=== PATIENT | male | born 1935 | race Caucasian/White ===

== ENCOUNTER 2016-11-28 13:51 | Inpatient (IN) | payer OTHER, MEDICARE ==
[~2016-11-28] VITALS: Ht 177.8 cm; Wt 85.0 kg
[~2016-11-28 13:51] MED LIST: DONE10TA14 PO; LISI30TA44 PO; METO50TA PO; RIFA150 PO; WARF5TAB PO; Z.0.COMMODE-3:1; Z.0.CPM; Z.0.WALKERFRONT; ZOCO10TA PO; ZOCO20TA PO
[2016-12-01] MEDS ORDERED: INSULIN HUMAN REGULAR 1,000 UNITS/10 ML VIAL SQ PRN (14:00)
[2016-12-01] MEDS: CHLORHEXIDINE GLUCONATE 4% SOLN 120 ML BTL TOP SCH (14:00)
[2016-12-01] MEDS ORDERED: METOPROLOL TARTRATE 25 MG TAB PO PRN (14:00)
[2016-12-01] MEDS ORDERED: SODIUM CHLORID 0.9% 500 ML IV SCH (14:00)
[2016-12-01] MEDS: LACTATED RINGER'S 1000 ML IV SCH (14:15)
[2016-12-01] MEDS ORDERED: VITA200013 PO (14:24)
[2016-12-01] MEDS ORDERED: PYRI100T PO (14:24)
[2016-12-01] MEDS ORDERED: ASCOPOW PO (14:24)
[2016-12-01] MEDS ORDERED: MEMA1TAB2 PO (14:24)
[2016-12-01] MEDS ORDERED: LISI30TA4 PO (14:24)
[2016-12-01] MEDS ORDERED: FISH120014 PO (14:24)
[2016-12-01] MEDS ORDERED: MULT1TAB84 PO (14:24)
[2016-12-01] MEDS ORDERED: DONE10TA7 PO (14:24)
[2016-12-01] MEDS ORDERED: METO50TA PO (14:24)
[2016-12-01] MEDS ORDERED: CO Q200C PO (14:24)
[2016-12-01] MEDS ORDERED: VITA100021 SL (14:24)
[2016-12-01] MEDS ORDERED: ONDANSETRON HCL 4 MG/2 ML VIAL IV PUSH ONE (14:25)
[2016-12-01] MEDS ORDERED: PROPOFOL 200 MG/20 ML AMP IV ONE (14:25)
[2016-12-01] MEDS ORDERED: LACTATED RINGER'S 1000 ML INJ 1,000 ML IV ONE (14:25)
[2016-12-01] MEDS ORDERED: NEOSTIGMINE 3 MG/3 ML SYR IV ONE (14:25)
[2016-12-01] MEDS ORDERED: ePHEDrine/NS 25 MG/5 ML SYR IV ONE (14:25)
[2016-12-01] MEDS ORDERED: GENTAMICIN SULFATE 80 MG/2 ML VIAL ONE (14:27)
[2016-12-01 14:44] VITALS: BP 143/80; PULSE 71; RESP 20; TEMP 97.9; O2SAT 95
[2016-12-01] MEDS ORDERED: VANCOMYCIN HCL 1000 MG VIAL ONE (16:04)
[2016-12-01] MEDS ORDERED: ceFAZolin 2 GM PREMIX 50 ML ONE (16:04)
[2016-12-01] MEDS ORDERED: *morphine SULFATE 8 MG/ML PERIprocedure ONLY ONE ×2 (17:31→17:38)
[2016-12-01] MEDS ORDERED: fentaNYL CITRATE 250 MCG/5 ML AMP ONE (17:38)
[2016-12-01] MEDS ORDERED: ZOLPIDEM TARTRATE 5 MG TAB PO PRN (17:45)
[2016-12-01] MEDS ORDERED: MORPHINE SULFATE 8 MG/ML INJ IM PRN (17:45)
[2016-12-01] MEDS ORDERED: ACETAMINOPHEN/HYDROcodone 325 MG/7.5 MG TAB PO PRN ×2 (17:45)
[2016-12-01] MEDS ORDERED: ONDANSETRON HCL 4 MG/2 ML VIAL IVP PRN (17:45)
[2016-12-01] MEDS ORDERED: SODIUM CHLORIDE 0.9% FLUSH 5 ML FLUSH IVF PRN (17:45)
[2016-12-01] MEDS ORDERED: Post-op Orders (for Pharmacy) MISC XX ONE (17:45)
[2016-12-01] MEDS ORDERED: ALUMINUM/MAGNESIUM/SIMETH 30 ML CUP PO PRN (17:45)
--- NOTE | 2016-12-01 17:52 | HHI.PR ---
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
[2016-12-01] MEDS ORDERED: NALOXONE HCL 0.4 MG/ML AMP IV PRN (18:00)
[2016-12-01] MEDS: LACTATED RINGER'S 1000 ML INJ 1,000 ML IV SCH (18:00)
[2016-12-01] MEDS ORDERED: MORPHINE SULFATE 30 MG/30 ML PCA IV SCH (18:00)
[2016-12-01] MEDS ORDERED: *HYDROmorphone PF 1 MG VIAL PERIprocedural Use ONLY ONE (18:22)
--- NOTE | 2016-12-01 19:14 | RADRPT ---
EXAM DATE/TIME: 12/01/2016 18:48 [facility] COMPARISON: KNEE LEFT LTD (1 OR 2VWS), June 02, 2016, 17:33. INDICATIONS : Evaluate hardware placement left knee MEDICAL HISTORY : None. SURGICAL HISTORY : None. ENCOUNTER: Initial ACUITY: 1 day PAIN SCORE: 0/10 LOCATION: Left knee FINDINGS: The patient has a total knee prosthesis in place. There are fasteners seen at the late ral aspect of the distal femur and lateral aspect of the proximal tibia. The patient appears to have a track in the femur which may be from collateral ligament repair. The patient has a large effusion . There is a drain in place. Skin radha are seen anteriorly. CONCLUSION: Surgical hardware that appears well placed as described above. Petar Devi MD on December 01, 2016 at 19:02 Board Certified Radiologist. This report was verified electronically.
[2016-12-01 20:45] VITALS: BP 126/73; PULSE 76; RESP 20; TEMP 96; O2SAT 100
[2016-12-01] MEDS: SODIUM CHLORIDE 0.9% FLUSH 5 ML FLUSH IVF SCH (21:40)
[2016-12-01] MEDS: MEMANTINE HCL 10 MG TAB PO SCH (21:40)
[2016-12-01] MEDS: PCA - TOTAL MG MORPHINE DELIVERED PER SHIFT SCH (22:00)
[2016-12-01 22:16] LABS: RHEUMATOID FACTOR TRIGGER LESS THAN 10.0 IU/ML (0.0-14.9)
[2016-12-02] VITALS (8 sets, daily range): BP systolic 107–166; BP diastolic 62–86; PULSE 74–123; RESP 16–21; TEMP 95.2–100.7; O2SAT 93–99
[2016-12-02] MEDS: PCA - TOTAL MG MORPHINE DELIVERED PER SHIFT SCH (05:09)
[2016-12-02] MEDS: LACTATED RINGER'S 1000 ML INJ 1,000 ML IV SCH ×2 (05:10→18:05)
--- NOTE | 2016-12-02 06:46 | PD.ORT.PN ---
Subjective Subjective Remarks POD#1 L Rev Tibia poly,complete synevectomy Explained to patient operative findings Patient mildly confused Objective Vitals Vital Signs Date Time Temp Pulse Resp B/P Pulse Ox O2 Delivery O2 Flow Rate FiO2 12/02/16 04:39 99.0 94 21 134/77 97 12/02/16 02:09 97 12/02/16 00:50 95.2 74 21 107/63 97 12/01/16 20:45 96.0 76 20 126/73 100 12/01/16 19:15 98.4 69 12 124/69 100 Nasal Cannula 2 12/01/16 18:36 12 12/01/16 18:15 74 14 130/83 100 12/01/16 18:00 74 14 129/78 99 12/01/16 17:45 80 12 121/63 96 12/01/16 17:30 82 12 128/78 99 Nasal Cannula 2 12/01/16 17:27 97.4 91 12 138/80 92 Nasal Cannula 2 12/01/16 14:44 97.9 71 20 143/80 95 I/O 12/01/16 12/01/16 12/01/16 12/02/16 12/02/16 12/02/16 07:00 15:00 23:00 07:00 15:00 23:00 Intake Total 2098 ml 481 ml Output Total 190 ml 0 ml Balance 1908 ml 481 ml Intake Oral 240 ml IV Total 458 ml 481 ml Other 1400 ml Output Drainage Total 140 ml 0 ml Estimated Blood Loss 50 ml Bladder Scan Volume Amount 248 ml # Voids 0 # Bowel Movements 0 Imaging Last 24 hours Impressions Knee X-Ray 12/01/16 1085 Signed Impressions: Service Date/Time: Thursday, December 01, 2016 18:48 - CONCLUSION: Surgical hardware that appears well placed as described above. Petar Devi MD Objective Remarks N/V intact Neg Chica's;No calf tenderness Dressings,drain intact Assessment & Plan Assessment and Plan PT today,full WBA D/C drain 12/03 PICC line today Await ID E&M Await multiple C&S result Ortho stable Tito Gill MD Dec 02, 2016 06:46
[2016-12-02 07:12] LABS: HEMATOCRIT 33.1 % (39.0-51.0); REVIEW FLAG FINAL
[2016-12-02 07:17] LABS: PROTHROMBIN TIME - PATIENT 11.4 SEC (9.8-11.6)
[2016-12-02] MEDS: METOPROLOL TARTRATE 50 MG TAB PO SCH (08:46)
[2016-12-02] MEDS: LISINOPRIL 10 MG TAB PO SCH (08:46)
[2016-12-02] MEDS: MEMANTINE HCL 10 MG TAB PO SCH ×2 (08:46→20:10)
[2016-12-02] MEDS: DONEPEZIL HCL 5 MG TAB PO SCH (08:46)
[2016-12-02] MEDS: SODIUM CHLORIDE 0.9% FLUSH 5 ML FLUSH IVF SCH ×2 (08:47→20:11)
[2016-12-02] MEDS ORDERED: Vancomycin Consult Pharmacy 1 EA OTHER SCH (09:15)
[2016-12-02] MEDS ORDERED: VANCOMYCIN INJ 1,000 MG in SODIUM CHLOR 0.9% 250 ML INJ 250 ML IV ONE (09:15)
--- NOTE | 2016-12-02 09:24 | PD.CONS ---
History of Present Illness Service Infectious Disease Consult Requested By Dr Bhavin Gill Reason for Consult Evaluate patient for possible infected left total knee arthroplasty Primary Care Physician Anupam Penn MD Diagnoses: History of Present Illness Patient seen and examined. Records reviewed. Patient is a very poor historian. Patient is a 81-year-old male who was initially diagnosed to have infected prostheses back in March 2015, culture grew staph epidermidis that type time, treated with debridement and retention of the prostheses, and he received a course of IV antibiotics. He was seen in infectious disease specialist at that time and apparently after he has completed IV antibiotics, was placed on multiple courses of oral antibiotics. He reported no improvement in the swelling, and he was subsequently admitted to [facility] May 2016 and underwent revision of his arthroplasty and all the exchange. Multiple cultures at that time including routine culture, AFB, and fungal culture all came back negative. He received another course of IV vancomycin, and followed up with the infectious disease specialist as an outpatient. It was initially planned that he be on chronic oral suppressive antibiotics, but apparently the antibiotics were discontinued in September 2016. He was apparently doing fairly well up until about a week or so ago when he had an acute onset of swelling in his left knee. This was associated with pain especially when he puts weight on it. He had noted a little bit of pink discoloration on the knee. He went to his orthopedic surgeon, and had some blood work done, as well as aspiration of his left knee. Apparently purulent fluid was aspirated, and cultures subsequently came back negative. Gram stain showed moderate WBC but no organisms seen. His sedimentation rate at that time was 22, but his C-reactive protein was 120. It was decided to bring the patient to the hospital and have repeat surgery. Yesterday he underwent artery to the left knee, and had synovectomy, and some revision. Intraoperative specimens were sent, and those are currently pending. Patient currently is febrile up to 101. He has a mild cough that is fairly dry. Denies any shortness of breath. He denies any nausea or vomiting abdominal pain diarrhea. He does have some problem with urination, and at times has hesitancy, as well as dysuria. He received Ancef and vancomycin for perioperative prophylaxis. Infectious disease consultation has been requested to evaluate for possible infected left total knee arthroplasty. Review of Systems Constitutional: COMPLAINS OF: Fever, Chills Eyes: DENIES: Eye pain Ears, nose, mouth, throat: DENIES: Nasal discharge, Oral lesions, Throat pain, Ear Pain, Sinus Pain Respiratory: COMPLAINS OF: Cough, DENIES: Sputum production, Shortness of breath Cardiovascular: DENIES: Chest pain, Palpitations Gastrointestinal: DENIES: Abdominal pain, Diarrhea, Nausea, Vomiting, Difficulty Swallowing Genitourinary: COMPLAINS OF: Urgency, Dysuria Musculoskeletal: COMPLAINS OF: Joint pain, Joint Swelling Integumentary: DENIES: Rash Immunologic/allergic: DENIES: Urticaria Neurologic: DENIES: Headache Psychiatric: COMPLAINS OF: Confusion Past Family Social History Allergies: Coded Allergies: Penicillin (Verified Allergy, Severe, 12/01/16) Sulfa (Verified Allergy, Severe, 12/01/16) Past Medical History Degenerative joint disease Left knee infection 2014 with staph epi Right knee infection 2012 with Moraxella Prostate cancer Shingles Past Surgical History Bowel surgery Bilateral total knee arthroplasty, and subsequent multiple surgeries Prostatectomy Social History Lives with his significant other No smoking Occasional alcohol Denies illicit drug Physical Exam Vital Signs Vital Signs Date Time Temp Pulse Resp B/P Pulse Ox O2 Delivery O2 Flow Rate FiO2 12/02/16 08:43 100.7 123 18 166/86 95 12/02/16 04:39 99.0 94 21 134/77 97 12/02/16 02:09 97 12/02/16 00:50 95.2 74 21 107/63 97 12/01/16 20:45 96.0 76 20 126/73 100 12/01/16 19:15 98.4 69 12 124/69 100 Nasal Cannula 2 12/01/16 18:36 12 12/01/16 18:15 74 14 130/83 100 12/01/16 18:00 74 14 129/78 99 12/01/16 17:45 80 12 121/63 96 12/01/16 17:30 82 12 128/78 99 Nasal Cannula 2 12/01/16 17:27 97.4 91 12 138/80 92 Nasal Cannula 2 12/01/16 14:44 97.9 71 20 143/80 95 Physical Exam GENERAL: This is a well-nourished, well-developed male, awake and alert, has some confusion, poor memory, NAD SKIN: Warm and dry, no generalized rash, ecchymosis or emboli HEAD: Atraumatic. Normocephalic. No temporal or scalp tenderness. EYES: [place] conjunctivae, no petechia or hemorrhage. Pupils equal round and reactive. Extraocular motions intact. No scleral icterus. No injection or drainage. ENT: Nose without bleeding, or purulent drainage. Moist oral mucosa. Throat without exudate or erythema. NECK: Supple, nontender, no meningeal signs. No nuchal rigidity. No lymphadenopathy. CARDIOVASCULAR: Regular rate and rhythm without murmurs, gallops, or rubs. RESPIRATORY: Clear to auscultation. Breath sounds equal bilaterally. No wheezes , rales, or rhonchi. GASTROINTESTINAL: Abdomen soft, has a large ventral/incisional hernia, very laxed abdominal wall, non-tender, nondistended. Bowel sounds are present and normoactive No hepato-splenomegaly, or palpable masses. No guarding. MUSCULOSKELETAL: RLE without clubbing, cyanosis, or edema. No joint effusion , or edema noted. No calf tenderness. LLE: has dressing, dry and intact and immobilizer NEUROLOGICAL: Awake and alert. Cranial nerves II through XII intact. Motor and sensory grossly within normal limits. Five out of 5 muscle strength in all muscle groups. Normal speech. PSYCH: Calm an cooperative LINE: PIV with no evidence of ifection Laboratory Laboratory Tests Test 12/01/16 12/02/16 21:38 06:58 Rheumatoid Factor Screen NEGATIVE Rheumatoid Factor Titer Hemoglobin 11.5 Hematocrit 33.1 Prothrombin Time 11.4 Prothromb Time International 1.0 Ratio Date/Time Procedure Status Source Growth 12/01/16 17:17 Fungal Smear Received Wound Knee Pending 12/01/16 17:17 Fungal Culture Received Wound Knee Pending 12/01/16 17:17 Acid Fast Stain Received Wound Knee Pending 12/01/16 17:17 Mycobacterial Culture Received Wound Knee Pending 12/01/16 17:11 Gram Stain Received Wound Knee Pending 12/01/16 17:11 Wound Culture Received Wound Knee Pending Result Diagram: 12/02/16 0658 Imaging RADIOLOGY STUDIES/FILMS REVIEWED Last Impressions Knee X-Ray 12/01/16 6327 Signed Impressions: Service Date/Time: Thursday, December 01, 2016 18:48 - CONCLUSION: Surgical hardware that appears well placed as described above. Petar Devi MD Assessment and Plan Assessment and Plan IMPRESSION Prob infected LTKA - has had previous debridement, and multiple course of IV Abx as well as oral Abx Fever, ?related to L knee - ?other source - has mild cough and has some complaints Dementia Previous Hx carlito TLKA infection Allergy to PCN but tolerates cephalosporins RECOMMENDATION Get 2 blood cultures Repeat labs, including CBC, CMP, sedimentation rate, and C-reactive protein UA and culture Will start IV vancomycin If UA abnormal, will add gram-negative coverage Chest x-ray to evaluate cough and fever - Clinically does not seem to have any signs and symptoms to suggest pneumonia Follow cultures - Adjust antibiotics once cultures available Monitor progress I will determine course of antibiotics once workup is completed, and after discussion with orthopedic surgery I will follow along with you. Thank you for this consultation Discussed Condition With Discussed with Bruna Maria MD Dec 02, 2016 09:24
--- NOTE | 2016-12-02 10:27 | PD.CONS ---
HPI Service [facility] Consult Requested By Orthopedic surgery Reason for Consult Medical management Primary Care Physician Anupam Penn MD Diagnoses: History of Present Illness 81 year-old male with a history of hypertension, hyperlipidemia, dementia, known infected prostheses back in March 2015 who had received multiple course of antibiotics along with revision of his arthroplasty and all the exchange back in May 2016 was taken to the operating room yesterday 12/01/16 and underwent L Knee arthrotomy,complete synevectomy, revisional tibial polyethylene plastic, for which infectious disease patient has been consulted and patient currently on IV antibiotics with cultures pending. He was seen in his room appears pleasant however confused. Denies any chest pain or shortness of breath Review of Systems Other 12 systems reviewed and are negative except for the ones mentioned in the history of present illness Past Family Social History Allergies: Coded Allergies: Penicillin (Verified Allergy, Severe, 12/01/16) Sulfa (Verified Allergy, Severe, 12/01/16) Past Medical History Degenerative joint disease Left knee infection 2014 with staph epi Right knee infection 2012 with Moraxella Hypertension Osteoarthritis Prostate cancer Shingles Past Surgical History Bowel surgery Bilateral total knee arthroplasty Prostatectomy Family History Noncontributory Social History Denies illicit drug, tobacco and reports social alcohol Physical Exam Vital Signs Vital Signs Date Time Temp Pulse Resp B/P Pulse Ox O2 Delivery O2 Flow Rate FiO2 12/02/16 08:43 100.7 123 18 166/86 95 12/02/16 04:39 99.0 94 21 134/77 97 12/02/16 02:09 97 12/02/16 00:50 95.2 74 21 107/63 97 12/01/16 20:45 96.0 76 20 126/73 100 12/01/16 19:15 98.4 69 12 124/69 100 Nasal Cannula 2 12/01/16 18:36 12 12/01/16 18:15 74 14 130/83 100 12/01/16 18:00 74 14 129/78 99 12/01/16 17:45 80 12 121/63 96 12/01/16 17:30 82 12 128/78 99 Nasal Cannula 2 12/01/16 17:27 97.4 91 12 138/80 92 Nasal Cannula 2 12/01/16 14:44 97.9 71 20 143/80 95 Physical Exam GENERAL: This is a well-nourished, well-developed patient, in no apparent distress. SKIN: No rashes, ecchymoses or lesions. Cool and dry. HEAD: Atraumatic. Normocephalic. No temporal or scalp tenderness. EYES: Pupils equal round and reactive. Extraocular motions intact. No scleral icterus. No injection or drainage. ENT: Nose without bleeding, purulent drainage or septal hematoma. Throat without erythema, tonsillar hypertrophy or exudate. Uvula midline. Airway patent. NECK: Trachea midline. No JVD or lymphadenopathy. Supple, nontender, no meningeal signs. CARDIOVASCULAR: Regular rate and rhythm without murmurs, gallops, or rubs. RESPIRATORY: Clear to auscultation. Breath sounds equal bilaterally. No wheezes , rales, or rhonchi. GASTROINTESTINAL: Abdomen soft, non-tender, nondistended. No hepato-splenomegaly , or palpable masses. No guarding. MUSCULOSKELETAL: Extremities without clubbing, cyanosis, or edema. Dressing intact and clean over left lower extremity NEUROLOGICAL: Awake and alert. Cranial nerves II through XII intact. Motor and sensory grossly within normal limits. Five out of 5 muscle strength in all muscle groups. Normal speech. Laboratory Laboratory Tests Test 12/01/16 12/02/16 21:38 06:58 Rheumatoid Factor Screen NEGATIVE Rheumatoid Factor Titer Hemoglobin 11.5 Hematocrit 33.1 Prothrombin Time 11.4 Prothromb Time International 1.0 Ratio Date/Time Procedure Status Source Growth 12/01/16 17:17 Gram Stain - Final Resulted Wound Knee 12/01/16 17:17 Wound Culture Resulted Wound Knee Pending 12/01/16 17:17 Fungal Smear - Final Resulted Wound Knee NO FUNGAL ELEMENTS SEEN. 12/01/16 17:17 Fungal Culture Resulted Wound Knee Pending 12/01/16 17:17 Acid Fast Stain Received Wound Knee Pending 12/01/16 17:17 Mycobacterial Culture Received Wound Knee Pending 12/01/16 17:11 Gram Stain Received Wound Knee Pending 12/01/16 17:11 Wound Culture Received Wound Knee Pending Result Diagram: 12/02/16 0658 Imaging Last Impressions Knee X-Ray 12/01/16 1001 Signed Impressions: Service Date/Time: Thursday, December 01, 2016 18:48 - CONCLUSION: Surgical hardware that appears well placed as described above. Petar Devi MD Assessment and Plan Assessment and Plan 81-year-old male with Possible Infected LTKA: Multiple prior surgeries with multiple treatment with different course of IV and by mouth antibiotics and now Patient status post L Knee arthrotomy,complete synevectomy, revisional tibial polyethylene plastic . Appreciate input from orthopedic surgery. Currently on IV vancomycin per infectious disease specialist and monitor cultures. PT consult to treat and eval History of hypertension, dementia and other chronic medical conditions: Continue of outpatient medications DVT prophylaxis: Lovenox Thank you for this consultation Code Status Full code Discussed Condition With Patient Maximus Orozco MD Dec 02, 2016 10:27 Maximus Orozco MD Dec 02, 2016 10:27
--- NOTE | 2016-12-02 10:57 | RADRPT ---
EXAM DATE/TIME: 12/02/2016 09:57 [facility] COMPARISON: CHEST SINGLE AP, June 04, 2016, 16:03. INDICATIONS : Cough and fever. MEDICAL HISTORY : None. SURGICAL HISTORY : None. ENCOUNTER: Initial ACUITY: 1 day PAIN SCORE: 0/10 LOCATION: Bilateral chest FINDINGS: A single AP portable erect view of the chest was obtained and again demonstrates streaky opacity at t he left lung base. The right lung is clear. The heart size is at the upper limits normal with no susy hilar edema. The previously noted right-sided PICC line has been removed. There is questionable minim al blunting of left costophrenic angle. CONCLUSION: Mild streaky opacity remains at the left lung base which represent recurrent pneumonia. Alternatively this could represent scarring and/or atelectasis. Alvaro De La Fuente MD on December 02, 2016 at 10:54 Board Certified Radiologist. This report was verified electronically.
[2016-12-02 11:06] LABS: BLOOD, URINE NEG (NEG); GLUCOSE,URINE NEG (NEG); KETONE, URINE NEG (NEG); NITRITE,URINE NEG (NEG); PH, URINE 7.5 (5.0-8.5); URINE COLOR YELLOW (YELLW/STRAW)
[2016-12-02 11:11] LABS: COMMENT (UR) CULT NOT INDICATED; CULTURE IF INDICATED CULT NOT INDICATED
[2016-12-02 12:15] LABS: AUTOMATED NEUTROPHIL # 6.6 TH/MM3 (1.8-7.7); BASOPHIL % 0.3 % (0.0-2.0); EOSINOPHIL % 0.6 % (0.0-4.0); HEMATOCRIT 33.3 % (39.0-51.0); HEMO FLAGS DIFF FINAL; LYMPH % 3.3 % (9.0-44.0); LYMPHOCYTE # 0.3 TH/MM3 (1.0-4.8); MEAN CELL VOLUME 87.3 FL (80.0-100.0); MEAN CORPUSCULAR HGB CONC 34.4 % (32.0-36.0); MONO % 10.3 % (0.0-8.0); NEUT % 85.5 % (16.0-70.0); PLATELET COUNT 212 TH/MM3 (150-450); RED BLOOD COUNT 3.81 MIL/MM3 (4.50-5.90); RED CELL DISTRIBUTION WIDTH 13.5 % (11.6-17.2); WHITE BLOOD COUNT 7.7 TH/MM3 (4.0-11.0)
[2016-12-02 12:40] LABS: ALT (GPT) 23 U/L (12-78); ANION GAP 8 MEQ/L (5-15); AST (GOT) 30 U/L (15-37); BICARBONATE 24.9 MEQ/L (21.0-32.0); BLOOD UREA NITROGEN 11 MG/DL (7-18); CHLORIDE 98 MEQ/L (98-107); GLOMERULAR FILTRATION RATE 74 ML/MIN (>89); POTASSIUM 4.3 MEQ/L (3.5-5.1); SODIUM (NA) 131 MEQ/L (136-145)
[2016-12-02 12:43] LABS: ALKALINE PHOSPHATASE 54 U/L (45-117); TOTAL BILIRUBIN ADULT 0.4 MG/DL (0.2-1.0)
[2016-12-02 12:44] LABS: WESTERGREN SEDIMENTATION RATE 57 mm/hr (0-20)
[2016-12-02] MEDS ORDERED: MAGNESIUM HYDROXIDE SUSP 30 ML CUP PO ONE (13:00)
[2016-12-02] MEDS: LACTATED RINGER'S 1000 ML IV SCH (14:00)
[2016-12-02] MEDS: CHLORHEXIDINE GLUCONATE 4% SOLN 120 ML BTL TOP SCH (14:00)
[2016-12-02] MEDS: WARFARIN SOD 5 MG TAB PO SCH (16:36)
[2016-12-02] MEDS: ACETAMINOPHEN 325 MG TAB PO PRN (18:26)
[2016-12-02] MEDS: SENNOSIDES 8.6 MG TAB PO SCH (20:10)
[2016-12-02] MEDS: MAGNESIUM HYDROXIDE SUSP 30 ML CUP PO SCH (20:10)
[2016-12-03 00:26] VITALS: BP 98/52; PULSE 83; RESP 20; TEMP 98.7; O2SAT 97
[2016-12-03] MEDS: VANCOMYCIN INJ 1,250 MG in SODIUM CHLOR 0.9% 250 ML INJ 250 ML IV SCH ×2 (05:47→21:43)
[2016-12-03] MEDS: ACETAMINOPHEN 325 MG TAB PO PRN ×2 (05:50→16:45)
[2016-12-03 07:00] LABS: INTERNATIONAL NORMALIZED RATIO 1.1 RATIO
[2016-12-03] MEDS: LACTATED RINGER'S 1000 ML INJ 1,000 ML IV SCH ×2 (07:30→20:00)
--- NOTE | 2016-12-03 07:36 | PD.ORT.PN ---
Subjective Subjective Remarks pt doing well, no complaints alert and oriented Objective Vitals Vital Signs Date Time Temp Pulse Resp B/P Pulse Ox O2 Delivery O2 Flow Rate FiO2 12/03/16 00:26 98.7 83 20 98/52 97 12/02/16 20:50 100.4 86 21 118/67 93 12/02/16 19:26 18 12/02/16 16:00 100.7 93 16 119/62 93 12/02/16 12:00 100.6 91 16 141/76 95 12/02/16 11:10 99 21 12/02/16 08:43 100.7 123 18 166/86 95 I/O 12/02/16 12/02/16 12/02/16 12/03/16 12/03/16 12/03/16 07:00 15:00 23:00 07:00 15:00 23:00 Intake Total 1321 ml 480 ml 720 ml Output Total 500 ml 205 ml 200 ml Balance 821 ml 275 ml 520 ml Intake Oral 840 ml 480 ml 720 ml IV Total 481 ml Output Urine Total 500 ml 200 ml 200 ml Drainage Total 0 ml 5 ml Bladder Scan Volume Amount 248 ml # Voids 4 4 # Bowel Movements 0 0 0 Result Diagram: 12/02/16 1140 12/02/16 1140 Other Results Laboratory Tests Test 12/03/16 06:24 Prothrombin Time 12.0 SEC (9.8-11.6) Prothromb Time International 1.1 RATIO Ratio Imaging Last 24 hours Impressions Knee X-Ray 12/01/16 8495 Signed Impressions: Service Date/Time: Thursday, December 01, 2016 18:48 - CONCLUSION: Surgical hardware that appears well placed as described above. Petar Devi MD Objective Remarks left knee dressing dry and intact N/V intact Neg [place]'s;No calf tenderness Assessment & Plan Assessment and Plan POD # 2 s/p rev L TKA PT today, WBAT PICC line hopefully today Await multiple C&S result Ortho stable possible discharge home tomorrow with hhc if cx complete coumadin for dvt prop Fadia Chan Dec 03, 2016 07:36
[2016-12-03 07:53] VITALS: BP 114/68; PULSE 74; RESP 16; TEMP 98; O2SAT 94
[2016-12-03] MEDS: SODIUM CHLORIDE 0.9% FLUSH 5 ML FLUSH IVF SCH ×2 (08:19→20:25)
[2016-12-03] MEDS: MEMANTINE HCL 10 MG TAB PO SCH ×2 (08:19→20:23)
[2016-12-03] MEDS: METOPROLOL TARTRATE 50 MG TAB PO SCH (08:19)
[2016-12-03] MEDS: DONEPEZIL HCL 5 MG TAB PO SCH (08:19)
[2016-12-03] MEDS: MAGNESIUM HYDROXIDE SUSP 30 ML CUP PO SCH ×2 (08:19→20:23)
[2016-12-03] MEDS: LISINOPRIL 10 MG TAB PO SCH (08:19)
[2016-12-03] MEDS: CHLORHEXIDINE GLUCONATE 4% SOLN 120 ML BTL TOP SCH (08:20)
--- NOTE | 2016-12-03 11:11 | HHI.PR ---
Subjective Remarks Patient seen and examined Alert and oriented 3 Currently afebrile Objective Vitals Vital Signs Date Time Temp Pulse Resp B/P Pulse Ox O2 Delivery O2 Flow Rate FiO2 12/03/16 07:53 98.0 74 16 114/68 94 12/03/16 00:26 98.7 83 20 98/52 97 12/02/16 20:50 100.4 86 21 118/67 93 12/02/16 19:26 18 12/02/16 16:00 100.7 93 16 119/62 93 12/02/16 12:00 100.6 91 16 141/76 95 I/O 12/02/16 12/02/16 12/02/16 12/03/16 12/03/16 12/03/16 07:00 15:00 23:00 07:00 15:00 23:00 Intake Total 1321 ml 480 ml 970 ml Output Total 500 ml 205 ml 200 ml Balance 821 ml 275 ml 770 ml Intake Oral 840 ml 480 ml 720 ml IV Total 481 ml 250 ml Output Urine Total 500 ml 200 ml 200 ml Drainage Total 0 ml 5 ml Bladder Scan Volume Amount 248 ml # Voids 4 4 # Bowel Movements 0 0 0 Result Diagram: 12/02/16 1140 12/02/16 1140 Imaging Last Impressions Chest X-Ray 12/02/16 0000 Signed Impressions: Service Date/Time: Friday, December 02, 2016 09:57 - CONCLUSION: Mild streaky opacity remains at the left lung base which represent recurrent pneumonia. Alternatively this could represent scarring and/or atelectasis. Alvaro De La Fuente MD Knee X-Ray 12/01/16 1735 Signed Impressions: Service Date/Time: Thursday, December 01, 2016 18:48 - CONCLUSION: Surgical hardware that appears well placed as described above. Petar Devi MD Objective Remarks GENERAL: NAD and sitting in the chair SKIN: Warm and dry. HEAD: Normocephalic. EYES: No scleral icterus. No injection or drainage. NECK: Supple, trachea midline. No JVD or lymphadenopathy. CARDIOVASCULAR: Regular rate and rhythm without murmurs, gallops, or rubs. RESPIRATORY: Breath sounds equal bilaterally. No accessory muscle use. GASTROINTESTINAL: Abdomen soft, non-tender, nondistended. MUSCULOSKELETAL: No cyanosis, or edema. BACK: Nontender without obvious deformity. No CVA tenderness. A/P Assessment and Plan 81-year-old male with Possible Infected LTKA: Multiple prior surgeries with multiple treatment with different course of IV and by mouth antibiotics and now Patient status post L Knee arthrotomy,complete synevectomy, revisional tibial polyethylene plastic . Appreciate input from orthopedic surgery. Currently on IV vancomycin per infectious disease specialist and monitor cultures. PT consult to treat and eval. Would likely need PICC line prior to discharge History of hypertension, dementia and other chronic medical conditions: 0 current treatment DVT prophylaxis: Maximus Hines MD Dec 03, 2016 11:11
[2016-12-03 12:22] VITALS: BP 124/70; PULSE 78; RESP 16; TEMP 97.9; O2SAT 96
--- NOTE | 2016-12-03 13:16 | MP ---
cc: RACHEL GILL M.D., JON C. M.D. EJIE, UKONU O. MD DATE OF OPERATION December 01, 2016 PREOPERATIVE DIAGNOSES 1. 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 2. Status post left total knee arthroplasty, December 12, 2010. 3. Status post left knee arthrotomy, complete synovectomy, revision tibial polyethylene plastic, June 02, 2016. POSTOPERATIVE DIAGNOSES 1. 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 2. Status post left total knee arthroplasty, December 12, 2010. 3. Status post left knee arthrotomy, complete synovectomy, revision tibial polyethylene plastic, June 02, 2016. PROCEDURE Left knee arthrotomy, complete synovectomy, irrigation and debridement, revisional tibial polyethylene plastic component. SURGEON Jean Gill MD LAW FIRM ADMINISTRATOR Fadia Chan PA-C SPECIMEN 1. Debrided synovial tissue sent to pathology for final histological diagnosis. 2. Three separate soft tissue cultures were taken of the synovium anteriorly. These were sent for aerobic, anaerobic, cultures and sensitivity. 3. The first specimen was sent for aerobic and anaerobic culture and sensitivity. 4. The second specimen was sent for fungal cultures and sensitivities. The third specimen was sent for AFB smear and culture. 5. The fourth specimen was posterior knee synovial tissue that was sent for aerobic and anaerobic cultures and sensitivities. ESTIMATED BLOOD LOSS 50 cc. COMPLICATIONS None. ANESTHESIA General. DRAINS One. TOURNIQUET TIME 33 minutes at 275 mmHg. CONDITION Stable. PLAN OF ACTIVITY As per orders. INDICATIONS A 81-year-old male presents with the following history: The patient underwent a left total knee arthroplasty, cemented Biomet Maxim with removal of two bone radha from the proximal tibia on in December 12, 2010. The patient had done very well with this knee until May of 2016. He developed swelling of the knee. He underwent initially left knee arthroscopic surgery, arthroscopic lavage and drainage. Cultures did not show any type of bacterial infection but there was a possibility that the patient had been an oral antibiotic two weeks prior to that surgery. On June 02, 2016, the patient underwent a left knee arthrotomy, complete synovectomy, revision of tibial polyethylene plastic and again cultures from this operation showed no bacteria. The patient was empirically started on intravenous antibiotics and was continued on intravenous antibiotics for approximately two months. The patient was then placed on oral antibiotics by Dr. Butler that were discontinued on October 02, 2016. The patient last week early on Thursday morning on November 28, 2016, developed acute swelling and pain to the knee. He was seen in the office where an aspiration was performed; 60 cc of synovial fluid was aspirated. The fluid looked to be potentially purulent in nature. Synovial fluid analysis showed the patient to have more than 26,000 WBCs. Cultures initially were sent to [facility] of which Gram stain were taken that were negative. Because of insurance reasons, [facility] sent the specimen to [facility] and as of today, right before the surgery, the final cultures came back and as no growth in 72 hours. It had been discussed at length with the patient and with his with regards to management of the patient's knee. It was counseled that if he had complete removal of his tibial component, femoral component and patellar component and treated with a antibiotic cement bone spacer with intravenous antibiotics and then at a second stage undergo revision of the left total knee, he might not be able to survive that procedure and might not be able to walk on the leg again in the future. 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 In May of 2016 it was recommended for the patient to be treated medically with intravenous antibiotics and then medically with oral antibiotics for suppressive oral antibiotic therapy in his future. PROCEDURE My mortgage loan assistant Dustin Loaiza PA-C was present for the entire surgical case. She was medically necessary for entire case because of the complexity case and to facilitate the performance of the procedure. The DIESEL ENGINE I PIPE FITTER at the back table was not of the skill set for this case to manipulate the instruments e.g. the multiple different soft tissue retractors, trial implants and permanent implants. The patient was brought into the operating room, had satisfactory general anesthesia by the Department of Anesthesia. The left lower extremity was prepped and draped in the usual sterile manner. The extremity was exsanguinated by elevation and the tourniquet inflated to 275 mmHg. Anterior medial exposure to the knee was made, a capsulotomy performed. The patient was found to have effusion to the knee with somewhat purulent-looking fluid. This was drained. Complete synovectomy was performed in the anterior compartment. Three separate tissue specimens were taken. Specimen #1 was aerobic and anaerobic culture and sensitivities. Specimen #2 was fungal culture and sensitivities. Specimen #3 was AFB smear and cultures. Specimen #4 was from the posterior knee specimen, synovial tissue that was sent for aerobic and anaerobic culture and sensitivities. Complete synovectomy was done sharply with a knife and also with Bovie anticoagulation. Inspection of the femur anteriorly, mediolaterally and posteriorly showed no obvious loosening of the prosthesis. There was no evidence of loosening of the tibial component. First the clipping mechanism was removed, then the polyethylene plastic was removed. The knee was irrigated with 9000 cc of sterile saline antibiotic solution. A new 14 x 83 polyethylene plastic was then assembled onto the tibial tray with a new clip mechanism and this as a Biomet Vanguard polyethylene plastic. The tourniquet was deflated. All bleeders were coagulated. The knee was drained with an 8-Welsh Hemovac drain. The capsule and extensor mechanism were closed with #1 PDS sutures, the subcuticular in layers with 2-0 PDS suture. The skin was approximated with skin radha. Sterile dressing was applied. The patient tolerated the procedure well and arrived in the recovery room in stable and satisfactory condition. MD HARSHA Young/ZEENAT /5:26 PM /12:55 PM
--- NOTE | 2016-12-03 13:55 | HHI.IDPN ---
Subjective Subjective Remarks Notes reviewed Temps low grade this morning UA ok C/S from OR negative so far Original (+) C/S synovial fluid is from 2015: 1. STAPHYLOCOCCUS EPIDERMIDIS M.I.C. RX --------- --- AMPICILLIN/SULBACTAM <8/4 S OXACILLIN <0.25 S CEFTRIAXONE <8 S GENTAMICIN <4 S ERYTHROMYCIN >4 R CLINDAMYCIN 2 R DAPTOMYCIN <0.5 S VANCOMYCIN 2 S TETRACYCLINE >8 R TRIMETH/SULFA <0.5/9.5 S LEVOFLOXACIN <1 S LINEZOLID 2 S RIFAMPIN <[address] Bhavin Merino Patient had been on Minocycline and Rifampin as well as Cefdinir previously ( stopped September 2016) ESR 57 CRP 8 CXR mild blunting L costophrenic angle Antibiotics Vancomycin Lines PIV Past Medical History Degenerative joint disease Left knee infection 2014 with staph epi Right knee infection 2012 with Moraxella Prostate cancer Shingles Past Surgical History Bowel surgery Bilateral total knee arthroplasty, and subsequent multiple surgeries Prostatectomy Allergies: Coded Allergies: Penicillin (Verified Allergy, Severe, 12/01/16) Sulfa (Verified Allergy, Severe, 12/01/16) Objective . Vital Signs Date Time Temp Pulse Resp B/P Pulse Ox O2 Delivery O2 Flow Rate FiO2 12/03/16 07:53 98.0 74 16 114/68 94 12/03/16 00:26 98.7 83 20 98/52 97 12/02/16 20:50 100.4 86 21 118/67 93 12/02/16 19:26 18 12/02/16 16:00 100.7 93 16 119/62 93 12/02/16 12/02/16 12/03/16 15:00 23:00 07:00 Intake Total 480 ml 970 ml Output Total 205 ml 200 ml Balance 275 ml 770 ml Intake Oral 480 ml 720 ml IV Total 250 ml Output Urine Total 200 ml 200 ml Drainage Total 5 ml # Voids 4 4 # Bowel Movements 0 0 . Laboratory Tests Test 12/02/16 12/02/16 06:58 11:40 Hemoglobin 11.5 GM/DL 11.5 GM/DL Hematocrit 33.1 % 33.3 % White Blood Count 7.7 TH/MM3 Red Blood Count 3.81 MIL/MM3 Mean Corpuscular Volume 87.3 FL Mean Corpuscular Hemoglobin 30.0 PG Mean Corpuscular Hemoglobin 34.4 % Concent Red Cell Distribution Width 13.5 % Platelet Count 212 TH/MM3 Mean Platelet Volume 7.1 FL Neutrophils (%) (Auto) 85.5 % Lymphocytes (%) (Auto) 3.3 % Monocytes (%) (Auto) 10.3 % Eosinophils (%) (Auto) 0.6 % Basophils (%) (Auto) 0.3 % Neutrophils # (Auto) 6.6 TH/MM3 Lymphocytes # (Auto) 0.3 TH/MM3 Monocytes # (Auto) 0.8 TH/MM3 Eosinophils # (Auto) 0.0 TH/MM3 Basophils # (Auto) 0.0 TH/MM3 CBC Comment DIFF FINAL Differential Comment Erythrocyte Sedimentation Rate 57 mm/hr Laboratory Tests Test 12/02/16 11:40 Sodium Level 131 MEQ/L Potassium Level 4.3 MEQ/L Chloride Level 98 MEQ/L Carbon Dioxide Level 24.9 MEQ/L Anion Gap 8 MEQ/L Blood Urea Nitrogen 11 MG/DL Creatinine 0.98 MG/DL Estimat Glomerular Filtration 74 ML/MIN Rate Random Glucose 99 MG/DL Calcium Level 8.3 MG/DL Total Bilirubin 0.4 MG/DL Aspartate Amino Transf 30 U/L (AST/SGOT) Alanine Aminotransferase 23 U/L (ALT/SGPT) Alkaline Phosphatase 54 U/L C-Reactive Protein 8.13 MG/DL Total Protein 6.7 GM/DL Albumin 2.9 GM/DL Microbiology Date/Time Procedure Status Source Growth 12/01/16 17:11 Gram Stain - Final Resulted Wound Knee 12/01/16 17:11 Wound Culture - Preliminary Resulted Wound Knee NO GROWTH IN 48 HOURS. 12/01/16 17:11 Fungal Smear - Final Resulted Wound Knee NO FUNGAL ELEMENTS SEEN. 12/01/16 17:11 Fungal Culture Resulted Wound Knee Pending 12/01/16 17:11 Acid Fast Stain Received Wound Knee Pending 12/01/16 17:11 Mycobacterial Culture Received Wound Knee Pending 12/01/16 17:11 Gram Stain Received Wound Knee Pending 12/01/16 17:11 Wound Culture Received Wound Knee Pending 12/01/16 17:11 Gram Stain - Final Resulted Wound Knee 12/01/16 17:11 Wound Culture - Preliminary Resulted Wound Knee NO GROWTH IN 48 HOURS. 12/01/16 17:11 Fungal Smear - Final Resulted Wound Knee NO FUNGAL ELEMENTS SEEN. 12/01/16 17:11 Fungal Culture Resulted Wound Knee Pending 12/01/16 17:11 Gram Stain - Final Resulted Wound Knee 12/01/16 17:11 Wound Culture - Preliminary Resulted Wound Knee NO GROWTH IN 48 HOURS. 12/01/16 17:11 Acid Fast Stain Received Wound Knee Pending 12/01/16 17:11 Mycobacterial Culture Received Wound Knee Pending 12/01/16 17:11 Fungal Smear - Final Resulted Wound Knee NO FUNGAL ELEMENTS SEEN. 12/01/16 17:11 Fungal Culture Resulted Wound Knee Pending 12/01/16 17:11 Acid Fast Stain Received Wound Knee Pending 12/01/16 17:11 Mycobacterial Culture Received Wound Knee Pending 12/01/16 17:17 Gram Stain - Final Resulted Wound Knee 12/01/16 17:17 Wound Culture - Preliminary Resulted Wound Knee NO GROWTH IN 48 HOURS. 12/01/16 17:17 Fungal Smear - Final Resulted Wound Knee NO FUNGAL ELEMENTS SEEN. 12/01/16 17:17 Fungal Culture Resulted Wound Knee Pending 12/01/16 17:17 Acid Fast Stain Received Wound Knee Pending 12/01/16 17:17 Mycobacterial Culture Received Wound Knee Pending 12/02/16 11:40 Aerobic Blood Culture - Preliminary Resulted Blood Peripheral NO GROWTH IN 1 DAY 12/02/16 11:40 Anaerobic Blood Culture - Preliminary Resulted Blood Peripheral NO GROWTH IN 1 DAY 12/02/16 11:48 Aerobic Blood Culture - Preliminary Resulted Blood Peripheral NO GROWTH IN 1 DAY 12/02/16 11:48 Anaerobic Blood Culture - Preliminary Resulted Blood Peripheral NO GROWTH IN 1 DAY Imaging Last Impressions Chest X-Ray 12/02/16 0000 Signed Impressions: Service Date/Time: Friday, December 02, 2016 09:57 - CONCLUSION: Mild streaky opacity remains at the left lung base which represent recurrent pneumonia. Alternatively this could represent scarring and/or atelectasis. Alvaro De La Fuente MD Knee X-Ray 12/01/16 1735 Signed Impressions: Service Date/Time: Thursday, December 01, 2016 18:48 - CONCLUSION: Surgical hardware that appears well placed as described above. Petar Devi MD Physical Exam GENERAL: awake and alert, NAD, up in chair SKIN: Warm and dry, no generalized rash, ecchymosis or emboli HEENT: [place] conjunctivae, no petechia or hemorrhage. No scleral icterus. No injection or drainage. ENT: Nose without bleeding, or purulent drainage. Moist oral mucosa. Throat without exudate or erythema. NECK: Supple, nontender, no meningeal signs. No nuchal rigidity. No lymphadenopathy. CARDIOVASCULAR: Regular rate and rhythm without murmurs, gallops, or rubs. RESPIRATORY: Clear to auscultation. Breath sounds equal bilaterally. No wheezes , rales, or rhonchi. GASTROINTESTINAL: Abdomen soft, has a large ventral/incisional hernia, very lax abdominal wall, non-tender, nondistended. Bowel sounds are present and normoactive. No guarding. MUSCULOSKELETAL: RLE without clubbing, cyanosis, or edema. No joint effusion , or edema noted. No calf tenderness. LLE: has dressing, dry and intact and immobilizer NEUROLOGICAL: Awake and alert. Cranial nerves II through XII intact. Motor and sensory grossly within normal limits. Five out of 5 muscle strength in all muscle groups. Normal speech. 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 - C/S from 2016 negative routine, AFB and fungal - C/S now negative so far after 48 hours - has had previous debridement, and multiple course of IV Abx as well as oral Abx Fever, ?related to L knee - ?other source - has mild cough and has some complaints Dementia Previous Hx carlito TLKA infection Allergy to PCN but tolerates cephalosporins RECOMMENDATION Follow C/S Monitor temps Continue IV vancomycin - likely 6-8 weeks IV, then oral Abx suppression Monitor progress Long discussion with Dr Bhavin Gill today - ideally 2 stage procedure treatment; but with his age and underlying dementia, patient still ambulatory and with 2 stage procedure risk of being bedridden quite high with inability to ambulate if patient undergoes 2 stage treatment. Ortho feels that business continuity manager IV Abx and chronic suppression would likely be best option for patient. He has tolerated Abx fairly well in the past. - options for suppressive oral Abx limited due to his allergies and the Abx susceptibility of the Staph epi: Keflex 500 BID or Ceftin 250 BID plus Rifampin 300 daily would be options for him - monitor for allergic reaction, GI side effects especially, diarrhea, C diff - give probiotics If temps stays ok, and C/S no other infection found, then arrangements can be made for D/C in next day or two Bruna Hairston MD Dec 03, 2016 13:55
[2016-12-03 16:34] VITALS: BP_SYST 120; BP_SYST 136; BP_DIAS 70; BP_DIAS 75; PULSE 70; PULSE 83; RESP 16; RESP 18; TEMP 100.6; TEMP 98.2; O2SAT 95
[2016-12-03] MEDS: WARFARIN SOD 5 MG TAB PO SCH (16:43)
[2016-12-03 20:10] VITALS: BP 129/77; PULSE 81; RESP 18; TEMP 98.2; O2SAT 95
[2016-12-03] MEDS: SENNOSIDES 8.6 MG TAB PO SCH (20:23)
[2016-12-03 23:10] VITALS: BP 134/70; PULSE 56; RESP 18; TEMP 98.7; O2SAT 97
[2016-12-04 04:05] VITALS: BP 132/71; PULSE 91; RESP 16; TEMP 99.7; O2SAT 95
[2016-12-04 05:22] LABS: INTERNATIONAL NORMALIZED RATIO 1.1 RATIO; PROTHROMBIN TIME - PATIENT 12.5 SEC (9.8-11.6)
[2016-12-04 08:00] VITALS: BP 138/87; PULSE 85; RESP 19; TEMP 98.8; O2SAT 96
[2016-12-04] MEDS: LACTATED RINGER'S 1000 ML INJ 1,000 ML IV SCH ×2 (08:30→21:00)
[2016-12-04] MEDS: MAGNESIUM HYDROXIDE SUSP 30 ML CUP PO SCH ×2 (09:00→20:03)
[2016-12-04] MEDS: METOPROLOL TARTRATE 50 MG TAB PO SCH (09:23)
[2016-12-04] MEDS: MEMANTINE HCL 10 MG TAB PO SCH ×2 (09:23→20:03)
[2016-12-04] MEDS: DONEPEZIL HCL 5 MG TAB PO SCH (09:23)
[2016-12-04] MEDS: LISINOPRIL 10 MG TAB PO SCH (09:24)
[2016-12-04] MEDS: SODIUM CHLORIDE 0.9% FLUSH 5 ML FLUSH IVF SCH ×2 (09:29→20:03)
--- NOTE | 2016-12-04 10:21 | PD.ORT.PN ---
Subjective Subjective Remarks pt doing well, no complaints of knee pain, doing well on Tylenol alert and oriented Objective Vitals Vital Signs Date Time Temp Pulse Resp B/P Pulse Ox O2 Delivery O2 Flow Rate FiO2 12/04/16 08:00 98.8 85 19 138/87 96 12/04/16 04:05 99.7 91 16 132/71 95 12/03/16 23:10 98.7 56 18 134/70 97 12/03/16 20:10 98.2 81 18 129/77 95 12/03/16 19:42 18 12/03/16 16:34 100.6 83 16 136/75 95 12/03/16 12:22 97.9 78 16 124/70 96 I/O 12/03/16 12/03/16 12/03/16 12/04/16 12/04/16 12/04/16 07:00 15:00 23:00 07:00 15:00 23:00 Intake Total 970 ml 1080 ml 480 ml 480 ml Output Total 200 ml 1050 ml Balance 770 ml 1080 ml 480 ml -570 ml Intake Oral 720 ml 1080 ml 480 ml 480 ml IV Total 250 ml Output Urine Total 200 ml 1050 ml # Voids 4 4 3 # Bowel Movements 0 5 0 1 Result Diagram: 12/02/16 1140 12/04/16 0455 Other Results Laboratory Tests Test 12/04/16 04:55 Prothrombin Time 12.5 SEC (9.8-11.6) Prothromb Time International 1.1 RATIO Ratio Imaging Last 24 hours Impressions Knee X-Ray 12/01/16 0625 Signed Impressions: Service Date/Time: Thursday, December 01, 2016 18:48 - CONCLUSION: Surgical hardware that appears well placed as described above. Petar Devi MD Objective Remarks seen by Dr. Tito Gill left knee dressing dry and intact N/V intact Neg Chica's;No calf tenderness Assessment & Plan Assessment and Plan POD # 3 s/p rev L TKA PT, WBAT PICC line hopefully today all cultures negative @ 72 hrs, antibiotics per I.D. Ortho stable discharge home with hhc today coumadin for dvt prop Fadia Chan Dec 04, 2016 10:21
--- NOTE | 2016-12-04 10:25 | HHI.FF ---
Face to Face Verification Diagnosis: (1) Infection of total left knee replacement Physical Therapy Gait training, Transfer training, bed to chair Knee: Total knee Right LE Weight Bearing: WB as tolerated Left LE Weight Bearing: WB as tolerated Nursing RN Days per Week: 5 x Week(s): 2 Nursing: Dressing changes (clean incision with alcohol and apply dry sterile dressing daily ) Additional Instructions Pt/INR q Thursday and , call/text results to Fadia ANDERSON [phone] Goal INR 1.5-1.8 PICC line for IV abx-- per I.D. I have seen patient Jones Finley on 12/04/16. My clinical findings support the need for the requested home health care services because: Deconditioned w/ increased weakness Limited ability to care for self I certify that my clinical findings support that this patient is homebound because: Post-op weakness Unsteady gait/balance Fadia Chan Dec 04, 2016 10:25
[2016-12-04 11:42] VITALS: BP 130/76; PULSE 74; RESP 18; TEMP 98; O2SAT 96
--- NOTE | 2016-12-04 12:30 | HHI.PR ---
Subjective Remarks Patient seen and examined Stable and afebrile Would like to be discharged home Objective Vitals Vital Signs Date Time Temp Pulse Resp B/P Pulse Ox O2 Delivery O2 Flow Rate FiO2 12/04/16 11:42 98.0 74 18 130/76 96 12/04/16 08:00 98.8 85 19 138/87 96 12/04/16 04:05 99.7 91 16 132/71 95 12/03/16 23:10 98.7 56 18 134/70 97 12/03/16 20:10 98.2 81 18 129/77 95 12/03/16 19:42 18 12/03/16 16:34 100.6 83 16 136/75 95 I/O 12/03/16 12/03/16 12/03/16 12/04/16 12/04/16 12/04/16 07:00 15:00 23:00 07:00 15:00 23:00 Intake Total 970 ml 1080 ml 480 ml 480 ml Output Total 200 ml 1050 ml Balance 770 ml 1080 ml 480 ml -570 ml Intake Oral 720 ml 1080 ml 480 ml 480 ml IV Total 250 ml Output Urine Total 200 ml 1050 ml # Voids 4 4 3 # Bowel Movements 0 5 0 1 Result Diagram: 12/02/16 1140 12/04/16 0455 Objective Remarks GENERAL: NAD and sitting in the chair SKIN: Warm and dry. HEAD: Normocephalic. EYES: No scleral icterus. No injection or drainage. NECK: Supple, trachea midline. No JVD or lymphadenopathy. CARDIOVASCULAR: Regular rate and rhythm without murmurs, gallops, or rubs. RESPIRATORY: Breath sounds equal bilaterally. No accessory muscle use. GASTROINTESTINAL: Abdomen soft, non-tender, nondistended. MUSCULOSKELETAL: No cyanosis, or edema. BACK: Nontender without obvious deformity. No CVA tenderness. A/P Assessment and Plan 81-year-old male with Possible Infected LTKA: Multiple prior surgeries with multiple treatment with different course of IV and by mouth antibiotics and now Patient status post L Knee arthrotomy,complete synevectomy, revisional tibial polyethylene plastic . Appreciate input from orthopedic surgery. Currently on IV vancomycin per infectious disease specialist and monitor cultures and NTD. PT consult to treat and eval. Would likely need PICC line prior to discharge History of hypertension, dementia and other chronic medical conditions: Continue with current treatment DVT prophylaxis: Lovenox Discharge Planning Discharge home per orthopedic surgery and when clear by infectious disease specialist Maximus Orozco MD Dec 04, 2016 12:30
[2016-12-04] MEDS ORDERED: PHARMACY ORDERED LAB XX ONE (15:45)
[2016-12-04 16:00] VITALS: BP 131/83; PULSE 69; RESP 18; TEMP 97.5; O2SAT 96
[2016-12-04] MEDS ORDERED: WARFARIN SOD 7.5 MG TAB PO ONE (16:00)
[2016-12-04] MEDS: VANCOMYCIN INJ 1,250 MG in SODIUM CHLOR 0.9% 250 ML INJ 250 ML IV SCH (16:01)
[2016-12-04] MEDS: SENNOSIDES 8.6 MG TAB PO SCH (20:03)
[2016-12-04 21:15] VITALS: BP 132/80; PULSE 82; RESP 18; TEMP 100.2; O2SAT 96
[2016-12-05 00:30] VITALS: BP 128/69; PULSE 76; RESP 18; TEMP 98.5; O2SAT 96
[2016-12-05 06:07] LABS: INTERNATIONAL NORMALIZED RATIO 1.3 RATIO; PROTHROMBIN TIME - PATIENT 14.7 SEC (9.8-11.6)
--- NOTE | 2016-12-05 06:19 | PD.ORT.PN ---
Subjective Subjective Remarks POD#1 L Rev Tibia poly,complete synevectomy No c/o pain No sob,no chest pain Patient mildly confused Objective Vitals Vital Signs Date Time Temp Pulse Resp B/P Pulse Ox O2 Delivery O2 Flow Rate FiO2 12/05/16 00:30 98.5 76 18 128/69 96 12/04/16 21:15 100.2 82 18 132/80 96 12/04/16 16:00 97.5 69 18 131/83 96 12/04/16 11:42 98.0 74 18 130/76 96 12/04/16 08:00 98.8 85 19 138/87 96 I/O 12/04/16 12/04/16 12/04/16 12/05/16 12/05/16 12/05/16 07:00 15:00 23:00 07:00 15:00 23:00 Intake Total 480 ml 1080 ml Output Total 1050 ml Balance -570 ml 1080 ml Intake Oral 480 ml 1080 ml Output Urine Total 1050 ml # Voids 4 # Bowel Movements 1 1 Result Diagram: 12/02/16 1140 12/04/16 0455 Other Results Laboratory Tests Test 12/05/16 05:37 Prothrombin Time 14.7 SEC (9.8-11.6) Prothromb Time International 1.3 RATIO Ratio Imaging Last 24 hours Impressions Knee X-Ray 12/01/16 7325 Signed Impressions: Service Date/Time: Thursday, December 01, 2016 18:48 - CONCLUSION: Surgical hardware that appears well placed as described above. Petar Devi MD Objective Remarks Left knee dressing dry and intact N/V intact Neg Chica's;No calf tenderness Assessment & Plan Assessment and Plan POD # 4 s/p rev L TKA PT, WBAT PICC line hopefully today all cultures negative @ 72 hrs, antibiotics per I.D. Ortho stable discharge home with hhc today coumadin for dvt prop Tito Gill MD Dec 05, 2016 06:18
[2016-12-05 07:58] VITALS: BP 128/78; PULSE 74; RESP 18; TEMP 98.1; O2SAT 96
[2016-12-05] MEDS: VANCOMYCIN INJ 1,250 MG in SODIUM CHLOR 0.9% 250 ML INJ 250 ML IV SCH (08:55)
[2016-12-05] MEDS: MEMANTINE HCL 10 MG TAB PO SCH (08:55)
[2016-12-05] MEDS: METOPROLOL TARTRATE 50 MG TAB PO SCH (08:55)
[2016-12-05] MEDS: DONEPEZIL HCL 5 MG TAB PO SCH (08:55)
[2016-12-05] MEDS: SODIUM CHLORIDE 0.9% FLUSH 5 ML FLUSH IVF SCH (08:55)
[2016-12-05] MEDS: LISINOPRIL 10 MG TAB PO SCH (08:55)
[2016-12-05] MEDS: MAGNESIUM HYDROXIDE SUSP 30 ML CUP PO SCH (08:56)
[2016-12-05] MEDS: LACTATED RINGER'S 1000 ML INJ 1,000 ML IV SCH (09:30)
--- NOTE | 2016-12-05 09:55 | HHI.IDPN ---
Subjective Subjective Remarks Notes reviewed [facility] low grade temps overnight NO evidence of new infection All C/S negatibe UA ok C/S from OR negative Original (+) C/S synovial fluid is from 2015: 1. STAPHYLOCOCCUS EPIDERMIDIS M.I.C. RX --------- --- AMPICILLIN/SULBACTAM <8/4 S OXACILLIN <0.25 S CEFTRIAXONE <8 S GENTAMICIN <4 S ERYTHROMYCIN >4 R CLINDAMYCIN 2 R DAPTOMYCIN <0.5 S VANCOMYCIN 2 S TETRACYCLINE >8 R TRIMETH/SULFA <0.5/9.5 S LEVOFLOXACIN <1 S LINEZOLID 2 S RIFAMPIN <1 S ESR 57 CRP 8 Antibiotics Vancomycin Lines PIV Past Medical History Degenerative joint disease Left knee infection 2014 with staph epi Right knee infection 2012 with Moraxella Prostate cancer Shingles Past Surgical History Bowel surgery Bilateral total knee arthroplasty, and subsequent multiple surgeries Prostatectomy Allergies: Coded Allergies: Penicillin (Verified Allergy, Severe, 12/01/16) Sulfa (Verified Allergy, Severe, 12/01/16) Objective . Vital Signs Date Time Temp Pulse Resp B/P Pulse Ox O2 Delivery O2 Flow Rate FiO2 12/05/16 07:58 98.1 74 18 128/78 96 12/05/16 00:30 98.5 76 18 128/69 96 12/04/16 21:15 100.2 82 18 132/80 96 12/04/16 16:00 97.5 69 18 131/83 96 12/04/16 11:42 98.0 74 18 130/76 96 12/04/16 12/04/16 12/05/16 15:00 23:00 07:00 Intake Total 1080 ml 240 ml Balance 1080 ml 240 ml Intake Oral 1080 ml 240 ml # Voids 4 1 # Bowel Movements 1 0 . Laboratory Tests Test 12/04/16 04:55 Creatinine 0.83 MG/DL Estimat Glomerular Filtration 89 ML/MIN Rate Microbiology Date/Time Procedure Status Source Growth 12/02/16 11:40 Aerobic Blood Culture - Preliminary Resulted Blood Peripheral NO GROWTH IN 2 DAYS 12/02/16 11:40 Anaerobic Blood Culture - Preliminary Resulted Blood Peripheral NO GROWTH IN 2 DAYS 12/02/16 11:48 Aerobic Blood Culture - Preliminary Resulted Blood Peripheral NO GROWTH IN 2 DAYS 12/02/16 11:48 Anaerobic Blood Culture - Preliminary Resulted Blood Peripheral NO GROWTH IN 2 DAYS Imaging Last Impressions Chest X-Ray 12/02/16 0000 Signed Impressions: Service Date/Time: Friday, December 02, 2016 09:57 - CONCLUSION: Mild streaky opacity remains at the left lung base which represent recurrent pneumonia. Alternatively this could represent scarring and/or atelectasis. Alvaro De La Fuente MD Knee X-Ray 12/01/16 1735 Signed Impressions: Service Date/Time: Thursday, December 01, 2016 18:48 - CONCLUSION: Surgical hardware that appears well placed as described above. Petar Devi MD Physical Exam GENERAL: awake and alert, NAD, up in chair SKIN: Warm and dry, no generalized rash, or ecchymosis HEENT: [place] conjunctivae, no petechia or hemorrhage. No scleral icterus. ENT: Nose without bleeding, or purulent drainage. Moist oral mucosa. Throat without exudate or erythema. NECK: Supple, nontender, no meningeal signs. No nuchal rigidity. No lymphadenopathy. CARDIOVASCULAR: Regular rate and rhythm without murmurs, gallops, or rubs. RESPIRATORY: Clear to auscultation. Breath sounds equal bilaterally. No wheezes , rales, or rhonchi. GASTROINTESTINAL: Abdomen soft, has a large ventral/incisional hernia, very lax abdominal wall, non-tender, nondistended. Bowel sounds are present and normoactive. No guarding. MUSCULOSKELETAL: RLE without clubbing, cyanosis, or edema. No joint effusion , or edema noted. No calf tenderness. LLE: has dressing, dry and intact, knee swollen and has some ecchymoses laterally, no pain in moving the knee joint. No calf tenderness. 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 - C/S from 2016 negative routine, AFB and fungal - C/S now negative so far after 48 hours - has had previous debridement, and multiple course of IV Abx as well as oral Abx Fever, ?related to L knee - no other new infection found - prob atelectasis Dementia Previous Hx carlito TLKA infection Allergy to PCN but tolerates cephalosporins RECOMMENDATION Continue IV vancomycin - likely 6-8 weeks IV, then oral Abx suppression - D/W Dr Gill several days ago PICC today Long discussion with Dr Bhavin Gill 2 days ago - ideally 2 stage procedure treatment; but with his age and underlying dementia, patient still ambulatory and with 2 stage procedure risk of being bedridden quite high with inability to ambulate if patient undergoes 2 stage treatment. Ortho feels that detention IV Abx and chronic suppression would likely be best option for patient. He has tolerated Abx fairly well in the past. - options for suppressive oral Abx limited due to his allergies and the Abx susceptibility of the Staph epi: Keflex 500 BID or Ceftin 250 BID plus Rifampin 300 daily would be options for him - monitor for allergic reaction, GI side effects especially, diarrhea, C diff - give probiotics Abx form filled out OK to D/C once arrangements made for his IV Abx D/W Bruna Maria MD Dec 05, 2016 09:55
--- NOTE | 2016-12-05 09:58 | HHI.FF ---
Infusion Therapy Location of Infusion Therapy: Home [facility] Care IV Infusion Order Patient Information Patient Weight 85 kg Diagnosis: Diagnosis Recurrent infection LTKA Coded Allergies: Penicillin (Verified Allergy, Severe, 12/01/16) Sulfa (Verified Allergy, Severe, 12/01/16) Administer Medication Vancomycin 2 grams IV q 24 hours Stop Treatment: Jan 16, 2017 Additional Information Venous access: PICC Line Additional Instructions [x] Peripheral flush and dressing changes per protocol [x] Implanted port and central plywood layup line back feeder: * Implanted port: 10 ml Normal Saline followed by 5 ml Heparin 100 units/ml Heparin flush after each use and monthly to maintain. [] May leave port accessed during therapy. [] May leave peripheral site accessed for duration of therapy. [x] If patient has SOB or respiratory distress, check oxygen saturation. If less than 90% or clinical signs of respiratory distress, administer oxygen at 2 L/min. via nasal cannula and notify physician. [x] Anaphylaxis/Reaction orders: * Stop infusion. * Keep IV line open with saline flush. * Notify physician. * Monitor vital signs every 15 minutes until symptoms resolve. * Check Oxygen saturation; Oxygen at 2 L/min. via nasal cannula if less than 90% or clinical signs of respiratory distress. * Administer diphenhydramine (Benadryl) 25 mg IV STAT, (unless patient has received as pre-med). May repeat once, if necessary. * Solu-Cortef 250 mg IVP over 30-60 seconds, use 100 mg vials for each dissolution. * Epinephrine (1mg/1 ml) 0.3 mg subcutaneously or IVP now with any signs of respiratory distress. * Check with physician for new additional pre-med orders if patient is re- challenged or re-treated. [x] May remove PICC line when treatment complete, after confirming with Physician. [x] If the patient is admitted to the hospital, the ED, or transferred via [facility] , complete transfer form including medication reconciliation order sheet. Laboratory Tests Weekly Labs: CBC w/diff, Creatinine, CRP, SED Rate, Vancomycin Trough (Labs every Thursday, copy to me and Dr Bhavin Gill) Additional Information Please consult pharm to assist with Vanco dosing, aim for trough 15-20 Bruna Hairston MD Dec 05, 2016 09:58
[2016-12-05 12:08] VITALS: BP 134/70; PULSE 70; RESP 16; TEMP 98.4; O2SAT 97
--- NOTE | 2016-12-05 13:12 | HHI.PR ---
Subjective Remarks Patient seen and examined Stable and afebrile PICC line placed today Objective Vitals Vital Signs Date Time Temp Pulse Resp B/P Pulse Ox O2 Delivery O2 Flow Rate FiO2 12/05/16 12:08 98.4 70 16 134/70 97 12/05/16 07:58 98.1 74 18 128/78 96 12/05/16 00:30 98.5 76 18 128/69 96 12/04/16 21:15 100.2 82 18 132/80 96 12/04/16 16:00 97.5 69 18 131/83 96 I/O 12/04/16 12/04/16 12/04/16 12/05/16 12/05/16 12/05/16 07:00 15:00 23:00 07:00 15:00 23:00 Intake Total 480 ml 1080 ml 240 ml Output Total 1050 ml Balance -570 ml 1080 ml 240 ml Intake Oral 480 ml 1080 ml 240 ml Output Urine Total 1050 ml # Voids 4 1 # Bowel Movements 1 1 0 Result Diagram: 12/02/16 1140 12/04/16 0455 Objective Remarks GENERAL: NAD and sitting in the chair SKIN: Warm and dry. HEAD: Normocephalic. EYES: No scleral icterus. No injection or drainage. NECK: Supple, trachea midline. No JVD or lymphadenopathy. CARDIOVASCULAR: Regular rate and rhythm without murmurs, gallops, or rubs. RESPIRATORY: Breath sounds equal bilaterally. No accessory muscle use. GASTROINTESTINAL: Abdomen soft, non-tender, nondistended. MUSCULOSKELETAL: No cyanosis, or edema. PICC line to left upper arm BACK: Nontender without obvious deformity. No CVA tenderness. A/P Assessment and Plan 81-year-old male with Possible Infected LTKA: Multiple prior surgeries with multiple treatment with different course of IV and by mouth antibiotics and now Patient status post L Knee arthrotomy,complete synevectomy, revisional tibial polyethylene plastic . Appreciate input from orthopedic surgery. Currently on IV vancomycin x 6-8weeks per infectious disease specialist and monitor cultures and NTD. PT consult to treat and eval.PICC line placed today History of hypertension, dementia and other chronic medical conditions: Continue with current treatment DVT prophylaxis: Lovenox Discharge Planning Discharge home per orthopedic surgery and when clear by infectious disease specialist Maximus Orozco MD Dec 05, 2016 13:12
--- NOTE | 2016-12-05 13:14 | RADRPT ---
EXAM DATE/TIME: 12/05/2016 12:46 [facility] COMPARISON: KNEE LEFT LTD (1 OR 2VWS), December 01, 2016, 18:48. CHEST SINGLE AP, December 02, 2016, 9:57. INDICATIONS: Evaluate PICC line placement. MEDICAL HISTORY: None. SURGICAL HISTORY: None. ENCOUNTER: Initial ACUITY: 1 day PAIN SCORE: 0/10 LOCATION: Right chest FINDINGS: There are minimal consolidative changes in the left base. Right lung is clear. PICC line is in good position. Heart and pulmonary vascularity are normal. CONCLUSION: Minimal consolidative changes left base. Akash Frost MD FACR on December 05, 2016 at 13:06 Board Certified Radiologist. This report was verified electronically.
[2016-12-05] MEDS ORDERED: WALKER WHEELS/F1 MIS (14:51)
[2016-12-05] MEDS ORDERED: WARFARIN SOD 5 MG TAB PO SCH (16:00)
[2016-12-06] MEDS ORDERED: PHARMACY ORDERED LAB XX ONE (03:45)
--- NOTE | 2016-12-29 10:07 | HHI.DS ---
Discharge Summary Admission Date Dec 01, 2016 at 13:26 Discharge Date: Dec 05, 2016 Admitting Diagnosis Left painful total knee arthroplasty, suspected infected TKA Diagnosis: (1) Infection of total left knee replacement Diagnosis: Principal (2) S/P total knee arthroplasty Diagnosis: Secondary Procedures left knee revisional total knee arthroplasty with synvectomy and exchange of tibial polyethylene plastic Brief History This is a 81 year old male patient who presents with the following history. Patient has history of left total knee arthroplasty 12/12/10 with subsequent left knee arthrotomy, complete synvectomy revisional tibial polyethelene plastic on 06/02/16. Patient was on IV and then oral antibiotics being managed by Dr. Butler. Dr. Gill did recommend for patient to be on lifetime oral suppression. Patient came off all antibiotics Aug 2016. He had acute onset of left knee pain with swelling on 11/28/16. He was evaluated in the office and left knee was aspirated 60 cc of purulent synovial fluid under sterile conditions. Fluid was sent for cultures and lab work involving CBC, WSR, and CRP was ordered. Patient was scheduled for left revisional total knee arthroplasty for the following Thursday. (seen on Thursday). PE at Discharge Left knee dressing dry and intact N/V intact Neg Chica's;No calf tenderness Hospital Course Patient underwent satisfactory anaesthesia by the department of anaesthesia. He underwent left revisional total knee arthroplasty on the date of admission. Multiple cultures were obtained and sent to lab He was treated with low dose Coumadin night before surgery and will be treated with low dose Coumadin for four weeks post-operatively. He was followed by medical and by infectious disease. PICC line was placed for administration of IV antibiotics. All cultures returned negative. Patient was discharged home on pod #4 with home health nursing and PT. He will remain on IV abx for period of time per I.D. Serial lab studies will be ordered and monitored. Pt Condition on Discharge: Stable Discharge Disposition: Disch w/ Home Health Serv Discharge Instructions Diet Instructions: Coumadin (Warfarin) Diet Activities You Can Perform: Weight Bearing as Tito Luther MD Dec 29, 2016 10:07
== END 2016-12-05 15:59 | disposition home health service (06) | DRG 940 ==
LOC: HSDI 12-01 13:26 → N06A 12-01 19:47
PROVIDERS: ADMIT Orthopaedic Surgery Orthopaedic Surgery of the Spine; ATTEND Orthopaedic Surgery Orthopaedic Surgery of the Spine
PROC: 0SRW0JZ Replacement of Left Knee Joint, Tibial Surface with Synthetic Substitute, Open Approach (ICD-10-PCS; 2016-12-01)
PROC: 0SBD0ZZ Excision of Left Knee Joint, Open Approach (ICD-10-PCS; 2016-12-01)
PROC: 3E1U38X Irrigation of Joints using Irrigating Substance, Percutaneous Approach, Diagnostic (ICD-10-PCS; 2016-12-01)
PROC: 0SPW0JZ Removal of Synthetic Substitute from Left Knee Joint, Tibial Surface, Open Approach (ICD-10-PCS; principal; 2016-12-01 15:36)
PROC: 02HV33Z Insertion of Infusion Device into Superior Vena Cava, Percutaneous Approach (ICD-10-PCS; 2016-12-05)
DX: T84.54XD Infection and inflammatory reaction due to internal left knee prosthesis, subsequent encounter (principal); J98.11 Atelectasis; G30.9 Alzheimer's disease, unspecified; F02.80 Dementia in other diseases classified elsewhere, unspecified severity, without behavioral disturbance, psychotic disturbance, mood disturbance, and anxiety; B99.9 Unspecified infectious disease; I10 Essential (primary) hypertension; R30.0 Dysuria; Y79.2 Prosthetic and other implants, materials and accessory orthopedic devices associated with adverse incidents; Y83.8 Other surgical procedures as the cause of abnormal reaction of the patient, or of later complication, without mention of misadventure at the time of the procedure; R39.11 Hesitancy of micturition; Z96.653 Presence of artificial knee joint, bilateral; Z88.0 Allergy status to penicillin; Z85.46 Personal history of malignant neoplasm of prostate; E78.5 Hyperlipidemia, unspecified; M19.90 Unspecified osteoarthritis, unspecified site
CPT/HCPCS: 36569; 71010; 73560; 76937; 80053; 80202; 81001; 82565; 85014; 85018; 85025; 85610; 85652; 86038; 86140; 86430; 87015; 87040; 87070; 87102; 87116; 87176; 87205; 87206; 88305; 94150; C1776; J0690; J1170; J1580; J2270; J2405; J2710; J3010; J3370; J7050; J7120; L1830

== ENCOUNTER → 2017-04-30 | Outpatient (CLI) | payer OTHER ==
[~2017-04-30] MED LIST changes: +ASCOPOW PO; +CO Q200C PO; -DONE10TA14 PO; +DONE10TA7 PO; +LISI30TA4 PO; -LISI30TA44 PO; +MEMA1TAB2 PO; +PYRI100T PO; -RIFA150 PO; +VITA100021 SL; +VITA200013 PO; +WALKER WHEELS/F1 MIS; -WARF5TAB PO; -Z.0.COMMODE-3:1; -Z.0.CPM; -Z.0.WALKERFRONT; -ZOCO10TA PO; -ZOCO20TA PO
--- NOTE | 2017-04-30 19:56 | MG ---
cc: ANIKA WOODRUFF M.D. Lab No: [id number] Date: Age: 81 Sex: M Race: HISTORY: 81-year-old man with some confusion, left knee infection, pancreatitis. MEDICATIONS: 1. Rifampin. 2. Keflex. 3. Namenda. 4. Aricept. DESCRIPTION OF THE RECORDING: A 10 Hz 60 microvolt symmetric posterior rhythm is seen. There is some mild slowing over the left temporal lobe in the theta range compared to the right at times down to about 4 Hz even. No epileptiform or seizure activity is noted. Photic stimulation was performed without significant posterior driving. The patient appears to fall asleep towards the end of the recording. IMPRESSION: Some mild to moderate left temporal slowing but no seizure activity. A left temporal lobe lesion should be ruled out. MD MELITON Leo/BENJAMIN /6:49 PM /7:57 PM
== END ==
LOC: HEEG 09:33
PROVIDERS: ATTEND Psychiatry & Neurology Neurology
DX: F03.90 Unspecified dementia, unspecified severity, without behavioral disturbance, psychotic disturbance, mood disturbance, and anxiety (principal)
CPT/HCPCS: 95819

== ENCOUNTER 2017-06-18 07:20 | Day surgery (SDC) | payer OTHER ==
[~2017-06-18] VITALS: Ht 180.3 cm; Wt 84.1 kg
[2017-06-18 07:50] VITALS: BP 161/96; PULSE 69; RESP 18; TEMP 97.6; O2SAT 100
[2017-06-18] MEDS ORDERED: RIFA300C2 PO (07:58)
[2017-06-18] MEDS ORDERED: CEPH-460 PO (07:58)
[2017-06-18] MEDS ORDERED: MIRA3350 PO (07:58)
[2017-06-18] MEDS ORDERED: SACC1CAP3 PO (07:58)
[2017-06-18] MEDS ORDERED: [UNRECOGNIZED DRUG - OTHER] PO (07:58)
[2017-06-18] MEDS ORDERED: SODIUM CHLOR 0.9% 1000 ML INJ 1,000 ML IV SCH (08:00)
[2017-06-18 08:10] VITALS: BP 161/96; PULSE 69; RESP 18; TEMP 97.6; O2SAT 100
[2017-06-18 08:36] LABS: APTT (PATIENT) 24.9 SEC (24.3-30.1); PROTHROMBIN TIME - PATIENT 10.9 SEC (9.8-11.6)
[2017-06-18 08:42] LABS: BICARBONATE 27.1 MEQ/L (21.0-32.0); POTASSIUM 4.1 MEQ/L (3.5-5.1)
[2017-06-18 08:47] LABS: AUTOMATED NEUTROPHIL # 3.6 TH/MM3 (1.8-7.7); BASOPHIL % 0.2 % (0.0-2.0); EOSINOPHIL # 0.2 TH/MM3 (0-0.4); EOSINOPHIL % 3.2 % (0.0-4.0); HEMATOCRIT 40.9 % (39.0-51.0); HEMO FLAGS DIFF FINAL; LYMPH % 19.8 % (9.0-44.0); LYMPHOCYTE # 1.1 TH/MM3 (1.0-4.8); MEAN CELL VOLUME 90.8 FL (80.0-100.0); MEAN CORPUSCULAR HEMOGLOBIN 30.9 PG (27.0-34.0); MONO % 13.3 % (0.0-8.0); NEUT % 63.5 % (16.0-70.0); PLATELET COUNT 141 TH/MM3 (150-450); WHITE BLOOD COUNT 5.6 TH/MM3 (4.0-11.0)
[2017-06-18 09:55] VITALS: BP 151/90; PULSE 66; RESP 18; TEMP 98.6; O2SAT 97
[2017-06-18 11:28] LABS: SUPERNATE COLOR TUBE #1 CLEAR (CLEAR); VOLUME TUBE # 1 1.5 ML
[2017-06-18 11:29] LABS: CSF LYMPHOCYTES 100 %; CSF NEUTROPHILS 0 %; GROSS BLOOD TUBE #1 TRACE (0); GROSS BLOOD TUBE #2 TRACE (0); GROSS BLOOD TUBE #3 TRACE (0); GROSS BLOOD TUBE #4 TRACE (0); SUPERNATE COLOR TUBE #2 CLEAR (CLEAR); SUPERNATE COLOR TUBE #3 CLEAR (CLEAR); SUPERNATE COLOR TUBE #4 CLEAR (CLEAR); WBC TUBE #4 77 /MM3 (0-10)
--- NOTE | 2017-06-18 12:12 | RADRPT ---
EXAM DATE/TIME: 06/18/2017 08:50 [facility] COMPARISON: No previous studies available for comparison. INDICATIONS : Patient presents with headaches and memory loss in need of lumbar puncture to rule out encephalitis. MEDICAL HISTORY : ICH Prostate cancer Dementia HTN Arthritis Pancreatitis SURGICAL HISTORY : Twisted bowel Bilat knees Bilat cataracts Hernia repair Appy Choley Tonsillectomy ACL repair Vasectomy Right ureteral stent Prostatectomy ENCOUNTER: Initial ACUITY: 4-6 months PAIN SCORE: 4/10 LOCATION: n/a LUMBAR PUNCTURE TIME: 09:38 hours FLUORO TIME: 1.0 minutes IMAGE SERIES: 0 ACCESS LEVEL: L3-4 FLUID: 10 cc of clear CSF was collected and sent to the laboratory for analysis. PROCEDURE : 1. Fluoroscopic guided lumbar puncture. The risks, benefits and alternatives to the procedure were explained and verbal and written consent w as obtained. The site was prepped in sterile fashion. Full sterile technique was used, including ca p, mask, sterile gloves and gown and a large sterile sheet. Hand hygiene and 2% chlorhexidine and/or betadine/alcohol prep was utilized per protocol for cutaneous antisepsis. The skin and subcutaneous tissues were infiltrated with local anesthetic solution. With fluoroscopic guidance the lumbar thecal sac was punctured at the level above. The fluid describ ed above was removed without difficulty. The patient tolerated the procedure well and there were no complications. CONCLUSION: Uncomplicated fluoroscopically guided lumbar puncture. Petar Knowles MD on June 18, 2017 at 12:10 Board Certified Radiologist. This report was verified electronically.
[2017-06-19 08:47] LABS: HSV 1,PCR Negative (Negative)
[2017-06-19 12:29] LABS: CF EBV DNA PCR RESULT Negative (Negative); CF EBV SPEC SOURCE CSF
[2017-06-19 17:10] LABS: OLIGOCLONAL BANDING CSF 0 bands; OLIGOCLONAL BANDING INTERPRET 0 bands (<4); OLIGOCLONAL BANDING SERUM 0 bands
[2017-06-20 01:13] LABS: ENTEROVIRUS PCR RESULT Negative (Negative); ENTEROVIRUS PCR SPEC SOURCE CSF
[2017-06-20 23:53] LABS: CF WEST NILE IGG LESS THAN 1.30 (<1.30); CF WEST NILE IGM LESS THAN 0.90 (<0.90)
[2017-06-21 23:53] LABS: VZV PCR RESULT <500 (<500 copies)
[2017-06-23 19:51] LABS: CALIFORNIA ENCEPH AB IGG <1:4 (<1:4); CALIFORNIA ENCEPH AB IGM <1:4 (<1:4); EAST EQUINE ENCEPH AB IGG <1:4 (<1:4); EAST EQUINE ENCEPH AB IGM <1:4 (<1:4); ST LOUIS ENCEPH AB IGG <1:4 (<1:4); ST LOUIS ENCEPH AB IGM <1:4 (<1:4)
== END 2017-06-18 12:00 | disposition home or self-care (01) ==
LOC: HROP 07:20 → HRIP 07:30 → HROP 12:00
PROVIDERS: ATTEND Psychiatry & Neurology Neurology
DX: R51 Headache (principal); R41.3 Other amnesia; I10 Essential (primary) hypertension; F03.90 Unspecified dementia, unspecified severity, without behavioral disturbance, psychotic disturbance, mood disturbance, and anxiety; K85.90 Acute pancreatitis without necrosis or infection, unspecified
CPT/HCPCS: 62270; 77003; 80048; 82945; 83916; 84157; 85025; 85610; 85730; 86651; 86652; 86653; 86654; 86788; 86789; 87497; 87498; 87529; 87798; 87799; 88112; 89051; J7030

== ENCOUNTER 2017-06-19 10:44 | Inpatient (IN) | payer OTHER, MEDICARE ==
[~2017-06-19] VITALS: Ht 180.3 cm; Wt 84.0 kg
[2017-06-19] VITALS: BP 133/77; PULSE 69; RESP 20; TEMP 97.7; O2SAT 97
[~2017-06-19 10:44] MED LIST changes: +CEPH-460 PO; +MIRA3350 PO; +RIFA300C2 PO; +SACC1CAP3 PO; +[UNRECOGNIZED DRUG - OTHER] PO
[2017-06-19 10:47] VITALS: BP 179/93; PULSE 72; RESP 20; TEMP 98.4; O2SAT 97
[2017-06-19] MEDS ORDERED: SODIUM CHLORIDE 0.9% IV ONE (11:30)
[2017-06-19] MEDS ORDERED: SODIUM CHLORIDE 0.9% FLUSH 10 ML FLUSH IV FLUSH PRN ×2 (11:30→13:30)
[2017-06-19] MEDS ORDERED: ACYCLOVIR IV ONE (11:30)
--- NOTE | 2017-06-19 11:33 | PD ---
HPI Chief Complaint: Neuro Symptoms/ Deficits Time Seen by Provider: 11:24 Travel History International Travel<30 days: No Contact w/Intl Traveler<30days: No Traveled to known affect area: No History of Present Illness HPI Patient comes in at the advice of his neurologist Dr. Wilson for treatment of herpes encephalitis. Patient reports he had a lumbar puncture done yesterday came back suspicious for herpes encephalitis. Patient reports over the past several months patient has had a decline in his cognitive impairment, trouble with speech, and being more confused at times. Patient has been evaluated since outpatient for this by his neurologist having MRIs as well as LP done. Patient's reports Dr. Wilson contact them today after getting some other results from the LP. Patient denies any complaints. Denies any headache, chest pain, fevers, nausea, vomiting, dizziness, or shortness of breath. Denies anything making his symptoms better or worse. PFSH Past Medical History Arthritis: Yes (HANDS,FINGERS) Cancer: Yes (PROSTATE) Cardiovascular Problems: No Chemotherapy: No Diabetes: No Diminished Hearing: Yes Endocrine: No Gastrointestinal Disorders: Yes Genitourinary: No Hepatitis: No Hiatal Hernia: No Hypertension: Yes Immune Disorder: No Musculoskeletal: Yes (ARTHRITIS, osteopenia) Neurologic: Yes (cognitive mild impairment, dementia , stroke) Psychiatric: No Reproductive: No Respiratory: No Immunizations Current: Yes Radiation Therapy: No Thyroid Disease: No Past Surgical History Abdominal Surgery: Yes (CHOLECYSTECTOMY, YORDY. ING. HERNIA REP., pancreatitis with cyst) AICD: No Appendectomy: Yes (194) Body Medical Devices: right ureteral stent, upper & lower dental implants Cardiac Surgery: No Cholecystectomy: Yes (2007 AND BILE DUCT) Eye Surgery: Yes ( BILATERAL CATARACT EXTRACT) Genitourinary Surgery: Yes (VASECTOMY,PROSTATECTOMY, right ureteral stent placement) Joint Replacement: Yes (BILATERAL KNEES ) Oral Surgery: Yes ( DENTAL IMPLANTS; TONSILLECTOMY) Pacemaker: No Thoracic Surgery: No Tonsillectomy: Yes (1944) Social History Alcohol Use: Yes (NIGHTLY,3 BOURBON AND 7 UP ) Tobacco Use: No Substance Use: No Allergies-Medications (Allergen,Severity, Reaction): Coded Allergies: Sulfa (Sulfonamide Antibiotics) (Unverified Allergy, Severe, 06/18/17) penicillin G (Unverified Allergy, Severe, 06/18/17) Reported Meds & Prescriptions Reported Meds & Active Scripts Active Walker with Front Wheels (Device) 1 Mis Mis 1 Ea .ROUTE DIRECTED Reported Probiotic (Saccharomyces Boulardii) 250 Mg Cap 250 Mg PO BID [Magtein] 1 Cap PO DAILY Miralax Powder (Polyethylene Glycol 3350 Powder) 17 Gm Powd 17 Gm PO DAILY Mix and dissolve one measuring cap-ful (17 grams) in water or juice. Keflex (Cephalexin) 500 Mg Cap 500 Mg PO Q12H Rifampin 300 Mg Cap 300 Mg PO BID Vitamin B-12 (Cyanocobalamin) 1,000 Mcg Subl 1,000 Mcg SL DAILY Vitamin B-6 (Pyridoxine HCl) 100 Mg Tab 100 Mg PO DAILY Vitamin C Powder (Ascorbic Acid) 1 Pow Pow 1 Pack PO BID Vitamin D (Cholecalciferol) 2,000 Unit Cap 1 Cap PO HS Co Q-10 (Coenzyme Q10 (Ubidecarenone)) 200 Mg Cap 1 Cap PO DAILY Lisinopril 30 Mg Tab 30 Mg PO DAILY Memantine 10 Mg Tab 10 Mg PO BID Metoprolol Tartrate 50 Mg Tab 50 Mg PO DAILY Donepezil 10 Mg Tab 10 Mg PO DAILY Review of Systems Except as stated in HPI: all other systems reviewed are Neg Physical Exam Narrative GENERAL: Well-developed, well nourished, in no acute distress, and non-ill appearing. SKIN: Focused skin assessment warm and dry. HEAD: Atraumatic. Normocephalic. EYES: Pupils equal and round. EOMI. No scleral icterus. No injection or drainage. ENT: No nasal bleeding or discharge. Mucous membranes pink and moist. NECK: Trachea midline. Supple. No nuclear rigidity. CARDIOVASCULAR: Regular rate and rhythm. No murmur appreciated. RESPIRATORY: No accessory muscle use. No respiratory distress. Clear to auscultation. Breath sounds equal bilaterally. MUSCULOSKELETAL: No obvious deformities. No clubbing. No cyanosis. No edema. Full range of motion. NEUROLOGICAL: Awake and alert. No obvious cranial nerve deficits. Motor grossly within normal limits. Normal speech. PSYCHIATRIC: Appropriate mood and affect; insight and judgment normal. Data Data Last Documented VS Vital Signs Date Time Temp Pulse Resp B/P (MAP) Pulse Ox O2 Delivery O2 Flow Rate FiO2 06/19/17 12:11 98.0 61 20 158/84 (108) 100 Room Air Orders Orders Basic Metabolic Panel (Bmp) (06/19/17 11:24) Complete Blood Count With Diff (06/19/17 11:24) Prothrombin Time / Inr (Pt) (06/19/17 11:24) Act Partial Throm Time (Ptt) (06/19/17 11:24) Iv Access Insert/Monitor (06/19/17 11:24) Ecg Monitoring (06/19/17 11:24) Oximetry (06/19/17 11:24) Sodium Chloride 0.9% Flush (Ns Flush) (06/19/17 11:30) Acyclovir Inj (Zovirax Inj) (06/19/17 11:30) Eeg Study (06/19/17 ) Consult Neurology (06/19/17 ) Consult Infectious Disease (06/19/17 ) (Hub Use Only)Inp Phy Cons/Ref (06/19/17 ) (Hub Use Only)Inp Phy Cons/Ref (06/19/17 ) Admit Order (Ed Use Only) (06/19/17 13:07) Labs Laboratory Tests Test 06/19/17 12:00 White Blood Count 5.4 TH/MM3 Red Blood Count 4.34 MIL/MM3 Hemoglobin 13.5 GM/DL Hematocrit 38.9 % Mean Corpuscular Volume 89.7 FL Mean Corpuscular Hemoglobin 31.2 PG Mean Corpuscular Hemoglobin Concent 34.8 % Red Cell Distribution Width 15.1 % Platelet Count 124 TH/MM3 Mean Platelet Volume 7.4 FL Neutrophils (%) (Auto) 62.1 % Lymphocytes (%) (Auto) 22.6 % Monocytes (%) (Auto) 12.3 % Eosinophils (%) (Auto) 2.6 % Basophils (%) (Auto) 0.4 % Neutrophils # (Auto) 3.4 TH/MM3 Lymphocytes # (Auto) 1.2 TH/MM3 Monocytes # (Auto) 0.7 TH/MM3 Eosinophils # (Auto) 0.1 TH/MM3 Basophils # (Auto) 0.0 TH/MM3 CBC Comment DIFF FINAL Differential Comment Prothrombin Time 10.9 SEC Prothromb Time International Ratio 1.0 RATIO Activated Partial Thromboplast Time 24.6 SEC Blood Urea Nitrogen 9 MG/DL Creatinine 0.85 MG/DL Random Glucose 85 MG/DL Calcium Level 8.5 MG/DL Sodium Level 134 MEQ/L Potassium Level 3.9 MEQ/L Chloride Level 99 MEQ/L Carbon Dioxide Level 23.6 MEQ/L Anion Gap 11 MEQ/L Estimat Glomerular Filtration Rate 87 ML/MIN MDM Medical Decision Making Medical Screen Exam Complete: Yes Emergency Medical Condition: Yes Differential Diagnosis Herpes encephalitis, dementia, likely abnormality, sepsis, other Narrative Course Patient was seen and examined. IV was established and patient was placed on continuous cardiac monitoring. Initial laboratory studies were ordered along with IV acyclovir. Spoke with patient's neurologist, business applications manager neurology, infectious disease, and hospitalist. Discussed all findings and plan of care with patient and his . Patient is agreeable for admission. All questions were answered. Patient remained stable throughout ED course. Physician Communication Physician Communication [id number] Wilson patient's neurologist states that the lumbar puncture or MRI are suspicious for herpes encephalitis. States PCR currently pending. Recommends treating patient with acyclovir asked that the in house neurologist follow the patient. [address] Reyes, neurology business applications manager who recommends getting infectious disease consult and EEG, and will consult. [address] Montero, infectious disease, who is agreeable to consult on the patient. [address] Velazco, who is agreeable to admit the patient. Diagnosis Primary Impression: Herpes encephalitis Admitting Information Admitting Physician Requests: Admit Condition: Stable Janes Martinez Jun 19, 2017 11:33
[2017-06-19 12:11] VITALS: BP 158/84; PULSE 61; RESP 20; TEMP 98; O2SAT 100
[2017-06-19 12:20] LABS: AUTOMATED NEUTROPHIL # 3.4 TH/MM3 (1.8-7.7); BASOPHIL % 0.4 % (0.0-2.0); EOSINOPHIL # 0.1 TH/MM3 (0-0.4); EOSINOPHIL % 2.6 % (0.0-4.0); HEMATOCRIT 38.9 % (39.0-51.0); HEMO FLAGS DIFF FINAL; LYMPH % 22.6 % (9.0-44.0); LYMPHOCYTE # 1.2 TH/MM3 (1.0-4.8); MEAN CELL VOLUME 89.7 FL (80.0-100.0); MEAN CORPUSCULAR HEMOGLOBIN 31.2 PG (27.0-34.0); MEAN CORPUSCULAR HGB CONC 34.8 % (32.0-36.0); MONO % 12.3 % (0.0-8.0); NEUT % 62.1 % (16.0-70.0); PLATELET COUNT 124 TH/MM3 (150-450); RED BLOOD COUNT 4.34 MIL/MM3 (4.50-5.90); RED CELL DISTRIBUTION WIDTH 15.1 % (11.6-17.2); WHITE BLOOD COUNT 5.4 TH/MM3 (4.0-11.0)
[2017-06-19 12:31] LABS: APTT (PATIENT) 24.6 SEC (24.3-30.1); PROTHROMBIN TIME - PATIENT 10.9 SEC (9.8-11.6)
[2017-06-19 12:36] LABS: BICARBONATE 23.6 MEQ/L (21.0-32.0); POTASSIUM 3.9 MEQ/L (3.5-5.1)
--- NOTE | 2017-06-19 13:24 | HHI.HP ---
[facility] Service [place] [facility] Primary Care Physician Anupam Penn MD Admission Diagnosis Diagnoses: (1) Altered mental status Diagnosis: Principal (2) Alzheimer's dementia Diagnosis: Secondary (3) Hypertension Diagnosis: Secondary (4) Herpes encephalitis Diagnosis: Principal (5) Confusion Diagnosis: Principal Chief Complaint: Neurological symptoms/deficits Travel History International Travel<30 Days: No Contact w/Intl Traveler <30 Da: No Traveled to Known Affected Are: No History of Present Illness Patient is a 81-year-old gentleman. Patient comes in at the advice of his neurologist Dr. Wilson for treatment of herpes encephalitis. Patient reports he had a lumbar puncture done yesterday came back suspicious for herpes encephalitis. Patient reports over the past several months patient has had a decline in his cognitive impairment, trouble with speech, and being more confused at times. Patient has been evaluated since outpatient for this by his neurologist having MRIs as well as LP done. Patient's reports Dr. Wilson contact them today after getting some other results from the LP. Patient denies any complaints. Denies any headache, chest pain, fevers, nausea, vomiting, dizziness, or shortness of breath. Denies anything making his symptoms better or worse. Review of Systems Constitutional: COMPLAINS OF: Fatigue, DENIES: Diaphoretic episodes, Fever, Weight gain, Weight loss, Chills, Dizziness, Change in appetite Endocrine: DENIES: Heat/cold intolerance, Polydipsia, Polyuria, Polyphagia Eyes: DENIES: Blurred vision, Diplopia, Eye inflammation, Eye pain, Vision loss , Photosensitivity Ears, nose, mouth, throat: DENIES: Tinnitus, Hearing loss, Vertigo, Nasal discharge, Oral lesions, Throat pain, Hoarseness, Ear Pain, Running Nose Respiratory: DENIES: Apneas, Cough, Snoring, Wheezing, Hemoptysis, Shortness of breath Cardiovascular: DENIES: Chest pain, Palpitations, Syncope, Dyspnea on Exertion , PND, Lower Extremity Edema Gastrointestinal: DENIES: Abdominal pain, Black stools, Bloody stools Genitourinary: DENIES: Sexual dysfunction, Urinary frequency Musculoskeletal: DENIES: Joint pain, Muscle aches, Stiffness Integumentary: DENIES: Abnormal pigmentation, Nail changes Hematologic/lymphatic: DENIES: Bruising, Lymphadenopathy Immunologic/allergic: DENIES: Eczema, Urticaria Neurologic: COMPLAINS OF: Localized weakness, Speech Problems Psychiatric: COMPLAINS OF: Anxiety, Confusion, Mood changes, DENIES: Depression , Hallucinations, Suicidal Ideation, Homicidal Ideation, Delusions Past Family Social History Past Medical History Osteoarthritis of hands and fingers. History of prostate cancer Heart appearing GERD Hypertension Cognitive impairment Dementia Stroke suspected herpes encephalitis Past Surgical History Cholecystectomy Bilateral inguinal hernia repair Pancreatitis with cyst Right ureteral stents Upper and lower dental implants Bilateral cataract extraction Vasectomy Prostatectomy Right ureteral stent placement Bilateral total knees Tonsillectomy History of pancreatitis and pseudocyst Reported Medications Reported Meds & Active Scripts Active Walker with Front Wheels (Device) 1 Mis Mis 1 Ea .ROUTE DIRECTED Reported Probiotic (Saccharomyces Boulardii) 250 Mg Cap 250 Mg PO BID [Magtein] 1 Cap PO DAILY Miralax Powder (Polyethylene Glycol 3350 Powder) 17 Gm Powd 17 Gm PO DAILY Mix and dissolve one measuring cap-ful (17 grams) in water or juice. Keflex (Cephalexin) 500 Mg Cap 500 Mg PO Q12H Rifampin 300 Mg Cap 300 Mg PO BID Vitamin B-12 (Cyanocobalamin) 1,000 Mcg Subl 1,000 Mcg SL DAILY Vitamin B-6 (Pyridoxine HCl) 100 Mg Tab 100 Mg PO DAILY Vitamin C Powder (Ascorbic Acid) 1 Pow Pow 1 Pack PO BID Vitamin D (Cholecalciferol) 2,000 Unit Cap 1 Cap PO HS Co Q-10 (Coenzyme Q10 (Ubidecarenone)) 200 Mg Cap 1 Cap PO DAILY Lisinopril 30 Mg Tab 30 Mg PO DAILY Memantine 10 Mg Tab 10 Mg PO BID Metoprolol Tartrate 50 Mg Tab 50 Mg PO DAILY Donepezil 10 Mg Tab 10 Mg PO DAILY Allergies: Coded Allergies: Sulfa (Sulfonamide Antibiotics) (Unverified Allergy, Severe, 06/18/17) penicillin G (Unverified Allergy, Severe, 06/18/17) Active Ordered Medications Current Medications Sodium Chloride (NS Flush) 2 ml UNSCH PRN IV FLUSH FLUSH AFTER USING IV ACCESS ; Start 06/19/17 at 11:30 Acyclovir Sodium 840 mg/Sodium Chloride 150 ml @ 150 mls/hr ONCE ONCE IV Last administered on 06/19/17t 12:46; Start 06/19/17 at 11:30; Stop 06/19/17 at 12: 29; Status DC Family History Hypertension Social History 3 [place] and 7-Up daily denies any tobacco or illicits Physical Exam Vital Signs Vital Signs Date Time Temp Pulse Resp B/P (MAP) Pulse Ox O2 Delivery O2 Flow Rate FiO2 06/19/17 12:11 98.0 61 20 158/84 (108) 100 Room Air 06/19/17 10:47 98.4 72 20 179/93 (121) 97 Room Air Physical Exam GENERAL: This is a well-nourished, well-developed patient, in no apparent distress. SKIN: No rashes, ecchymoses or lesions. Cool and dry. HEAD: Atraumatic. Normocephalic. No temporal or scalp tenderness. EYES: Pupils equal round and reactive. Extraocular motions intact. No scleral icterus. No injection or drainage. ENT: Nose without bleeding, purulent drainage or septal hematoma. Throat without erythema, tonsillar hypertrophy or exudate. Uvula midline. Airway patent. Tongue is midline NECK: Trachea midline. No JVD or lymphadenopathy. Supple, nontender, no meningeal signs. CARDIOVASCULAR: Regular rate and rhythm without murmurs, gallops, or rubs. S1 and S2 no S3 or S4 no thrill RESPIRATORY: Clear to auscultation. Breath sounds equal bilaterally. No wheezes , rales, or rhonchi. GASTROINTESTINAL: Abdomen soft, non-tender, nondistended. No hepato-splenomegaly , or palpable masses. No guarding. MUSCULOSKELETAL: Extremities without clubbing, cyanosis, or edema. No joint tenderness, effusion, or edema noted. No calf tenderness. Negative Homans sign bilaterally. NEUROLOGICAL: Awake and alert. Cranial nerves II through XII intact. Motor and sensory grossly within normal limits. Five out of 5 muscle strength in all muscle groups. Normal speech. Insight and judgment are good mood and behavior is somewhat appropriate Laboratory Laboratory Tests Test 06/19/17 12:00 White Blood Count 5.4 Red Blood Count 4.34 Hemoglobin 13.5 Hematocrit 38.9 Mean Corpuscular Volume 89.7 Mean Corpuscular Hemoglobin 31.2 Mean Corpuscular Hemoglobin Concent 34.8 Red Cell Distribution Width 15.1 Platelet Count 124 Mean Platelet Volume 7.4 Neutrophils (%) (Auto) 62.1 Lymphocytes (%) (Auto) 22.6 Monocytes (%) (Auto) 12.3 Eosinophils (%) (Auto) 2.6 Basophils (%) (Auto) 0.4 Neutrophils # (Auto) 3.4 Lymphocytes # (Auto) 1.2 Monocytes # (Auto) 0.7 Eosinophils # (Auto) 0.1 Basophils # (Auto) 0.0 CBC Comment DIFF FINAL Differential Comment Prothrombin Time 10.9 Prothromb Time International Ratio 1.0 Activated Partial Thromboplast Time 24.6 Blood Urea Nitrogen 9 Creatinine 0.85 Random Glucose 85 Calcium Level 8.5 Sodium Level 134 Potassium Level 3.9 Chloride Level 99 Carbon Dioxide Level 23.6 Anion Gap 11 Estimat Glomerular Filtration Rate 87 Result Diagram: 06/19/17 1200 06/19/17 1200 Germanrinlevi VTE Risk Assessment Caprini VTE Risk Assessment: Mod/High Risk (score >= 2) Caprini Risk Assessment Model Point Value = 1 Point Value = 2 Point Value = 3 Point Value = 5 Age 41-60 Minor surgery BMI > 25 kg/m2 Swollen legs Varicose veins or History of unexplained or recurrent spontaneous Oral contraceptives or hormone replacement Sepsis (< 1 month) Serious lung disease, including pneumonia (< 1 month) Abnormal pulmonary function Acute myocardial infarction Congestive heart failure (< 1 month) History of inflammatory bowel disease Medical patient at bed rest Age 61-74 Arthroscopic surgery Major open surgery (> 45 min) Laparoscopic surgery (> 45 min) Malignancy Confined to bed (> 72 hours) Immobilizing plaster cast Central venous access Age >= 75 History of VTE Family history of VTE Factor V Leiden Prothrombin [id number] Lupus anticoagulant Anticardiolipin antibodies Elevated serum homocysteine Heparin-induced thrombocytopenia Other congenital or acquired thrombophilia Stroke (< 1 month) Elective arthroplasty Hip, pelvis, or leg fracture Acute spinal cord injury (< 1 month) Prophylaxis Regimen Total Risk Factor Score Risk Level Prophylaxis Regimen 0-1 Low Early ambulation 2 Moderate Order ONE of the following: *Sequential Compression Device (SCD) *Heparin 5000 units SQ BID 3-4 Higher Order ONE of the following medications: *Heparin 5000 units SQ TID *Enoxaparin/Lovenox 40 mg SQ daily (WT < 150 kg, CrCl > 30 mL/min) *Enoxaparin/Lovenox 30 mg SQ daily (WT < 150 kg, CrCl > 10-29 mL/min) *Enoxaparin/Lovenox 30 mg SQ BID (WT < 150 kg, CrCl > 30 mL/min) AND/OR *Sequential Compression Device (SCD) 5 or more Highest Order ONE of the following medications: *Heparin 5000 units SQ TID (Preferred with Epidurals) *Enoxaparin/Lovenox 40 mg SQ daily (WT < 150 kg, CrCl > 30 mL/min) *Enoxaparin/Lovenox 30 mg SQ daily (WT < 150 kg, CrCl > 10-29 mL/min) *Enoxaparin/Lovenox 30 mg SQ BID (WT < 150 kg, CrCl > 30 mL/min) AND *Sequential Compression Device (SCD) Assessment and Plan Problem List: (1) Alzheimer's dementia ICD Code: G30.9 - Alzheimer's disease, unspecified (2) Confusion ICD Code: R41.0 - Disorientation, unspecified (3) Hypertension ICD Code: I10 - Essential (primary) hypertension (4) Herpes encephalitis ICD Code: B00.4 - Herpesviral encephalitis (5) HTN (hypertension) ICD Code: I10 - HTN (hypertension) Status: Chronic (6) Altered mental status ICD Code: R41.82 - Altered mental status, unspecified Assessment and Plan Patient is a 81-year-old male. He underwent outpatient MRI and outpatient lumbar puncture directed by Dr. Wilson.. Patient had these studies done. And was noted to have abnormal. Therefore was directed to come to the emergency department Will consult neurology marketing and communications officer as well as infectious disease on-call It was felt that patient had herpes encephalitis will keep in isolation. We'll treat him with acyclovir will consult infectious disease and neurology We'll get EEG Hypertension continue home medications Alzheimer's dementia continue home medications Physical therapy and occupational therapy to eval and treat as well as speech therapy Code Status Full code Discussed Condition With Discussed with ER as well as RN and patient and Physician Certification 2 Midnight Certification Type: Admission for Inpatient Services Order for Inpatient Services The services are ordered in accordance with Medicare regulations or non- Medicare payer requirements, as applicable. In the case of services not specified as inpatient-only, they are appropriately provided as inpatient services in accordance with the 2-midnight benchmark. Estimated LOS (days): 4 4 days is the estimated time the patient will need to remain in the hospital, assuming treatment plan goals are met and no additional complications. Post-Hospital Plan: Not yet determined Akash Velazco DO Jun 19, 2017 13:23
[2017-06-19] MEDS ORDERED: NALOXONE HCL 0.4 MG/ML AMP IV PRN (13:30)
[2017-06-19] MEDS ORDERED: oxyCODONE/ACETAMINOPHEN 10 MG/325 MG TAB PO PRN (13:30)
[2017-06-19] MEDS ORDERED: MORPHINE SULFATE 4 MG/ML INJ IV PRN ×2 (13:30)
[2017-06-19] MEDS ORDERED: LACTULOSE SYRUP 20 GM/30 ML CUP PO PRN (13:30)
[2017-06-19] MEDS ORDERED: BISACODYL 10 MG SUPP RECTAL PRN (13:30)
[2017-06-19] MEDS ORDERED: MAGNESIUM HYDROXIDE SUSP 30 ML CUP PO PRN (13:30)
[2017-06-19] MEDS ORDERED: ONDANSETRON HCL 4 MG/2 ML VIAL IVP PRN (13:30)
[2017-06-19] MEDS ORDERED: ACETAMINOPHEN 325 MG TAB PO PRN ×2 (13:30)
[2017-06-19] MEDS ORDERED: PROCHLORPERAZINE 25 MG SUPP RECTAL PRN (13:30)
[2017-06-19] MEDS ORDERED: SENNOSIDES 8.6 MG TAB PO PRN (13:30)
[2017-06-19] MEDS ORDERED: oxyCODONE/ACETAMINOPHEN 5 MG/325 MG TAB PO PRN (13:30)
[2017-06-19] MEDS: SODIUM CHLOR 0.9% 1000 ML INJ 1,000 ML IV SCH (17:00)
[2017-06-19] MEDS ORDERED: GADODIAMIDE PF 287 MG/ML 5 ML VIAL (for RAD MRI) IVCONTRAST ONE (17:51)
--- NOTE | 2017-06-19 19:05 | RADRPT ---
EXAM DATE/TIME: 06/19/2017 17:24 [facility] COMPARISON: No previous studies available for comparison. INDICATIONS : Encephalitis. CONTRAST: 17 cc Omniscan (gadodiamide) IV MEDICAL HISTORY : Carcinoma, prostate. Hypertension. Stroke Dementia. SURGICAL HISTORY : Cholecystectomy. Prostatectomy. Tonsillectomy. Bilateral TKA. Vasectomy. ENCOUNTER: Subsequent ACUITY: 1 day PAIN SCORE: 3/10 LOCATION: cranial TECHNIQUE: Multiplanar, multisequence MRI of the brain was performed both prior to and following the administrat ion of paramagnetic contrast. FINDINGS: CEREBRUM: There is edema seen throughout the temporal lobes bilaterally and extending to the left occipital and left parietal lobes. The edema appears worse on the left side. There is effacement of the sulci in t he regions with edema. On the SWI images, there are numerous punctate areas of low signal seen throug hout the cerebral and cerebellar hemispheres which can be seen with prior areas of hemorrhage. No def inite areas of nelson hemorrhage are seen on this examination. Petechial hemorrhage could have this ap pearance. The ventricles are normal for age. No evidence of midline shift, focal mass lesion, hemorr elaine or acute infarction. No extraaxial fluid collections are seen. The pituitary gland and suprase llar cistern are normal in configuration. WHITE MATTER: In addition to the edema within the temporal lobes and left occipital and parietal lobes, there is in creased signal within the periventricular white matter likely related to underlying small vessel isch emic change. POSTERIOR FOSSA: The cerebellum and brainstem are intact. The 4th ventricle is midline. The cerebellopontine angle is unremarkable. The cerebellar tonsils are normal in position. DIFFUSION IMAGING: No focal areas of restricted diffusion are seen. No evidence of acute infarction. EXTRACRANIAL: The visualized portions of the orbits and paranasal sinuses are unremarkable. POST-CONTRAST: No abnormal areas of parenchymal or dural enhancement. No evidence of blood-brain barrier breakdown. CONCLUSION: Very prominent edema seen in the temporal lobes bilaterally being worse in the left. The edema on the left side extends into the left occipital and parietal lobes. This is concerning for fairly widespre ad encephalitis. The temporal lobe distribution can suggests possible herpes although the edema is no nspecific. Petar Devi MD on June 19, 2017 at 18:58 Board Certified Radiologist. This report was verified electronically.
--- NOTE | 2017-06-19 19:56 | PD.ID.CON ---
History of Present Illness Service ID Consult Requested By Reason for Consult Evaluation and management of possible infectious encephalitis. Primary Care Physician Anupam Penn MD Diagnoses: History of Present Illness Mr. Finley is a 81-year-old male with past medical history significant for slowly progressing dementia since 2013 and he was initially diagnosed with mild cognitive disorder. His past medical history is also significant for left knee infection for which he received IV antibiotics and unfortunately because of hardware could not be taken out he was placed on Keflex and rifampin and has been on it for the last 1-1/[address] Merino. He used to see Dr. AUSTIN but reportedly Dr. AUSTIN did not agree with oral suppression with rifampin and hence stopped taking the patient and Dr. Merino has been following this patient and prescribing the Keflex rifampin combination. With this background patient started having a decline in his mentation approximately 2 months back when he had four-day episode where he had trouble with speech and could not communicate or could not function his symptoms assess assisted-living television on for opening the door to his home. He was being followed by Dr. Wilson and insisted that this was not an acute change the right decided to wait on it and was seen eventually by Dr. Wilson to 2 weeks and he returned from out of town. MRI at that point showed left temporal edema. Due to worsening change in mentation patient had a repeat MRI as well as EEG. The EEG didn't done on April 30 showed temporal slowing with no seizures. He also had some blood work which include. ROSCOE virus PCR which was negative. Anti-MMDA and several other neurological workup is negative. Patient was supposed to have a repeat MRI as well as an LP. Patient did have an LP on June 18, 2017. The LP was positive for 77 WBCs, 7 RBCs with elevation and total protein to the 70s and normal glucose. Unfortunately there were no CSF cultures sent. CSF was sent for HSV which is negative as well as VZV which is pending at the present time. I'm encephalitis workup has been sent although patient does not have any exposure history or any recent travel history. West Nile virus testing has been sent and is pending. Patient's reports Dr. Wilson contact them today after getting some other results from the LP. Patient denies any complaints. Denies any headache, chest pain, fevers, nausea, vomiting, dizziness, or shortness of breath. Denies anything making his symptoms better or worse. Infectious disease is consulted for evaluation and management of possible infectious encephalitis. Review of Systems ROS Limitations: Clinical Condition Past Family Social History Allergies: Coded Allergies: Sulfa (Sulfonamide Antibiotics) (Unverified Allergy, Severe, 06/18/17) penicillin G (Unverified Allergy, Severe, 06/18/17) Past Medical History Osteoarthritis of hands and fingers. History of prostate cancer Heart appearing GERD Hypertension Cognitive impairment Dementia Stroke suspected herpes encephalitis Past Surgical History Cholecystectomy Bilateral inguinal hernia repair Pancreatitis with cyst Right ureteral stents Upper and lower dental implants Bilateral cataract extraction Vasectomy Prostatectomy Right ureteral stent placement Bilateral total knees Tonsillectomy History of pancreatitis and pseudocyst Reported Medications Reported Meds & Active Scripts Active Walker with Front Wheels (Device) 1 Mis Mis 1 Ea .ROUTE DIRECTED Reported Probiotic (Saccharomyces Boulardii) 250 Mg Cap 250 Mg PO BID [Magtein] 1 Cap PO DAILY Miralax Powder (Polyethylene Glycol 3350 Powder) 17 Gm Powd 17 Gm PO DAILY Mix and dissolve one measuring cap-ful (17 grams) in water or juice. Keflex (Cephalexin) 500 Mg Cap 500 Mg PO Q12H Rifampin 300 Mg Cap 300 Mg PO BID Vitamin B-12 (Cyanocobalamin) 1,000 Mcg Subl 1,000 Mcg SL DAILY Vitamin B-6 (Pyridoxine HCl) 100 Mg Tab 100 Mg PO DAILY Vitamin C Powder (Ascorbic Acid) 1 Pow Pow 1 Pack PO BID Vitamin D (Cholecalciferol) 2,000 Unit Cap 1 Cap PO HS Co Q-10 (Coenzyme Q10 (Ubidecarenone)) 200 Mg Cap 1 Cap PO DAILY Lisinopril 30 Mg Tab 30 Mg PO DAILY Memantine 10 Mg Tab 10 Mg PO BID Metoprolol Tartrate 50 Mg Tab 50 Mg PO DAILY Donepezil 10 Mg Tab 10 Mg PO DAILY Active Ordered Medications Current Medications Medications (Trade) Dose Ordered Sig/Miguel Route Start Time Stop Time Status Last Admin (NS Flush) 2 ml UNSCH PRN IV FLUSH 06/19/17 11:30 Sodium Chloride 1,000 ml @ 100 mls/hr Q10H IV 06/19/17 15:00 06/19/17 17:00 (NS Flush) 2 ml UNSCH PRN IV FLUSH 06/19/17 13:30 (NS Flush) 2 ml BID IV FLUSH 06/19/17 21:00 (Tylenol) 650 mg Q4H PRN PO 06/19/17 13:30 (Zofran Inj) 4 mg Q6H PRN IVP 06/19/17 13:30 (Compazine Supp) 25 mg Q12H PRN RECTAL 06/19/17 13:30 (Tylenol) 650 mg Q6H PRN PO 06/19/17 13:30 (Percocet 5-325 Mg) 1 tab Q6H PRN PO 06/19/17 13:30 (Percocet 10-325 Mg) 1 tab Q6H PRN PO 06/19/17 13:30 (Morphine Inj) 2 mg Q3H PRN IV 06/19/17 13:30 (Morphine Inj) 4 mg Q3H PRN IV 06/19/17 13:30 (Narcan Inj) 0.4 mg UNSCH PRN IV 06/19/17 13:30 (Marilu-Colace) 1 tab BID PO 06/19/17 21:00 (Milk Of Magnesia Liq) 30 ml Q12H PRN PO 06/19/17 13:30 (Senokot) 17.2 mg Q12H PRN PO 06/19/17 13:30 (Dulcolax Supp) 10 mg DAILY PRN RECTAL 06/19/17 13:30 (Lactulose Liq) 30 ml DAILY PRN PO 06/19/17 13:30 (Vitamin B12) 1,000 mcg DAILY PO 06/20/17 09:00 (Aricept) 10 mg DAILY PO 06/20/17 09:00 (Namenda) 10 mg BID PO 06/19/17 21:00 (Lopressor) 50 mg DAILY PO 06/20/17 09:00 (Miralax) 17 gm DAILY PO 06/20/17 09:00 (Vitamin B6) 100 mg DAILY PO 06/20/17 09:00 (Vitamin D3) 2,000 units HS PO 06/19/17 21:00 (Prinivil) 30 mg DAILY PO 06/20/17 09:00 Acyclovir Sodium 700 mg/Sodium Chloride 100 ml @ 100 mls/hr Q8H IV 06/19/17 21:00 Family History Non contributory Social History Cuming every night. Was in the [employer] and traveled to [place] and stationed there for a long time. Lived in [facility], went to School at [employer]. 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 in past has 3 children who live in [place]. He has 6 grand kids. He lives with a significant Other Maryam whom he has known for 18 yrs. She is his designated POA and documents are on chart. Physical Exam Vital Signs Vital Signs Date Time Temp Pulse Resp B/P (MAP) Pulse Ox O2 Delivery O2 Flow Rate FiO2 06/19/17 18:49 06/19/17 12:11 98.0 61 20 158/84 (108) 100 Room Air 06/19/17 10:47 98.4 72 20 179/93 (121) 97 Room Air Physical Exam GENERAL: This is a well-nourished, well-developed patient, in no apparent distress. SKIN: No rashes, ecchymoses or lesions. Cool and dry. HEAD: Atraumatic. Normocephalic. No temporal or scalp tenderness. EYES: Pupils equal round and reactive. Extraocular motions intact. No scleral icterus. No injection or drainage. ENT: Nose without bleeding, purulent drainage or septal hematoma. Throat without erythema, tonsillar hypertrophy or exudate. Uvula midline. Airway patent. NECK: Trachea midline. Supple, nontender, no meningeal signs. CARDIOVASCULAR: Regular rate and rhythm without murmurs, gallops, or rubs. RESPIRATORY: Clear to auscultation. Breath sounds equal bilaterally. No wheezes , rales, or rhonchi. GASTROINTESTINAL: Abdomen soft, non-tender, nondistended. MUSCULOSKELETAL: Extremities without clubbing, cyanosis, or edema. Surgical knee scars are intact with no e.o infection. NEUROLOGICAL: Awake and alert. Walks in room. Gait cautious. Word finding difficulty. Takes long time to complete sentences. Content of speech makes sense. Psych: cooperative IV line sites with no e.o infection./ Laboratory Laboratory Tests Test 06/19/17 12:00 White Blood Count 5.4 Red Blood Count 4.34 Hemoglobin 13.5 Hematocrit 38.9 Mean Corpuscular Volume 89.7 Mean Corpuscular Hemoglobin 31.2 Mean Corpuscular Hemoglobin Concent 34.8 Red Cell Distribution Width 15.1 Platelet Count 124 Mean Platelet Volume 7.4 Neutrophils (%) (Auto) 62.1 Lymphocytes (%) (Auto) 22.6 Monocytes (%) (Auto) 12.3 Eosinophils (%) (Auto) 2.6 Basophils (%) (Auto) 0.4 Neutrophils # (Auto) 3.4 Lymphocytes # (Auto) 1.2 Monocytes # (Auto) 0.7 Eosinophils # (Auto) 0.1 Basophils # (Auto) 0.0 CBC Comment DIFF FINAL Differential Comment Prothrombin Time 10.9 Prothromb Time International Ratio 1.0 Activated Partial Thromboplast Time 24.6 Blood Urea Nitrogen 9 Creatinine 0.85 Random Glucose 85 Calcium Level 8.5 Sodium Level 134 Potassium Level 3.9 Chloride Level 99 Carbon Dioxide Level 23.6 Anion Gap 11 Estimat Glomerular Filtration Rate 87 Result Diagram: 06/19/17 1200 06/19/17 1200 Imaging Last Impressions Brain MRI 06/19/17 0000 Signed Impressions: Service Date/Time: Monday, June 19, 2017 17:24 - CONCLUSION: Very prominent edema seen in the temporal lobes bilaterally being worse in the left. The edema on the left side extends into the left occipital and parietal lobes. This is concerning for fairly widespread encephalitis. The temporal lobe distribution can suggests possible herpes although the edema is nonspecific. Petar Devi MD Assessment and Plan Assessment and Plan Possible Infectious Encephalitis. Seems less likely to be bacterial as this has been going on since February 2014 with no e.o sepsis or infectious process like constitutional symptoms. Definite worsening on MRI in terms of edema with now temporal, parietal and occipital lobes involved. ? Viral encephalitis. 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 Recs DC Rifampin (highly liver toxic with no indication) Continue Keflex at present but will d.w patients if she would like to continue this regimen as well. Patient has been on this regimen for 1.5 yrs with no relapse. Agree with Infectious workup: CSF ROSCOE virus, CSF WnV. Add CSF cultures: AFB, Bacterial and Fungal cultures and gram stain. Add CSF VDRL. Check RPR. Check HIV and hepatitis panel. Pts POA consented for it. Follow cultures Follow clinically. Continue Acyclovir IV (follow CSF VZV) CSF HSV negative. to cover for me this weekend. Tatyana Montero MD Jun 19, 2017 19:56
[2017-06-19 20:00] VITALS: BP 140/83; PULSE 67; RESP 19; TEMP 97.7; O2SAT 100
--- NOTE | 2017-06-19 20:24 | MB ---
cc: YANNI MCKEON MD DATE OF CONSULTATION 06/19/17 DATE OF 1935 REASON FOR CONSULTATION Possible encephalitis. HISTORY OF PRESENT ILLNESS The patient is a 81-year-old man, a patient of Dr. Wilson neurology, and was sent here for treatment for possible herpes encephalitis. He apparently had a lumbar puncture that came back suspicious and he was notified to come here. Apparently, his states that he has had a decline in cognition and more confusion over the last several months. He had an MRI a few months ago and he had some abnormalities, white matter changes over the left hemisphere. He was supposed to also have a follow-up MRI with and without contrast as an outpatient but had the spinal tap instead. The patient denies any headache. Denies any recent travel. Denies a stiff neck. Denies any fever. Denies a recent infection as far as upper respiratory infection. His states that he has been on antibiotics for nearly a year for a chronic left knee infection. PAST MEDICAL HISTORY 1. Arthritis of the hands and fingers 2. Prostate cancer, 3. Reflux, 4. Hypertension, 5. Dementia, 6. Chronic left knee infection. PAST SURGICAL HISTORY 1. Cholecystectomy 2. Inguinal hernia repair 3. Pancreatitis with a cyst 4. Right ureteral stents, central implants bilateral upper/lower. 5. Cataract surgery 6. Vasectomy 7. Prostatectomy MEDICATIONS Home 1. Probiotics 2. MiraLax 3. Keflex 4. Rifampin 5. B12, B6, 6. Vitamin C, D 7. CoQ 10, 8. Lisinopril 9. Namenda 10 mg b.i.d. 10. Aricept 10 mg daily, 11. Metoprolol 50 mg daily. ALLERGIES SULFA PENICILLIN FAMILY HISTORY Hypertension. SOCIAL HISTORY Three bourbon and 7-Up daily. No tobacco or any other drugs PHYSICAL EXAMINATION VITAL SIGNS: on exam vitals temperature is 98, heart rate 61, respiratory rate 20, blood pressure 158/84, satting at 100% room air. NEUROLOGIC: He is awake and alert. He knows he is not at home. He could not tell me the name of the hospital. He knows it is in [facility]. He was able to tell me the president. He was able to tell me he is in [place]. He knew his date of and his age. He recognizes his spouse. His speech otherwise is fluent. His pupils are reactive. Visual akbar seem full. Face symmetrical. Tongue midline. Motor krueger I do not appreciate any significant weakness. No drift or leg lag. Toes withdraws. Cerebellar normal. Gait is withheld. LABORATORY DATA CBC - white count 5.4, hemoglobin 13.5, hematocrit 38.9, platelets 124,000. I do not see any left shift. Coag panel unremarkable. Chemistries - sodium 134, GFR 87. Serology HSV1 and 2 PCR are both negative. Varicella PCR is pending. A spinal tap shows a glucose of 53, protein of 79. A lot of the encephalitis panels are still pending. He has 77 white cells. Seven red cells. CMV DNA negative. Sher-Sams DNA negative. ROSCOE virus pending. West Nile has not been checked nor do I see anything for Lyme. No microbiology either. IMAGING STUDIES No recent imaging. He did have an MRI a couple months ago at [facility]. IMPRESSION Dementia, sent here for possible herpes encephalitis which I doubt. RECOMMENDATIONS Recommend input from Infectious Disease. I will go ahead and get an MRI of the brain. He had an EEG. We will get those results. Continue his Namenda and Aricept. I will order an MRI with and without contrast of the brain. Further recommendations will be made accordingly MD AZAEL Almendarez/ /3:11 PM /8:06 PM
[2017-06-19] MEDS ORDERED: RIFAMPIN 150 MG CAP PO SCH (21:00)
[2017-06-19] MEDS ORDERED: ASCORBIC ACID PO SCH (21:00)
[2017-06-19] MEDS: SODIUM CHLORIDE 0.9% FLUSH 10 ML FLUSH IV FLUSH SCH (21:00)
[2017-06-19] MEDS ORDERED: NON-FORMULARY DRUG (Saccharomyces Boulardii (Probiotic) 250 MG) PO SCH (21:00)
[2017-06-19] MEDS: MEMANTINE HCL 10 MG TAB PO SCH (21:38)
[2017-06-19] MEDS: CHOLECALCIFEROL (VIT D3) 1000 UNIT TAB PO SCH (21:38)
[2017-06-19] MEDS: DOCUSATE SODIUM 50 MG/SENNA 8.6 MG TAB PO SCH (21:39)
[2017-06-19] MEDS: ACYCLOVIR INJ 700 MG in SODIUM CHLORIDE 0.9% INJ 100 ML IV SCH (21:42)
--- NOTE | 2017-06-19 21:42 | MG ---
cc: KIM REYES M.D. Lab No: [id number] Date: 06/19/17 Age: 81 Sex: M Race: DATE OF 1935 AGE [id number]. REFERRING PHYSICIAN Silt ROOM E57 An awake, drowsy asleep study with photic stimulation. Came to the hospital because his neurologist, Dr. Wilson, had him undergo a spinal tap and suspicious for herpes encephalitis. The patient has been having a cognitive decline over some time. MEDICATIONS Currently on Keflex, rifampin, Lisinopril, Donepezil, Namenda and others. DESCRIPTION OF RECORD The patient has some mild slowing predominately of 6-7 Hz. There may be a little bit more slowing over the left hemisphere. No epileptiform features seen. Hyperventilation was not performed. Photic stimulation with a minimal driving response. IMPRESSION Abnormal EEG due to some mild slowing of the left hemisphere. No epileptiform features. Clinical correlation. Kim Reyes MD DF/ELLIE /7:32 PM /9:31 PM
[2017-06-19 22:34] LABS: INDIRECT BILIRUBIN 0.3 MG/DL (0.0-0.8); TOTAL BILIRUBIN ADULT 0.4 MG/DL (0.2-1.0)
[2017-06-20] VITALS (7 sets, daily range): BP systolic 113–161; BP diastolic 65–94; PULSE 62–82; RESP 16–20; TEMP 96–98.3; O2SAT 96–97
[2017-06-20] MEDS: SODIUM CHLOR 0.9% 1000 ML INJ 1,000 ML IV SCH ×3 (01:00→21:00)
[2017-06-20] MEDS: ACYCLOVIR INJ 700 MG in SODIUM CHLORIDE 0.9% INJ 100 ML IV SCH ×3 (06:32→22:10)
[2017-06-20] MEDS: POLYETHYLENE GLYCOL 17 GM PKG PO SCH (08:05)
[2017-06-20] MEDS: MEMANTINE HCL 10 MG TAB PO SCH ×2 (08:06→22:09)
[2017-06-20] MEDS: CYANOCOBALAMIN 1,000 MCG TAB PO SCH (08:06)
[2017-06-20] MEDS: METOPROLOL TARTRATE 50 MG TAB PO SCH (08:06)
[2017-06-20] MEDS: DONEPEZIL HCL 5 MG TAB PO SCH (08:06)
[2017-06-20] MEDS: DOCUSATE SODIUM 50 MG/SENNA 8.6 MG TAB PO SCH ×2 (08:06→22:09)
[2017-06-20] MEDS: SODIUM CHLORIDE 0.9% FLUSH 10 ML FLUSH IV FLUSH SCH ×2 (08:07→21:00)
[2017-06-20] MEDS: LISINOPRIL 10 MG TAB PO SCH (08:07)
[2017-06-20] MEDS: PYRIDOXINE HCL 50 MG TAB PO SCH (08:09)
[2017-06-20] MEDS ORDERED: NON-FORMULARY DRUG (Coenzyme Q10 (Ubidecarenone) (Co Q-10) 1 CAP) PO SCH (09:00)
[2017-06-20 09:56] LABS: AUTOMATED NEUTROPHIL # 3.1 TH/MM3 (1.8-7.7); BASOPHIL % 0.2 % (0.0-2.0); EOSINOPHIL # 0.1 TH/MM3 (0-0.4); EOSINOPHIL % 2.2 % (0.0-4.0); HEMATOCRIT 39.3 % (39.0-51.0); HEMO FLAGS DIFF FINAL; LYMPHOCYTE # 1.2 TH/MM3 (1.0-4.8); MEAN CELL VOLUME 89.8 FL (80.0-100.0); MEAN CORPUSCULAR HEMOGLOBIN 31.1 PG (27.0-34.0); MEAN CORPUSCULAR HGB CONC 34.6 % (32.0-36.0); MONO % 10.8 % (0.0-8.0); NEUT % 62.8 % (16.0-70.0); PLATELET COUNT 131 TH/MM3 (150-450); RED BLOOD COUNT 4.38 MIL/MM3 (4.50-5.90); RED CELL DISTRIBUTION WIDTH 14.7 % (11.6-17.2)
[2017-06-20 10:19] LABS: ANION GAP 6 MEQ/L (5-15); AST (GOT) 32 U/L (15-37); BICARBONATE 26.9 MEQ/L (21.0-32.0); BLOOD UREA NITROGEN 10 MG/DL (7-18); CHLORIDE 102 MEQ/L (98-107); GLOMERULAR FILTRATION RATE 86 ML/MIN (>89); MAGNESIUM 2.2 MG/DL (1.5-2.5); SODIUM (NA) 135 MEQ/L (136-145)
[2017-06-20 10:20] LABS: ALT (GPT) 45 U/L (12-78)
[2017-06-20 10:29] LABS: ALKALINE PHOSPHATASE 52 U/L (45-117); FREE T4 0.88 NG/DL (0.76-1.46); TOTAL BILIRUBIN ADULT 0.5 MG/DL (0.2-1.0)
[2017-06-20 10:34] LABS: HEMOGLOBIN A1b 0.7 %; HEMOGLOBIN Ao 85.9 %; HEMOGLOBIN P3 3.6 %
[2017-06-20 12:33] LABS: BACTERIA, URINE RARE /hpf; BLOOD, URINE NEG (NEG); COMMENT (UR) CULT NOT INDICATED; CULTURE IF INDICATED CULT NOT INDICATED; GLUCOSE,URINE NEG (NEG); KETONE, URINE TRACE mg/dL (NEG); MUCUS URINE FEW /lpf (OCC); NITRITE,URINE NEG (NEG); URINE COLOR YELLOW (YELLW/STRAW)
--- NOTE | 2017-06-20 13:39 | HHI.PR ---
Subjective Remarks Follow up confusion. Patient has no complaints at this time. Denies chest pain, dyspnea, nausea, vomiting. Objective Vitals Vital Signs Date Time Temp Pulse Resp B/P (MAP) Pulse Ox O2 Delivery O2 Flow Rate FiO2 06/20/17 12:05 98.2 68 17 156/94 (114) 96 06/20/17 08:00 96.0 71 16 144/87 (106) 97 06/20/17 08:00 73 06/20/17 04:00 97.8 70 20 149/69 (95) 97 06/20/17 00:20 98.3 62 16 113/65 (81) 97 06/19/17 20:00 97.7 67 19 140/83 (102) 100 06/19/17 18:49 I/O 06/19/17 06/19/17 06/19/17 06/20/17 06/20/17 06/20/17 07:00 15:00 23:00 07:00 15:00 23:00 Intake Total 150 ml Balance 150 ml Intake IV Total 150 ml # Voids 2 1 Result Diagram: 06/20/17 0913 06/20/17 0913 Imaging Last Impressions Brain MRI 06/19/17 0000 Signed Impressions: Service Date/Time: Monday, June 19, 2017 17:24 - CONCLUSION: Very prominent edema seen in the temporal lobes bilaterally being worse in the left. The edema on the left side extends into the left occipital and parietal lobes. This is concerning for fairly widespread encephalitis. The temporal lobe distribution can suggests possible herpes although the edema is nonspecific. Petar Devi MD Objective Remarks General: No acute distress. Heart: Regular rate and rhythm. No murmur. Lungs: Clear to auscultation bilaterally. No wheezes, rales, or rhonchi. Breathing is nonlabored. Abdomen: Soft, nontender, nondistended. Extremities: No lower extremity edema. Psych: Alert. Oriented to year, city. Not oriented to month. 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 Confusion: Likely secondary to dementia. Possible infectious encephalitis. Appreciate infectious disease and neurology recommendations. EEG report noted. Continue acyclovir. Continue Aricept, Namenda. Continue infectious workup. 2. Hypertension: Continue lisinopril, metoprolol. 3. Continue PT/OT/ST. 4. DVT prophylaxis: KARINE Clifford. Deyvi Joy MD Jun 20, 2017 13:39
--- NOTE | 2017-06-20 14:13 | HHI.PR ---
Subjective Remarks stable no complaints Objective Vital Signs Date Time Temp Pulse Resp B/P (MAP) Pulse Ox O2 Delivery O2 Flow Rate FiO2 06/20/17 12:05 98.2 68 17 156/94 (114) 96 06/20/17 08:00 96.0 71 16 144/87 (106) 97 06/20/17 08:00 73 06/20/17 04:00 97.8 70 20 149/69 (95) 97 06/20/17 00:20 98.3 62 16 113/65 (81) 97 06/19/17 20:00 97.7 67 19 140/83 (102) 100 06/19/17 18:49 I/O 06/19/17 06/19/17 06/19/17 06/20/17 06/20/17 06/20/17 07:00 15:00 23:00 07:00 15:00 23:00 Intake Total 150 ml Balance 150 ml Intake IV Total 150 ml # Voids 2 1 Result Diagram: 06/20/17 0913 06/20/17 0913 Imaging mri concerning for encephalitis left >right see full report. Objective Remarks awake alert to place and time and self follows perrla motor grossly nl eeg slower on the left no sz's. echo hiv csf afb vdrl and hep panel pending. Assessment and Plan Assessment and Plan encephalitis cont acyclovir w/u ongoing/ Kim Reyes MD Jun 20, 2017 14:13
[2017-06-20] MEDS: CHOLECALCIFEROL (VIT D3) 1000 UNIT TAB PO SCH (22:09)
[2017-06-21] VITALS (10 sets, daily range): BP systolic 129–152; BP diastolic 72–84; PULSE 62–97; RESP 17–20; TEMP 97.1–98.5; O2SAT 95–99
[2017-06-21] MEDS: ACYCLOVIR INJ 700 MG in SODIUM CHLORIDE 0.9% INJ 100 ML IV SCH ×3 (04:53→21:45)
[2017-06-21] MEDS: MEMANTINE HCL 10 MG TAB PO SCH ×2 (08:59→21:45)
[2017-06-21] MEDS: PYRIDOXINE HCL 50 MG TAB PO SCH (09:00)
[2017-06-21] MEDS: CYANOCOBALAMIN 1,000 MCG TAB PO SCH (09:00)
[2017-06-21] MEDS: LISINOPRIL 10 MG TAB PO SCH (09:01)
[2017-06-21] MEDS: METOPROLOL TARTRATE 50 MG TAB PO SCH (09:02)
[2017-06-21] MEDS: DOCUSATE SODIUM 50 MG/SENNA 8.6 MG TAB PO SCH ×2 (09:02→21:45)
[2017-06-21] MEDS: POLYETHYLENE GLYCOL 17 GM PKG PO SCH (09:02)
[2017-06-21] MEDS: DONEPEZIL HCL 5 MG TAB PO SCH (09:02)
[2017-06-21] MEDS: SODIUM CHLORIDE 0.9% FLUSH 10 ML FLUSH IV FLUSH SCH ×2 (09:03→21:00)
[2017-06-21] MEDS: SODIUM CHLOR 0.9% 1000 ML INJ 1,000 ML IV SCH ×2 (09:05→17:00)
--- NOTE | 2017-06-21 13:40 | HHI.IDPN ---
Subjective Subjective Remarks ID COVERAGE Chart reviewed 81 year old male admitted for neuro work-up, possible infectious encephalitis, prob started March 2017 Temps ok C/O some frontal COHEN started today - worse when he is upright LP results noted HSV negative West Nile negative VZV pending VDRL pending Cytology pending CSF CMV negative ROSCOE pending HIVAb pending Antibiotics Acyclovir Lines PIV Past Medical History Reviewed Allergies: Coded Allergies: Sulfa (Sulfonamide Antibiotics) (Unverified Allergy, Severe, 06/18/17) penicillin G (Unverified Allergy, Severe, 06/18/17) Objective . Vital Signs Date Time Temp Pulse Resp B/P (MAP) Pulse Ox O2 Delivery O2 Flow Rate FiO2 06/21/17 13:11 98.1 97 18 138/78 (98) 97 06/21/17 09:14 97 06/21/17 08:00 97.8 66 17 141/84 (103) 98 06/21/17 04:00 97.5 65 18 152/83 (106) 99 06/21/17 00:00 97.1 67 18 129/83 (98) 97 06/20/17 22:10 82 06/20/17 20:00 98.0 72 18 161/91 (114) 96 06/20/17 16:00 97.7 71 18 139/78 (98) 96 . Laboratory Tests Test 06/20/17 09:13 White Blood Count 5.0 TH/MM3 Red Blood Count 4.38 MIL/MM3 Hemoglobin 13.6 GM/DL Hematocrit 39.3 % Mean Corpuscular Volume 89.8 FL Mean Corpuscular Hemoglobin 31.1 PG Mean Corpuscular Hemoglobin Concent 34.6 % Red Cell Distribution Width 14.7 % Platelet Count 131 TH/MM3 Mean Platelet Volume 7.6 FL Neutrophils (%) (Auto) 62.8 % Lymphocytes (%) (Auto) 24.0 % Monocytes (%) (Auto) 10.8 % Eosinophils (%) (Auto) 2.2 % Basophils (%) (Auto) 0.2 % Neutrophils # (Auto) 3.1 TH/MM3 Lymphocytes # (Auto) 1.2 TH/MM3 Monocytes # (Auto) 0.5 TH/MM3 Eosinophils # (Auto) 0.1 TH/MM3 Basophils # (Auto) 0.0 TH/MM3 CBC Comment DIFF FINAL Differential Comment Laboratory Tests Test 06/19/17 21:20 06/20/17 09:13 Total Bilirubin 0.4 MG/DL 0.5 MG/DL Direct Bilirubin 0.1 MG/DL Indirect Bilirubin 0.3 MG/DL Aspartate Amino Transf (AST/SGOT) 32 U/L 32 U/L Alanine Aminotransferase (ALT/SGPT) 42 U/L 45 U/L Alkaline Phosphatase 50 U/L 52 U/L Total Protein 6.2 GM/DL 6.8 GM/DL Albumin 3.2 GM/DL 3.5 GM/DL Blood Urea Nitrogen 10 MG/DL Creatinine 0.86 MG/DL Random Glucose 107 MG/DL Calcium Level 8.7 MG/DL Phosphorus Level 3.0 MG/DL Magnesium Level 2.2 MG/DL Sodium Level 135 MEQ/L Potassium Level 4.0 MEQ/L Chloride Level 102 MEQ/L Carbon Dioxide Level 26.9 MEQ/L Anion Gap 6 MEQ/L Estimat Glomerular Filtration Rate 86 ML/MIN Hemoglobin A1c 5.3 % Free Thyroxine 0.88 NG/DL Thyroid Stimulating Hormone 3rd Gen 1.310 uIU/ML Microbiology Date/Time Source Procedure Growth Status 06/19/17 21:25 Blood Peripheral Aerobic Blood Culture - Preliminary NO GROWTH IN 2 DAYS Resulted 06/19/17 21:25 Blood Peripheral Anaerobic Blood Culture - Preliminary NO GROWTH IN 2 DAYS Resulted 06/19/17 21:20 Blood Peripheral Aerobic Blood Culture - Preliminary NO GROWTH IN 2 DAYS Resulted 06/19/17 21:20 Blood Peripheral Anaerobic Blood Culture - Preliminary NO GROWTH IN 2 DAYS Resulted Imaging Brain MRI 06/19/17 0000 Signed Impressions: Service Date/Time: Monday, June 19, 2017 17:24 - CONCLUSION: Very prominent edema seen in the temporal lobes bilaterally being worse in the left. The edema on the left side extends into the left occipital and parietal lobes. This is concerning for fairly widespread encephalitis. The temporal lobe distribution can suggests possible herpes although the edema is nonspecific. Petar Devi MD Physical Exam GENERAL: Awake and alert, NAD, speech clear SKIN: No rashes, ecchymoses or lesions. Cool and dry. HEAD: Atraumatic. Normocephalic. No temporal or scalp tenderness. EYES: Pupils equal round and reactive. Extraocular motions intact. No scleral icterus. No injection or drainage. ENT: Nose without bleeding, purulent drainage or septal hematoma. Throat without erythema, tonsillar hypertrophy or exudate. Uvula midline. Airway patent. NECK: Trachea midline. Supple, nontender, no meningeal signs. CARDIOVASCULAR: Regular rate and rhythm without murmurs, gallops, or rubs. RESPIRATORY: Clear to auscultation. Breath sounds equal bilaterally. No wheezes , rales, or rhonchi. GASTROINTESTINAL: Abdomen soft, non-tender, nondistended. MUSCULOSKELETAL: Extremities without clubbing, cyanosis, or edema. Surgical knee scars are intact with no e.o infection. NEUROLOGICAL: CN intact. Motor symmetrical. Awake and alert. Walks in room. Gait cautious. Word finding sometimes difficulty. Takes long time to complete sentences. Content of speech makes sense. Psych: cooperative IV line sites with no e.o infection./ Assessment & Plan Remarks Assessment and Plan Possible Infectious Encephalitis. Seems less likely to be bacterial as this has been going on since February 2014 with no e.o sepsis or infectious process like constitutional symptoms. Definite worsening on MRI in terms of edema with now temporal, parietal and occipital lobes involved. ? Viral encephalitis. 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 Recs Continue Acyclovir Follow the rest of CSF studies Monitor progress Updated patient and results of CSF Bruna Hairston MD Jun 21, 2017 13:40
--- NOTE | 2017-06-21 13:48 | HHI.PR ---
Subjective Remarks Follow up possible encephalitis. Patient reporting headache today. Started this morning. Mild blurred vision. No chest pain, dyspnea. Also reports constipation. Objective Vitals Vital Signs Date Time Temp Pulse Resp B/P (MAP) Pulse Ox O2 Delivery O2 Flow Rate FiO2 06/21/17 13:11 98.1 97 18 138/78 (98) 97 06/21/17 09:14 97 06/21/17 08:00 97.8 66 17 141/84 (103) 98 06/21/17 04:00 97.5 65 18 152/83 (106) 99 06/21/17 00:00 97.1 67 18 129/83 (98) 97 06/20/17 22:10 82 06/20/17 20:00 98.0 72 18 161/91 (114) 96 06/20/17 16:00 97.7 71 18 139/78 (98) 96 I/O 06/20/17 06/20/17 06/20/17 06/21/17 06/21/17 06/21/17 07:00 15:00 23:00 07:00 15:00 23:00 Intake Total 480 ml 240 ml 240 ml Output Total 400 ml Balance 480 ml 240 ml -160 ml Intake Oral 480 ml 240 ml 240 ml Output Urine Total 400 ml # Voids 1 4 1 2 # Bowel Movements 1 1 Result Diagram: 06/20/1713 06/20/17 0913 Imaging Last Impressions Brain MRI 06/19/17 0000 Signed Impressions: Service Date/Time: Monday, June 19, 2017 17:24 - CONCLUSION: Very prominent edema seen in the temporal lobes bilaterally being worse in the left. The edema on the left side extends into the left occipital and parietal lobes. This is concerning for fairly widespread encephalitis. The temporal lobe distribution can suggests possible herpes although the edema is nonspecific. Petar Devi MD Objective Remarks General: No acute distress. Heart: Regular rate and rhythm. No murmur. Lungs: Clear to auscultation bilaterally. No wheezes, rales, or rhonchi. Breathing is nonlabored. Abdomen: Soft, nontender, nondistended. Extremities: No lower extremity edema. Psych: Alert. Answers questions appropriately, but sometimes has difficulty finding words. 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 Still with confusion. Now reporting mild headache. Continue encephalitis workup. 1. Confusion: Likely secondary to dementia. Possible infectious encephalitis. Appreciate infectious disease and neurology recommendations. EEG report noted. Continue acyclovir. Continue Aricept, Namenda. Continue infectious workup. 2. Hypertension: Continue lisinopril, metoprolol. 3. Continue PT/OT/ST. 4. DVT prophylaxis: KARINE Clifford. Deyvi Joy MD Jun 21, 2017 13:48
[2017-06-21] MEDS: CHOLECALCIFEROL (VIT D3) 1000 UNIT TAB PO SCH (21:45)
[2017-06-22] VITALS: BP 143/81; PULSE 67; RESP 18; TEMP 98.2; O2SAT 97
[2017-06-22] MEDS: SODIUM CHLOR 0.9% 1000 ML INJ 1,000 ML IV SCH (02:39)
[2017-06-22 04:00] VITALS: BP 135/78; PULSE 76; RESP 18; TEMP 97.9; O2SAT 95
[2017-06-22] MEDS: ACYCLOVIR INJ 700 MG in SODIUM CHLORIDE 0.9% INJ 100 ML IV SCH (04:46)
[2017-06-22 08:18] VITALS: BP 120/71; PULSE 74; RESP 20; TEMP 97.9; O2SAT 97
[2017-06-22] MEDS: PYRIDOXINE HCL 50 MG TAB PO SCH (08:51)
[2017-06-22] MEDS: DONEPEZIL HCL 5 MG TAB PO SCH (08:51)
[2017-06-22] MEDS: CYANOCOBALAMIN 1,000 MCG TAB PO SCH (08:52)
[2017-06-22] MEDS: MEMANTINE HCL 10 MG TAB PO SCH (08:52)
[2017-06-22] MEDS: METOPROLOL TARTRATE 50 MG TAB PO SCH (08:52)
[2017-06-22] MEDS: DOCUSATE SODIUM 50 MG/SENNA 8.6 MG TAB PO SCH (08:52)
[2017-06-22] MEDS: POLYETHYLENE GLYCOL 17 GM PKG PO SCH (08:53)
[2017-06-22] MEDS: LISINOPRIL 10 MG TAB PO SCH (08:56)
[2017-06-22] MEDS: SODIUM CHLORIDE 0.9% FLUSH 10 ML FLUSH IV FLUSH SCH (08:56)
[2017-06-22 12:08] VITALS: BP 137/86; PULSE 66; RESP 20; TEMP 97.5; O2SAT 97
--- NOTE | 2017-06-22 12:10 | ECHRPT ---
Indication: SEPSIS, ENDOCARDITIS CONCLUSIONS Normal left ventricular size. Wall thickness is normal. The left ventricular systolic function is hyperdynamic with an estimated ejection fraction in the ra nge of 65- 70%. Doppler parameters are consistent with impaired left ventricular relaxtion (grade 1 diastolic dysfun ction). The left atrial size is mildly dilated. The interatrial septum not well visualized. Trace mitral valve regurgitation. No mitral valve stenosis. Aortic valve sclerosis is present. No aortic valve regurgitation. No aortic valve stenosis. There is mild tricuspid valve regurgitation. Normal estimated pulmonary pressures. The pulmonary valve is not well visualized. The inferior vena cava (IVC) is normal in size. BP: 149 / 69 HR: 70 Rhythm: Sinus MEASUREMENTS (Male / Female) Normal Values Technical Quality:Fair 2D ECHO LVOT Diameter 2.4 cm Aortic Root Diameter 3.5 cm LA Systolic Diameter LX 3.2 cm 3.0 - 4.0 / 2.7 - 3.8 cm M-MODE LV Diastolic Diameter MM 4.6 cm 4.2 - 5.9 / 3.9 - 5.3 cm LV Systolic Diameter MM 3.1 cm LV Ejection Fraction MM Teich 60.2 % LV Cardiac Index MM Teich 2011.8 cm/minm IVS Diastolic Thickness MM 1.0 cm 0.6 - 1.0 / 0.6 - 0.9 cm LVPW Diastolic Thickness MM 1.0 cm 0.6 - 1.0 / 0.6 - 0.9 cm LV Relative Wall Thickness MM 0.4 0.24 - 0.42 / 0.22 - 0.42 LV Mass Index MM 76.5 g/m 49 - 115 / 43 - 95 g/m RV Diastolic Diameter MM 2.5 cm AV Cusp Separation MM 2.2 cm DOPPLER AV Peak Velocity 121.0 cm/s AV Peak Gradient 5.9 mmHg AV Mean Gradient 3.0 mmHg AV Velocity Time Integral 25.4 cm LVOT Peak Velocity 54.9 cm/s LVOT Peak Gradient 1.2 mmHg LVOT Velocity Time Integral 11.9 cm LVOT Cardiac Index 1829.1 cm/minm AV Area Cont Eq vti 2.1 cm AV Area Cont Eq pk 2.1 cm Mitral E Point Velocity 52.3 cm/s Mitral A Point Velocity 78.0 cm/s Mitral E to A Ratio 0.7 LV E' Lateral Velocity 5.1 cm/s Mitral E to LV E' Lateral Ratio 10.3 LV E' Septal Velocity 3.5 cm/s Mitral E to LV E' Septal Ratio 14.9 TR Peak Velocity 261.0 cm/s TR Peak Gradient 27.2 mmHg PV Peak Velocity 47.4 cm/s PV Peak Gradient 0.9 mmHg FINDINGS LEFT VENTRICLE Normal left ventricular size. Wall thickness is normal. The left ventricular systolic function is hyperdynamic with an estimated ejection fraction in the ra nge of 65- 70%. Doppler parameters are consistent with impaired left ventricular relaxtion (grade 1 diastolic dysfun ction). RIGHT VENTRICLE Normal right ventricular size and systolic function. LEFT ATRIUM The left atrial size is mildly dilated. RIGHT ATRIUM The right atrial size is normal. ATRIAL SEPTUM The interatrial septum not well visualized. AORTA The aortic root and proximal ascending aorta are normal in size on limited imaging. MITRAL VALVE Trace mitral valve regurgitation. No mitral valve stenosis. AORTIC VALVE Aortic valve sclerosis is present. No aortic valve regurgitation. No aortic valve stenosis. TRICUSPID VALVE Structurally normal tricuspid valve. There is mild tricuspid valve regurgitation. Normal estimated pulmonary pressures. PULMONARY VALVE The pulmonary valve is not well visualized. VESSELS The inferior vena cava (IVC) is normal in size. PERICARDIUM No pericardial effusion. Torres Allred MD (Electronically Signed) Final Date:22 June 2017 12:09
--- NOTE | 2017-06-22 13:15 | HHI.IDPN ---
Subjective Subjective Remarks Chart reviewed 81 year old male admitted for neuro work-up, possible infectious encephalitis, prob started March 2017 Temps ok C/O some frontal COHEN started today - worse when he is upright LP results noted HSV negative West Nile negative VZV pending VDRL pending Cytology pending CSF CMV negative ROSCOE pending HIV Ab pending Antibiotics Acyclovir Lines PIV Past Medical History Reviewed Allergies: Coded Allergies: Sulfa (Sulfonamide Antibiotics) (Unverified Allergy, Severe, 06/18/17) penicillin G (Unverified Allergy, Severe, 06/18/17) Objective . Vital Signs Date Time Temp Pulse Resp B/P (MAP) Pulse Ox O2 Delivery O2 Flow Rate FiO2 06/22/17 12:08 97.5 66 20 137/86 (103) 97 06/22/17 08:18 97.9 74 20 120/71 (87) 97 06/22/17 04:00 97.9 76 18 135/78 (97) 95 06/22/17 00:00 98.2 67 18 143/81 (101) 97 06/21/17 21:40 68 06/21/17 21:12 97.9 62 20 148/72 (97) 95 06/21/17 18:10 97 06/21/17 16:47 74 06/21/17 16:00 98.5 88 19 147/76 (99) 96 06/21/17 13:11 98.1 97 18 138/78 (98) 97 . Microbiology Date/Time Source Procedure Growth Status 06/19/17 21:25 Blood Peripheral Aerobic Blood Culture - Preliminary NO GROWTH IN 3 DAYS Resulted 06/19/17 21:25 Blood Peripheral Anaerobic Blood Culture - Preliminary NO GROWTH IN 3 DAYS Resulted 06/19/17 21:20 Blood Peripheral Aerobic Blood Culture - Preliminary NO GROWTH IN 3 DAYS Resulted 06/19/17 21:20 Blood Peripheral Anaerobic Blood Culture - Preliminary NO GROWTH IN 3 DAYS Resulted Imaging Brain MRI 06/19/17 0000 Signed Impressions: Service Date/Time: Monday, June 19, 2017 17:24 - CONCLUSION: Very prominent edema seen in the temporal lobes bilaterally being worse in the left. The edema on the left side extends into the left occipital and parietal lobes. This is concerning for fairly widespread encephalitis. The temporal lobe distribution can suggests possible herpes although the edema is nonspecific. Petar Devi MD Physical Exam GENERAL: Awake and alert, NAD, speech clear SKIN: No rashes, ecchymoses or lesions. Cool and dry. HEAD: Atraumatic. Normocephalic. No temporal or scalp tenderness. EYES: Pupils equal round and reactive. Extraocular motions intact. No scleral icterus. No injection or drainage. ENT: Nose without bleeding, purulent drainage or septal hematoma. Throat without erythema, tonsillar hypertrophy or exudate. Uvula midline. Airway patent. NECK: Trachea midline. Supple, nontender, no meningeal signs. CARDIOVASCULAR: Regular rate and rhythm without murmurs, gallops, or rubs. RESPIRATORY: Clear to auscultation. Breath sounds equal bilaterally. No wheezes , rales, or rhonchi. GASTROINTESTINAL: Abdomen soft, non-tender, nondistended. MUSCULOSKELETAL: Extremities without clubbing, cyanosis, or edema. Surgical knee scars are intact with no e.o infection. NEUROLOGICAL: CN intact. Motor symmetrical. Awake and alert. Walks in room. Gait cautious. Word finding sometimes difficulty. Takes long time to complete sentences. Content of speech makes sense. Psych: cooperative IV line sites with no e.o infection./ Assessment & Plan Remarks Assessment and Plan Possible Infectious Encephalitis. Seems less likely to be bacterial as this has been going on since February 2014 with no e.o sepsis or infectious process like constitutional symptoms. Definite worsening on MRI in terms of edema with now temporal, parietal and occipital lobes involved. ? Viral encephalitis. 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 Recs Continue Acyclovir Follow the rest of CSF studies Monitor progress Discussed with : fairly advanced disease involving bilateral areas of brain with edema. Images shown to as well. and I discussed the currently available test results and pending results. Discussed option of repeat LP(as no specimen for additional testing), possible stereotactic brain biospy, Neurosurgery consult. Patient would like to go home. Partner and POA Maryam discussed with him further and she stepped out after few minutes to notify that patient would like to spend rest of his life in his home surrounded by family. He would not like any further testing. We offered hospice and she would like hospice services to be set up at home. will reach out to case management to arrange for these services. She would like the least toxic medication for knee to be continued. She would not like acyclovir sylvester if it can cause renal issues and we do not know if it will work. Tatyana Montero MD Jun 22, 2017 13:15
--- NOTE | 2017-06-22 13:17 | HHI.PR ---
Subjective Remarks Follow up possible encephalitis. Patient still having headaches, improved with pain medication. Some blurred vision. No dyspnea, chest pain. Constipation improved. Objective Vitals Vital Signs Date Time Temp Pulse Resp B/P (MAP) Pulse Ox O2 Delivery O2 Flow Rate FiO2 06/22/17 12:08 97.5 66 20 137/86 (103) 97 06/22/17 08:18 97.9 74 20 120/71 (87) 97 06/22/17 04:00 97.9 76 18 135/78 (97) 95 06/22/17 00:00 98.2 67 18 143/81 (101) 97 06/21/17 21:40 68 06/21/17 21:12 97.9 62 20 148/72 (97) 95 06/21/17 18:10 97 06/21/17 16:47 74 06/21/17 16:00 98.5 88 19 147/76 (99) 96 06/21/17 13:11 98.1 97 18 138/78 (98) 97 I/O 06/21/17 06/21/17 06/21/17 06/22/17 06/22/17 06/22/17 06:59 14:59 22:59 06:59 14:59 22:59 Intake Total 240 ml 560 ml 1460 ml Output Total 400 ml Balance -160 ml 560 ml 1460 ml Intake Oral 240 ml 560 ml 360 ml IV Total 1100 ml Output Urine Total 400 ml # Voids 2 5 4 # Bowel Movements 1 1 Result Diagram: 06/20/17 0913 06/20/17 0913 Imaging Last Impressions Brain MRI 06/19/17 0000 Signed Impressions: Service Date/Time: Monday, June 19, 2017 17:24 - CONCLUSION: Very prominent edema seen in the temporal lobes bilaterally being worse in the left. The edema on the left side extends into the left occipital and parietal lobes. This is concerning for fairly widespread encephalitis. The temporal lobe distribution can suggests possible herpes although the edema is nonspecific. Petar Devi MD Objective Remarks General: No acute distress. Sitting up in a chair. Heart: Regular rate and rhythm. No murmur. Lungs: Clear to auscultation bilaterally. No wheezes, rales, or rhonchi. Breathing is nonlabored. Abdomen: Soft, nontender, nondistended. Extremities: No lower extremity edema. Psych: Alert. Answers questions appropriately. 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 Montero, infectious disease. We had an extensive discussion with the patient and his regarding his condition. Not improving on Acyclovir. His condition appears to be progressing fairly rapidly. Workup thus far has not determined an etiology. Patient is becoming quite frustrated with being in the hospital. He states that he has been "sad" for the past 3 days, associated with his time as an inpatient. After this discussion, the patient's family came to inform us that the patient wants to go home today with Hospice care. This was discussed by Dr. Montero with Dr. Reyes (neurology). Hospice consult was requested. 1. Confusion: Likely secondary to dementia, possible infectious encephalitis. Appreciate infectious disease and neurology recommendations. EEG report noted. Continue acyclovir. Continue Aricept, Namenda. Continue infectious workup. 2. Hypertension: Continue lisinopril, metoprolol. 3. Continue PT/OT/ST. 4. DVT prophylaxis: KARINE Clifford. Discharge Planning Discharge home in stable condition. Hospice to evaluate the patient at home. Deyvi Jyo MD Jun 22, 2017 13:17
--- NOTE | 2017-06-22 13:20 | HHI.DCPOC ---
Discharge Care Plan Diagnosis: (1) Alzheimer's dementia (2) HTN (hypertension) (3) Hypertension (4) Altered mental status (5) Confusion Goals to Promote Your Health * To prevent worsening of your condition and complications * To maintain your health at the optimal level Directions to Meet Your Goals Take your medications as prescribed Follow your dietary instruction Follow activity as directed Keep your appointments as scheduled Take your immunizations and boosters as scheduled If your symptoms worsen call your PCP, if no PCP go to Urgent Care Center or Emergency Room Smoking is Dangerous to Your Health. Avoid second hand smoke Call the 24-hour hour crisis hotline for domestic abuse at Deyvi Joy MD Jun 22, 2017 13:20
--- NOTE | 2017-06-22 13:22 | HHI.DS ---
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 Patient comes in at the advice of his neurologist Dr. Wilson for treatment of herpes encephalitis. Patient reports he had a lumbar puncture done yesterday came back suspicious for herpes encephalitis. Patient reports over the past several months patient has had a decline in his cognitive impairment, trouble with speech, and being more confused at times. Patient has been evaluated since outpatient for this by his neurologist having MRIs as well as LP done. Patient's reports Dr. Wilson contact them today after getting some other results from the LP. Patient denies any complaints. Denies any headache, chest pain, fevers, nausea, vomiting, dizziness, or shortness of breath. Denies anything making his symptoms better or worse. CBC/BMP: 06/20/17 0913 06/20/17 0913 Significant Findings Laboratory Tests Test 06/19/17 21:20 06/19/17 21:25 06/20/17 09:13 06/20/17 11:40 Total Protein 6.2 GM/DL (6.4-8.2) Albumin 3.2 GM/DL (3.4-5.0) Red Blood Count 4.38 MIL/MM3 (4.50-5.90) Platelet Count 131 TH/MM3 (150-450) Monocytes (%) (Auto) 10.8 % (0.0-8.0) Random Glucose 107 MG/DL (74-106) Sodium Level 135 MEQ/L (136-145) Estimat Glomerular Filtration Rate 86 ML/MIN (>89) Urine Ketones TRACE mg/dL (NEG) Urine Bacteria RARE /hpf (NONE) Urine Mucus FEW /lpf (OCC) Imaging Last Impressions Brain MRI 06/19/17 0000 Signed Impressions: Service Date/Time: Monday, June 19, 2017 17:24 - CONCLUSION: Very prominent edema seen in the temporal lobes bilaterally being worse in the left. The edema on the left side extends into the left occipital and parietal lobes. This is concerning for fairly widespread encephalitis. The temporal lobe distribution can suggests possible herpes although the edema is nonspecific. Petar Devi MD PE at Discharge General: No acute distress. Sitting up in a chair. Heart: Regular rate and rhythm. No murmur. Lungs: Clear to auscultation bilaterally. No wheezes, rales, or rhonchi. Breathing is nonlabored. Abdomen: Soft, nontender, nondistended. Extremities: No lower extremity edema. Psych: Alert. Answers questions appropriately. Hospital Course The patient was admitted for further workup of altered mental status. MRI brain was abnormal. Symptoms felt to possibly be secondary to encephalitis. Infectious disease and neurology were consulted. Lumbar puncture was done. Patient's mental status improved somewhat, but he continued to develop progressive worsening of other neurologic symptoms, including headache and vision changes. Lengthy discussion was held with the patient, family, attending physician, and infectious disease physician. The patient was presented with all the available information and requested hospice consult and possible discharge home in 1-2 days following a family meeting. He then requested discharge home immediately. The patient was felt to be stable for discharge home as he no longer wanted to pursue further workup of this disease process. Pt Condition on Discharge: Stable Discharge Disposition: Discharge Home Discharge Time: > 30 minutes Discharge Instructions DIET: Follow Instructions for: As Tolerated, No Restrictions Activities you can perform: Regular-No Restrictions New Orders: Hospice Care Continued Medications: Ascorbic Acid Powder (Vitamin C Powder) 1 Pow Pow 1 PACK PO BID Cephalexin (Keflex) 500 Mg Cap 500 MG PO Q12H for Infection, CAP 0 Refills Cholecalciferol (Vitamin D) 2,000 Unit Cap 1 CAP PO HS Coenzyme Q10 (Ubidecarenone) (Co Q-10) 200 Mg Cap 1 CAP PO DAILY Cyanocobalamin (Vitamin B-12) 1,000 Mcg Subl 1000 MCG SL DAILY for Nutritional Supplement, TAB.SL 0 Refills Donepezil (Donepezil) 10 Mg Tab 10 MG PO DAILY for Dementia, #30 TAB 0 Refills Lisinopril (Lisinopril) 30 Mg Tab 30 MG PO DAILY for Blood Pressure Management, #30 TAB 0 Refills Memantine (Memantine) 10 Mg Tab 10 MG PO BID for Alzheimer's Dementia, TAB 0 Refills Metoprolol Tartrate (Metoprolol Tartrate) 50 Mg Tab 50 MG PO DAILY, #30 TAB 0 Refills Polyethylene Glycol 3350 Powder (Miralax Powder) 17 Gm Powd 17 GM PO DAILY for Constipation, #1 CAN 0 Refills Mix and dissolve one measuring cap-ful (17 grams) in water or juice. Pyridoxine (Vitamin B-6) 100 Mg Tab 100 MG PO DAILY for Nutritional Supplement, #30 TAB 0 Refills Saccharomyces Boulardii (Probiotic) 250 Mg Cap 250 MG PO BID for Nutritional Supplement, CAP 0 Refills [Magtein] () 1 CAP PO DAILY Discontinued Medications: Rifampin (Rifampin) 300 Mg Cap 300 MG PO BID for Infection, CAP 0 Refills Deyvi Joy MD Jun 22, 2017 13:22
[2017-06-22 13:40] VITALS: PULSE 74
--- NOTE | 2017-06-22 15:08 | HHI.PR ---
Addendum to Inpatient Note Addendum Reason: Additional Documentation Additional Information Recd call from pts daughter Sheree [phone]. Discussed clinical course so far, clinical and radiological findings, d.w and . I explained that and I discussed several options including repeat LP , brain biopsy and last option being Hospice/palliative care. Patient voiced his opinion after asking me about complications of these invasive procedures. Patient was dressed up and wanted to go home to be with his family. Spent additional 25 min in discussions. Tatyana Montero MD Jun 22, 2017 15:08
== END 2017-06-22 16:08 | disposition home or self-care (01) | DRG 99 ==
LOC: NEPE 10:44 → NEDA 13:09 → N05A 18:58
PROVIDERS: ADMIT Family Medicine; ATTEND Family Medicine
DX: B00.4 Herpesviral encephalitis (principal); G30.9 Alzheimer's disease, unspecified; F02.80 Dementia in other diseases classified elsewhere, unspecified severity, without behavioral disturbance, psychotic disturbance, mood disturbance, and anxiety; I10 Essential (primary) hypertension; K21.9 Gastro-esophageal reflux disease without esophagitis; M19.041 Primary osteoarthritis, right hand; M19.042 Primary osteoarthritis, left hand; Z96.653 Presence of artificial knee joint, bilateral; Z85.46 Personal history of malignant neoplasm of prostate; K59.00 Constipation, unspecified; R41.3 Other amnesia
CPT/HCPCS: 62270; 70553; 77003; 80048; 80053; 80074; 80076; 81001; 82945; 83036; 83735; 83916; 84100; 84157; 84439; 84443; 85025; 85610; 85730; 86592; 86651; 86652; 86653; 86654; 86703; 86788; 86789; 87015; 87040; 87070; 87102; 87116; 87205; 87206; 87497; 87498; 87529; 87798; 87799; 88112; 89051; 93306; 95819; A9579; J0133; J7030

== ENCOUNTER 2017-12-02 14:03 | Inpatient (IN) | payer OTHER, MEDICARE ==
[~2017-12-02] VITALS: Ht 177.8 cm; Wt 83.9 kg
[~2017-12-02 14:03] MED LIST changes: -CO Q200C PO; +COQ1200C3 PO; -RIFA300C2 PO
[2017-12-02 14:05] VITALS: BP 145/85; PULSE 83; RESP 14; TEMP 97.8; O2SAT 96
--- NOTE | 2017-12-02 14:48 | PD ---
HPI Chief Complaint: Hip Injury Time Seen by Provider: 14:47 Travel History International Travel<30 days: No Contact w/Intl Traveler<30days: No Traveled to known affect area: No History of Present Illness HPI 82-year-old male with history of dementia, hypertension, presents to emergency department for evaluation of right hip pain following a trip and fall. Patient did not strike his head or lose consciousness. He needed assistance up and was able ambulatory reports significant pain in the right hip. Denies any focal deficits or weakness. No chest pain or tightness. No difficulty breathing. No other symptoms at this time. Despite pain, patient is somewhat any medication for it at this time. PFSH Past Medical History Arthritis: Yes (HANDS,FINGERS) Cancer: No Cardiovascular Problems: No Chemotherapy: No Diabetes: No Diminished Hearing: Yes Endocrine: No Gastrointestinal Disorders: Yes Genitourinary: No Hepatitis: No Hiatal Hernia: No Hypertension: Yes Immune Disorder: No Implanted Vascular Access Dvce: Yes Musculoskeletal: No Neurologic: No Psychiatric: No Reproductive: No Respiratory: No Immunizations Current: Yes Radiation Therapy: No Thyroid Disease: No Past Surgical History Abdominal Surgery: Yes (CHOLECYSTECTOMY, YORDY. ING. HERNIA REP., pancreatitis with cyst) AICD: No Appendectomy: Yes (1939) Body Medical Devices: right ureteral stent, upper & lower dental implants Cardiac Surgery: No Cholecystectomy: Yes (2007 AND BILE DUCT) Eye Surgery: Yes ( BILATERAL CATARACT EXTRACT) Genitourinary Surgery: Yes (VASECTOMY,PROSTATECTOMY, right ureteral stent placement) Joint Replacement: Yes (BILATERAL KNEES ) Oral Surgery: Yes ( DENTAL IMPLANTS; TONSILLECTOMY) Pacemaker: No Thoracic Surgery: No Tonsillectomy: Yes (1944) Other Surgery: Yes Social History Alcohol Use: Yes (weekly wine) Tobacco Use: No Substance Use: No Allergies-Medications (Allergen,Severity, Reaction): Coded Allergies: Sulfa (Sulfonamide Antibiotics) (Unverified Allergy, Severe, 12/02/17) penicillin G (Unverified Allergy, Severe, 12/02/17) Reported Meds & Prescriptions Reported Meds & Active Scripts Active Walker with Front Wheels (Device) 1 Mis Mis 1 Ea .ROUTE DIRECTED Reported Probiotic (Saccharomyces Boulardii) 250 Mg Cap 250 Mg PO BID [Magtein] 1 Cap PO DAILY Miralax Powder (Polyethylene Glycol 3350 Powder) 17 Gm Powd 17 Gm PO DAILY Mix and dissolve one measuring cap-ful (17 grams) in water or juice. Keflex (Cephalexin) 500 Mg Cap 500 Mg PO Q12H Vitamin B-12 (Cyanocobalamin) 1,000 Mcg Subl 1,000 Mcg SL DAILY Vitamin B-6 (Pyridoxine HCl) 100 Mg Tab 100 Mg PO DAILY Vitamin C Powder (Ascorbic Acid) 1 Pow Pow 1 Pack PO BID Vitamin D (Cholecalciferol) 2,000 Unit Cap 1 Cap PO HS Co Q-10 (Coenzyme Q10 (Ubidecarenone)) 200 Mg Cap 1 Cap PO DAILY Lisinopril 30 Mg Tab 30 Mg PO DAILY Donepezil 10 Mg Tab 10 Mg PO DAILY Review of Systems Except as stated in HPI: all other systems reviewed are Neg Physical Exam Narrative GENERAL: Pleasant elderly male patient, sitting up in bed in no acute distress. SKIN: Focused skin assessment warm/dry. HEAD: Atraumatic. Normocephalic. EYES: Pupils equal and round. No scleral icterus. No injection or drainage. ENT: No nasal bleeding or discharge. Mucous membranes pink and moist. NECK: Trachea midline. No JVD. CARDIOVASCULAR: Regular rate and rhythm. 2/6 systolic murmur appreciated. RESPIRATORY: No accessory muscle use. Clear to auscultation. Breath sounds equal bilaterally. GASTROINTESTINAL: Abdomen soft, non-tender, nondistended. Hepatic and splenic margins not palpable. MUSCULOSKELETAL: No obvious deformities. No clubbing. No cyanosis. No edema. NEUROLOGICAL: Awake and alert. No obvious cranial nerve deficits. Motor grossly within normal limits. Normal speech. PSYCHIATRIC: Appropriate mood and affect Data Data Last Documented VS Vital Signs Date Time Temp Pulse Resp B/P (MAP) Pulse Ox O2 Delivery O2 Flow Rate FiO2 12/02/17 14:05 97.8 83 14 145/85 (105) 96 Orders Orders Hip, Uni(Ap&Lat) W Ap Pelvis (12/02/17 ) Ct Hip W/O Contrast (12/02/17 ) Femur (Ap & Lat/2vws) (12/02/17 ) Iv Access Insert/Monitor (12/02/17 17:04) Complete Blood Count With Diff (12/02/17 17:04) Basic Metabolic Panel (Bmp) (12/02/17 17:04) Coag Profile (12/02/17 17:04) Electrocardiogram (12/02/17 ) Chest, Single Ap (12/02/17 ) Morphine Inj (Morphine Inj) (12/02/17 17:15) Ondansetron Inj (Zofran Inj) (12/02/17 17:15) Urinalysis - C+S If Indicated (12/02/17 18:12) Bailey's Traction (12/02/17 ) Npo After Midnight W/ Po Meds (12/02/17 Dinner) Consult Orthopedic (12/02/17 ) (Hub Use Only)Inp Phy Cons/Ref (12/02/17 ) Labs Laboratory Tests Test 12/02/17 17:25 White Blood Count 11.7 TH/MM3 Red Blood Count 4.17 MIL/MM3 Hemoglobin 12.6 GM/DL Hematocrit 35.9 % Mean Corpuscular Volume 86.1 FL Mean Corpuscular Hemoglobin 30.1 PG Mean Corpuscular Hemoglobin Concent 35.0 % Red Cell Distribution Width 13.6 % Platelet Count 278 TH/MM3 Mean Platelet Volume 6.9 FL Neutrophils (%) (Auto) 75.9 % Lymphocytes (%) (Auto) 12.4 % Monocytes (%) (Auto) 9.4 % Eosinophils (%) (Auto) 1.8 % Basophils (%) (Auto) 0.5 % Neutrophils # (Auto) 8.9 TH/MM3 Lymphocytes # (Auto) 1.5 TH/MM3 Monocytes # (Auto) 1.1 TH/MM3 Eosinophils # (Auto) 0.2 TH/MM3 Basophils # (Auto) 0.1 TH/MM3 CBC Comment DIFF FINAL Differential Comment Prothrombin Time 10.8 SEC Prothromb Time International Ratio 1.1 RATIO Activated Partial Thromboplast Time 26.6 SEC Blood Urea Nitrogen 15 MG/DL Creatinine 0.86 MG/DL Random Glucose 92 MG/DL Calcium Level 8.5 MG/DL Sodium Level 130 MEQ/L Potassium Level 4.6 MEQ/L Chloride Level 99 MEQ/L Carbon Dioxide Level 24.6 MEQ/L Anion Gap 6 MEQ/L Estimat Glomerular Filtration Rate 86 ML/MIN MDM Medical Decision Making Medical Screen Exam Complete: Yes Emergency Medical Condition: Yes Medical Record Reviewed: Yes Differential Diagnosis Fracture versus sprain versus contusion versus dislocation Narrative Course 82-year-old male presents to emergency department for evaluation right hip pain following a fall. Patient appears overall well. There is no shortening or rotation of the right lower extremity. X-ray imaging is complete and negative however patient is unable to ambulate without significant pain. He still does not want any pain control. CT imaging is ordered. Last Impressions Lower Extremity CT 12/02/17 0000 Signed Impressions: Service Date/Time: Saturday, December 02, 2017 15:27 - CONCLUSION: Subtle impacted fracture of the femoral neck. Seen best on series 3 image 31 and series 4 images 30 and 31. Akash Frost MD FACR Hip and Pelvis X-Ray 12/02/17 0000 Signed Impressions: Service Date/Time: Thursday, December 02, 2017 14:23 - CONCLUSION: 1. No acute fracture. 2. Postsurgical changes suggestive of prior prostatectomy with bilateral side wall dieudonne dissection, hernia mesh repair and vasectomy. 3. Severe degenerative disc disease at L4-5. Milo Shultz MD Femur X-Ray 12/02/17 0000 Signed Impressions: Service Date/Time: Saturday, December 02, 2017 15:42 - CONCLUSION: Negative for fracture. Akash Frost MD FACR Chest X-Ray 12/02/17 0000 Signed Impressions: Service Date/Time: Saturday, December 02, 2017 17:19 - CONCLUSION: No acute disease. Akash Frost MD FACR I have discussed the patient with Dr. Merino, orthopedic surgeon on-call. He requests nothing by mouth after midnight, 5 pounds Bailey's traction, and UA. A call was placed to [facility] medical team for admission. Plan is discussed with the patient and his family at bedside. They are in agreement with this plan of care. Diagnosis Primary Impression: Hip fracture Qualified Codes: S72.001A - Fracture of unspecified part of neck of right femur, initial encounter for closed fracture Admitting Information Admitting Physician Requests: Admit Condition: Stable Austin Sanchezirvin VALLEJO Dec 02, 2017 14:48
--- NOTE | 2017-12-02 14:58 | RADRPT ---
EXAM DATE/TIME: 12/02/2017 14:23 [facility] COMPARISON: No previous studies available for comparison. INDICATIONS : Fell today. MEDICAL HISTORY : Prostate cancer SURGICAL HISTORY : surgery for prostate cancer ENCOUNTER: Initial ACUITY: 1 day PAIN SCORE: 1/10 LOCATION: Right hip and pelvis FINDINGS: Examination of the right hip was performed with AP Pelvis. Cortical margins are all intact with no ac andreafski fracture. Multiple surgical clips overlying the pubic bone likely represents prostatectomy consid ering the patient's history. More lateral clips are characteristic of pelvic side wall dieudonne dissecti on. There is also findings of mesh repair with multiple metallic coiled density is projecting over th e lower abdomen. Surgical clips inferior to the ischia probably represent prior vasectomy. Degenerati ve disc disease at L4-5 with marked loss of disc height and vacuum disc phenomena CONCLUSION: 1. No acute fracture. 2. Postsurgical changes suggestive of prior prostatectomy with bilateral side wall dieudonne dissection, hernia mesh repair and vasectomy. 3. Severe degenerative disc disease at L4-5. Milo Shultz MD on December 02, 2017 at 14:53 Board Certified Radiologist. This report was verified electronically.
--- NOTE | 2017-12-02 15:59 | RADRPT ---
EXAM DATE/TIME: 12/02/2017 15:42 [facility] COMPARISON: No previous studies available for comparison. INDICATIONS : Right femur pain after fall. MEDICAL HISTORY : None. SURGICAL HISTORY : None. ENCOUNTER: Initial ACUITY: 1 day PAIN SCORE: 5/10 LOCATION: Right proximal femur. FINDINGS: Degenerative changes about the hip are previous pelvic surgery. Moderate vascular calcifications. T otal knee arthroplasty. Negative for fracture. CONCLUSION: Negative for fracture. Akash Frost MD FACR on December 02, 2017 at 15:56 Board Certified Radiologist. This report was verified electronically.
--- NOTE | 2017-12-02 16:56 | RADRPT ---
EXAM DATE/TIME: 12/02/2017 15:27 [facility] COMPARISON: No previous studies available for comparison. INDICATIONS : Right hip pain after fall. RADIATION DOSE: 16.30 CTDIvol (mGy) MEDICAL HISTORY : Hypertension. SURGICAL HISTORY : Appendectomy. Cholecystectomy. ENCOUNTER: Initial ACUITY: 1 day PAIN SCALE: 5/10 LOCATION: Right pelvis TECHNIQUE: Volumetric scanning of the hip was performed. Using automated exposure control and adjustment of the mA and/or kV according to patient size, radiation dose was kept as low as reasonably achievable to o btain optimal diagnostic quality images. DICOM format image data is available electronically for rev iew and comparison. FINDINGS: CT scan shows they subtle impacted fracture of the femoral neck into the femoral head. Alignment is reasonably anatomic. The acetabulum is intact The ilium and issue an are intact. Mild degenerative changes about the left hip Evidence for previous pelvic surgery. CONCLUSION: Subtle impacted fracture of the femoral neck. Seen best on series 3 image 31 and series 4 images 30 and 31. Akash Frost MD FACR on December 02, 2017 at 16:49 Board Certified Radiologist. This report was verified electronically.
--- NOTE | 2017-12-02 17:02 | PD ---
Physical Exam Date Seen by Provider: Dec 02, 2017 Narrative Patient presents with a right hip injury. He cannot bear weight on his hip. Data Data Last Documented VS Vital Signs Date Time Temp Pulse Resp B/P (MAP) Pulse Ox O2 Delivery O2 Flow Rate FiO2 12/02/17 14:05 97.8 83 14 145/85 (105) 96 Orders Orders Hip, Uni(Ap&Lat) W Ap Pelvis (12/02/17 ) Ct Hip W/O Contrast (12/02/17 ) Femur (Ap & Lat/2vws) (12/02/17 ) MDM Supervised Visit with [facility]IVKA: Yes Narrative Course I, Dr. Arzate, have reviewed the advance practice practitioner's documentation and am in agreement, met with the patient face to face, made the diagnosis, and the medical decision making was done by me. *My assessment and Findings: Very pleasant gentleman who reports only mild pain at this point. Last Impressions Hip and Pelvis X-Ray 12/02/17 0000 Signed Impressions: Service Date/Time: Saturday, December 02, 2017 14:23 - CONCLUSION: 1. No acute fracture. 2. Postsurgical changes suggestive of prior prostatectomy with bilateral side wall dieudonne dissection, hernia mesh repair and vasectomy. 3. Severe degenerative disc disease at L4-5. Milo Shultz MD Femur X-Ray 12/02/17 0000 Signed Impressions: Service Date/Time: Saturday, December 02, 2017 15:42 - CONCLUSION: Negative for fracture. Akash Frost MD FACR Orthopedics will be consulted. Please see Evelyn Sanchez NP's note for results of laboratory and radiographic evaluation, ED course, final diagnosis and disposition Etta Arzate MD Dec 02, 2017 17:02
[2017-12-02] MEDS ORDERED: MORPHINE SULFATE 2 MG/ML INJ IV PUSH ONE (17:15)
[2017-12-02] MEDS ORDERED: ONDANSETRON HCL 4 MG/2 ML VIAL IV PUSH ONE (17:15)
--- NOTE | 2017-12-02 17:29 | RADRPT ---
EXAM DATE/TIME: 12/02/2017 17:19 [facility] COMPARISON: CHEST SINGLE AP, December 05, 2016, 12:46. INDICATIONS : Evaluate for pneumonia, pneumothorax, or communicable disease. Pre op femur surgery. MEDICAL HISTORY : None. SURGICAL HISTORY : None. ENCOUNTER: Initial ACUITY: 1 day PAIN SCORE: 0/10 LOCATION: Bilateral chest FINDINGS: A single view of the chest demonstrates the lungs to be symmetrically aerated without evidence of mas s, infiltrate or effusion. The cardiomediastinal contours are unremarkable. Osseous structures are intact. CONCLUSION: No acute disease. Akash Frost MD FACR on December 02, 2017 at 17:27 Board Certified Radiologist. This report was verified electronically.
[2017-12-02 17:54] LABS: AUTOMATED NEUTROPHIL # 8.9 TH/MM3 (1.8-7.7); BASOPHIL # 0.1 TH/MM3 (0-0.2); BASOPHIL % 0.5 % (0.0-2.0); EOSINOPHIL # 0.2 TH/MM3 (0-0.4); EOSINOPHIL % 1.8 % (0.0-4.0); HEMATOCRIT 35.9 % (39.0-51.0); HEMOGLOBIN 12.6 GM/DL (13.0-17.0); LYMPH % 12.4 % (9.0-44.0); LYMPHOCYTE # 1.5 TH/MM3 (1.0-4.8); MEAN CELL VOLUME 86.1 FL (80.0-100.0); MEAN CORPUSCULAR HEMOGLOBIN 30.1 PG (27.0-34.0); MEAN PLATELET VOLUME 6.9 FL (7.0-11.0); MONO % 9.4 % (0.0-8.0); MONOCYTE # 1.1 TH/MM3 (0-0.9); NEUT % 75.9 % (16.0-70.0); PLATELET COUNT 278 TH/MM3 (150-450); RED BLOOD COUNT 4.17 MIL/MM3 (4.50-5.90); RED CELL DISTRIBUTION WIDTH 13.6 % (11.6-17.2); WHITE BLOOD COUNT 11.7 TH/MM3 (4.0-11.0)
[2017-12-02 18:07] LABS: INTERNATIONAL NORMALIZED RATIO 1.1 RATIO; PROTHROMBIN TIME - PATIENT 10.8 SEC (9.8-11.6)
[2017-12-02 18:14] LABS: BICARBONATE 24.6 MEQ/L (21.0-32.0); CALCIUM 8.5 MG/DL (8.5-10.1); CREATININE 0.86 MG/DL (0.60-1.30)
[2017-12-02 19:25] VITALS: BP 148/76; PULSE 78; RESP 18; O2SAT 99
[2017-12-02] MEDS ORDERED: ONDANSETRON HCL 4 MG/2 ML VIAL IVP PRN (19:45)
[2017-12-02] MEDS ORDERED: SODIUM CHLORIDE 0.9% FLUSH 10 ML FLUSH IV FLUSH PRN (19:45)
[2017-12-02] MEDS ORDERED: NALOXONE HCL 0.4 MG/ML AMP IV PUSH PRN (19:45)
[2017-12-02] MEDS ORDERED: MORPHINE SULFATE 2 MG/ML INJ IV PUSH PRN (19:45)
[2017-12-02 20:27] LABS: BILIRUBIN, URINE NEG (NEG); BLOOD, URINE NEG (NEG); GLUCOSE,URINE NEG (NEG); KETONE, URINE TRACE mg/dL (NEG); NITRITE,URINE NEG (NEG); PH, URINE 6.5 (5.0-8.5); URINE COLOR YELLOW (YELLW/STRAW); URINE LEUKOCYTE ESTERASE NEG (NEG)
[2017-12-02] MEDS: SODIUM CHLORIDE 0.9% FLUSH 10 ML FLUSH IV FLUSH SCH (21:00)
[2017-12-02 21:42] VITALS: BP 132/75; PULSE 78; RESP 16; TEMP 99.1; O2SAT 94; O2SAT 95
[2017-12-03] VITALS (9 sets, daily range): BP systolic 121–145; BP diastolic 75–102; PULSE 71–88; RESP 17–18; TEMP 96.5–98.8; O2SAT 91–98
--- NOTE | 2017-12-03 03:35 | HHI.HP ---
HPI Service [facility] Primary Care Physician Anupam Penn MD Admission Diagnosis R HIP FX Diagnoses: Travel History International Travel<30 Days: No Contact w/Intl Traveler <30 Da: No Traveled to Known Affected Are: No History of Present Illness states he was at a home he was there picking up his own arrangements it was facility, states he elligible for that he states he just tripped and fell tripped on metal threshold fell forward wtih his right knee did not hit head no syncope no premonitory symptoms prior to fall Review of Systems Except as stated in HPI: all other systems reviewed are Neg Past Family Social History Past Medical History htn prostate cancer 10yrs ago, had sx, no chemo or radiation hx of herpes encephalitis Past Surgical History both knees replaced- one of them more than twice prostatectomy states many other surgeries Allergies: Coded Allergies: Sulfa (Sulfonamide Antibiotics) (Unverified Allergy, Severe, 12/02/17) penicillin G (Unverified Allergy, Severe, 12/02/17) Family History none that he remembers Social History lives with his girlfriend quit smoking 50yrs ago drinks etoh socially no drugs abuse Physical Exam Vital Signs Vital Signs Date Time Temp Pulse Resp B/P (MAP) Pulse Ox O2 Delivery O2 Flow Rate FiO2 12/02/17 21:42 99.1 78 16 132/75 (94) 95 12/02/17 21:28 12/02/17 19:25 78 18 148/76 (100) 99 Room Air 12/02/17 14:05 97.8 83 14 145/85 (105) 96 Physical Exam GENERAL: This is a well-nourished, well-developed patient, in no apparent distress. SKIN: No rashes, ecchymoses or lesions. Cool and dry. HEAD: Atraumatic. Normocephalic. No temporal or scalp tenderness. EYES: Extraocular motions intact. No scleral icterus. No injection or drainage. ENT: Nose without bleeding, purulent drainage or septal hematoma.Airway patent. NECK: Trachea midline. No JVD Supple, nontender, no meningeal signs. CARDIOVASCULAR: Regular rate and rhythm without murmurs, gallops, or rubs. RESPIRATORY: Clear to auscultation. Breath sounds equal bilaterally. No wheezes , rales, or rhonchi. GASTROINTESTINAL: Abdomen soft, non-tender, nondistended. No guarding. MUSCULOSKELETAL: Extremities without clubbing, cyanosis, or edema. No calf tenderness. RIght LE in traction NEUROLOGICAL: Awake and alert. Motor and sensory grossly within normal limits. Normal speech Laboratory Laboratory Tests Test 12/02/17 17:25 12/02/17 19:20 White Blood Count 11.7 Red Blood Count 4.17 Hemoglobin 12.6 Hematocrit 35.9 Mean Corpuscular Volume 86.1 Mean Corpuscular Hemoglobin 30.1 Mean Corpuscular Hemoglobin Concent 35.0 Red Cell Distribution Width 13.6 Platelet Count 278 Mean Platelet Volume 6.9 Neutrophils (%) (Auto) 75.9 Lymphocytes (%) (Auto) 12.4 Monocytes (%) (Auto) 9.4 Eosinophils (%) (Auto) 1.8 Basophils (%) (Auto) 0.5 Neutrophils # (Auto) 8.9 Lymphocytes # (Auto) 1.5 Monocytes # (Auto) 1.1 Eosinophils # (Auto) 0.2 Basophils # (Auto) 0.1 CBC Comment DIFF FINAL Differential Comment Prothrombin Time 10.8 Prothromb Time International Ratio 1.1 Activated Partial Thromboplast Time 26.6 Blood Urea Nitrogen 15 Creatinine 0.86 Random Glucose 92 Calcium Level 8.5 Sodium Level 130 Potassium Level 4.6 Chloride Level 99 Carbon Dioxide Level 24.6 Anion Gap 6 Estimat Glomerular Filtration Rate 86 Urine Color YELLOW Urine Turbidity CLEAR Urine pH 6.5 Urine Specific [place] 1.013 Urine Protein NEG Urine Glucose (UA) NEG Urine Ketones TRACE Urine Occult Blood NEG Urine Nitrite NEG Urine Bilirubin NEG Urine Urobilinogen LESS THAN 2.0 Urine Leukocyte Esterase NEG Urine RBC 2 Urine WBC LESS THAN 1 Microscopic Urinalysis Comment CULT NOT INDICATED Result Diagram: 12/02/17 1725 12/02/17 1725 Imaging Last 48 hours Impressions Lower Extremity CT 12/02/17 0000 Signed Impressions: Service Date/Time: Saturday, December 02, 2017 15:27 - CONCLUSION: Subtle impacted fracture of the femoral neck. Seen best on series 3 image 31 and series 4 images 30 and 31. Akash Frost MD FACR Hip and Pelvis X-Ray 12/02/17 0000 Signed Impressions: Service Date/Time: Saturday, December 02, 2017 14:23 - CONCLUSION: 1. No acute fracture. 2. Postsurgical changes suggestive of prior prostatectomy with bilateral side wall dieudonne dissection, hernia mesh repair and vasectomy. 3. Severe degenerative disc disease at L4-5. Milo Shultz MD Femur X-Ray 12/02/17 0000 Signed Impressions: Service Date/Time: Saturday, December 02, 2017 15:42 - CONCLUSION: Negative for fracture. Akash Frost MD FACR Chest X-Ray 12/02/17 0000 Signed Impressions: Service Date/Time: Saturday, December 02, 2017 17:19 - CONCLUSION: No acute disease. Akash Frost MD FACR Caprini VTE Risk Assessment Caprini VTE Risk Assessment: Mod/High Risk (score >= 2) Caprini Risk Assessment Model Point Value = 1 Point Value = 2 Point Value = 3 Point Value = 5 Age 41-60 Minor surgery BMI > 25 kg/m2 Swollen legs Varicose veins or History of unexplained or recurrent spontaneous Oral contraceptives or hormone replacement Sepsis (< 1 month) Serious lung disease, including pneumonia (< 1 month) Abnormal pulmonary function Acute myocardial infarction Congestive heart failure (< 1 month) History of inflammatory bowel disease Medical patient at bed rest Age 61-74 Arthroscopic surgery Major open surgery (> 45 min) Laparoscopic surgery (> 45 min) Malignancy Confined to bed (> 72 hours) Immobilizing plaster cast Central venous access Age >= 75 History of VTE Family history of VTE Factor V Leiden Prothrombin [id number] Lupus anticoagulant Anticardiolipin antibodies Elevated serum homocysteine Heparin-induced thrombocytopenia Other congenital or acquired thrombophilia Stroke (< 1 month) Elective arthroplasty Hip, pelvis, or leg fracture Acute spinal cord injury (< 1 month) Prophylaxis Regimen Total Risk Factor Score Risk Level Prophylaxis Regimen 0-1 Low Early ambulation 2 Moderate Order ONE of the following: *Sequential Compression Device (SCD) *Heparin 5000 units SQ BID 3-4 Higher Order ONE of the following medications: *Heparin 5000 units SQ TID *Enoxaparin/Lovenox 40 mg SQ daily (WT < 150 kg, CrCl > 30 mL/min) *Enoxaparin/Lovenox 30 mg SQ daily (WT < 150 kg, CrCl > 10-29 mL/min) *Enoxaparin/Lovenox 30 mg SQ BID (WT < 150 kg, CrCl > 30 mL/min) AND/OR *Sequential Compression Device (SCD) 5 or more Highest Order ONE of the following medications: *Heparin 5000 units SQ TID (Preferred with Epidurals) *Enoxaparin/Lovenox 40 mg SQ daily (WT < 150 kg, CrCl > 30 mL/min) *Enoxaparin/Lovenox 30 mg SQ daily (WT < 150 kg, CrCl > 10-29 mL/min) *Enoxaparin/Lovenox 30 mg SQ BID (WT < 150 kg, CrCl > 30 mL/min) AND *Sequential Compression Device (SCD) Assessment and Plan Assessment and Plan Impression: Right femoral neck fracture. Status post fall htn prostate cancer 10yrs ago, had sx, no chemo or radiation hx of herpes encephalitis Will mild dementia GERD Physician Certification Order for Inpatient Services The services are ordered in accordance with Medicare regulations or non- Medicare payer requirements, as applicable. In the case of services not specified as inpatient-only, they are appropriately provided as inpatient services in accordance with the 2-midnight benchmark. days is the estimated time the patient will need to remain in the hospital, assuming treatment plan goals are met and no additional complications. Jennifer Siddiqi MD Dec 03, 2017 03:35
[2017-12-03] MEDS ORDERED: CHLORHEXIDINE GLUCONATE 2 % 1 PACK (2 CLOTHS) TOPICAL PRN ×2 (03:45→13:45)
[2017-12-03] MEDS ORDERED: SODIUM CHLORID 0.9% 500 ML IV PRN ×2 (03:45→13:45)
[2017-12-03] MEDS ORDERED: POVIDONE IODINE 5% (ANTISEPSIS KIT) 4 APPLICATIONS EACH NARE PRN ×2 (03:45→13:45)
[2017-12-03] MEDS ORDERED: METOPROLOL TARTRATE 25 MG TAB PO PRN ×2 (03:45→13:45)
[2017-12-03] MEDS ORDERED: LACTATED RINGER'S 1000 ML IV PRN ×2 (03:45→13:45)
[2017-12-03] MEDS ORDERED: INSULIN HUMAN REGULAR 1,000 UNITS/10 ML VIAL SQ PRN (03:45)
[2017-12-03 07:07] LABS: AUTOMATED NEUTROPHIL # 5.7 TH/MM3 (1.8-7.7); BASOPHIL % 0.5 % (0.0-2.0); EOSINOPHIL # 0.3 TH/MM3 (0-0.4); EOSINOPHIL % 3.4 % (0.0-4.0); HEMATOCRIT 35.6 % (39.0-51.0); HEMOGLOBIN 12.4 GM/DL (13.0-17.0); LYMPH % 12.8 % (9.0-44.0); MEAN CELL VOLUME 85.4 FL (80.0-100.0); MEAN CORPUSCULAR HEMOGLOBIN 29.8 PG (27.0-34.0); MEAN CORPUSCULAR HGB CONC 34.9 % (32.0-36.0); MEAN PLATELET VOLUME 6.4 FL (7.0-11.0); MONO % 12.7 % (0.0-8.0); NEUT % 70.6 % (16.0-70.0); PLATELET COUNT 250 TH/MM3 (150-450); RED BLOOD COUNT 4.17 MIL/MM3 (4.50-5.90); RED CELL DISTRIBUTION WIDTH 13.9 % (11.6-17.2); WHITE BLOOD COUNT 8.1 TH/MM3 (4.0-11.0)
[2017-12-03 07:30] LABS: BICARBONATE 23.5 MEQ/L (21.0-32.0); CALCIUM 8.3 MG/DL (8.5-10.1); CREATININE 0.76 MG/DL (0.60-1.30)
[2017-12-03] MEDS: SODIUM CHLORIDE 0.9% FLUSH 10 ML FLUSH IV FLUSH SCH ×2 (09:00→21:00)
--- NOTE | 2017-12-03 09:23 | PD.CONS ---
HPI Service Orthopedic Surgeons Consult Requested By Emergency room staff Reason for Consult Fracture of the right hip Primary Care Physician Anupam Penn MD Admission Diagnosis R HIP FX Diagnoses: Chief Complaint: Right hip pain after fall and inability to cannulate History of Present Illness This patient is an 82-year-old male who slipped and fell yesterday. He landed on his right hip. He was unable to amble it was brought by E back to the hospital. X-rays and CT scan showed evidence of an impacted right femoral neck fracture. The fractures in the subcapital region of the right femoral neck. I have been asked to the patient in consultation regarding the same Past Family Social History Past Medical History htn prostate cancer 10yrs ago, had sx, no chemo or radiation hx of herpes encephalitis Past Surgical History both knees replaced- one of them more than twice prostatectomy states many other surgeries Allergies: Coded Allergies: Sulfa (Sulfonamide Antibiotics) (Unverified Allergy, Severe, 12/02/17) penicillin G (Unverified Allergy, Severe, 12/02/17) Active Ordered Medications Current Medications Medications (Trade) Dose Ordered Sig/Miguel Route Start Time Stop Time Status Last Admin (NS Flush) 2 ml UNSCH PRN IV FLUSH 12/02/17 19:45 (NS Flush) 2 ml BID IV FLUSH 12/02/17 21:00 (Zofran Inj) 4 mg Q6H PRN IVP 12/02/17 19:45 (Narcan Inj) 0.4 mg UNSCH PRN IV PUSH 12/02/17 19:45 (Morphine Inj) 2 mg Q3H PRN IV PUSH 12/02/17 19:45 Lactated Ringer's 1,000 ml @ 30 mls/hr Q24H PRN IV 12/03/17 03:45 12/06/17 03:44 Sodium Chloride 500 ml @ 30 mls/hr [id number] PRN IV 12/03/17 03:45 12/06/17 03:44 (Lopressor) 25 mg [employer] PRN PO 12/03/17 03:45 12/06/17 03:44 (Betadine 5% Antisepsis Kit) 1 applic [employer]GER PRN EACH NARE 12/03/17 03:45 12/06/17 03:44 (Chlorhexidine 2% Cloth) 3 pack [employer]GER PRN TOPICAL 12/03/17 03:45 12/06/17 03:44 (NovoLIN R INJ) See Protocol Table ... [employer] COMM[employer] MA[employer]GER PRN SQ 12/03/17 03:45 12/06/17 03:44 Reported Meds & Active Scripts Active Walker with Front Wheels (Device) 1 Mis Mis 1 Ea .ROUTE DIRECTED Reported Probiotic (Saccharomyces Boulardii) 250 Mg Cap 250 Mg PO BID [Magtein] 1 Cap PO DAILY Miralax Powder (Polyethylene Glycol 3350 Powder) 17 Gm Powd 17 Gm PO DAILY Mix and dissolve one measuring cap-ful (17 grams) in water or juice. Keflex (Cephalexin) 500 Mg Cap 500 Mg PO Q12H Vitamin B-12 (Cyanocobalamin) 1,000 Mcg Subl 1,000 Mcg SL DAILY Vitamin B-6 (Pyridoxine HCl) 100 Mg Tab 100 Mg PO DAILY Vitamin C Powder (Ascorbic Acid) 1 Pow Pow 1 Pack PO BID Vitamin D (Cholecalciferol) 2,000 Unit Cap 1 Cap PO HS Co Q-10 (Coenzyme Q10 (Ubidecarenone)) 200 Mg Cap 1 Cap PO DAILY Lisinopril 30 Mg Tab 30 Mg PO DAILY Donepezil 10 Mg Tab 10 Mg PO DAILY Family History none that he remembers Social History lives with his girlfriend quit smoking 50yrs ago drinks etoh socially no drugs abuse Physical Exam Vital Signs Vital Signs Date Time Temp Pulse Resp B/P (MAP) Pulse Ox O2 Delivery O2 Flow Rate FiO2 12/03/17 08:53 98.0 88 18 145/75 (98) 91 12/03/17 04:23 98.5 78 18 136/96 (109) 91 12/03/17 01:00 98.8 87 18 139/87 (104) 98 12/02/17 21:42 99.1 78 16 132/75 (94) 95 12/02/17 21:28 12/02/17 19:25 78 18 148/76 (100) 99 Room Air 12/02/17 14:05 97.8 83 14 145/85 (105) 96 Physical Exam HEENT: Normocephalic atraumatic pupils equal round reactive. NECK: Supple. No abnormal masses. Full range of motion. CHEST: Clear to auscultation with no rales or rhonchi's or wheezes. HEART: Regular rate and rhythm. No murmurs. ABDOMEN: Soft, nontender, no masses. Normal active bowel sounds. GENITOURINARY: Deferred. MUSCLE skeletal: Right hip slightly externally rotated. Mild ecchymosis. Mild swelling. Dorsalis pedis and 1+. Sensation is normal. No abnormal swelling below the knee Laboratory Laboratory Tests Test 12/02/17 17:25 12/02/17 19:20 12/03/17 06:15 White Blood Count 11.7 8.1 Red Blood Count 4.17 4.17 Hemoglobin 12.6 12.4 Hematocrit 35.9 35.6 Mean Corpuscular Volume 86.1 85.4 Mean Corpuscular Hemoglobin 30.1 29.8 Mean Corpuscular Hemoglobin Concent 35.0 34.9 Red Cell Distribution Width 13.6 13.9 Platelet Count 278 250 Mean Platelet Volume 6.9 6.4 Neutrophils (%) (Auto) 75.9 70.6 Lymphocytes (%) (Auto) 12.4 12.8 Monocytes (%) (Auto) 9.4 12.7 Eosinophils (%) (Auto) 1.8 3.4 Basophils (%) (Auto) 0.5 0.5 Neutrophils # (Auto) 8.9 5.7 Lymphocytes # (Auto) 1.5 1.0 Monocytes # (Auto) 1.1 1.0 Eosinophils # (Auto) 0.2 0.3 Basophils # (Auto) 0.1 0.0 CBC Comment DIFF FINAL DIFF FINAL Differential Comment Prothrombin Time 10.8 Prothromb Time International Ratio 1.1 Activated Partial Thromboplast Time 26.6 Blood Urea Nitrogen 15 12 Creatinine 0.86 0.76 Random Glucose 92 98 Calcium Level 8.5 8.3 Sodium Level 130 132 Potassium Level 4.6 3.8 Chloride Level 99 101 Carbon Dioxide Level 24.6 23.5 Anion Gap 6 8 Estimat Glomerular Filtration Rate 86 99 Urine Color YELLOW Urine Turbidity CLEAR Urine pH 6.5 Urine Specific [place] 1.013 Urine Protein NEG Urine Glucose (UA) NEG Urine Ketones TRACE Urine Occult Blood NEG Urine Nitrite NEG Urine Bilirubin NEG Urine Urobilinogen LESS THAN 2.0 Urine Leukocyte Esterase NEG Urine RBC 2 Urine WBC LESS THAN 1 Microscopic Urinalysis Comment CULT NOT INDICATED Result Diagram: 12/03/1715 12/03/1715 Imaging X-ray reviewed and CT scan reviewed and review of the radiologist's interpretation shows evidence of a right hip subcapital impacted femoral neck fracture without significant displacement Assessment & Plan Assessment and Plan Right subcapital femoral neck fracture, impacted. PLAN: Surgery: Open treatment internal fixation with multiple screws. Consent: There are risks with surgery including infection, bleeding, loss of motion, continued pain, need for further surgery, avascular necrosis, collapse, conversion to total hip replacement surgery. The patient understands these issues and wishes to proceed forward with surgery as outlined above Surgery today. Final plans pending Alex Gill MD Dec 03, 2017 09:23
[2017-12-03] MEDS ORDERED: GENTAMICIN SULFATE 80 MG/2 ML VIAL ONE (11:52)
[2017-12-03] MEDS ORDERED: DEXAMETHASONE SOD PHOS 4 MG/ML VIAL IV ONE (12:00)
[2017-12-03] MEDS ORDERED: PROPOFOL 200 MG/20 ML AMP IV ONE (12:00)
[2017-12-03] MEDS ORDERED: ONDANSETRON HCL 4 MG/2 ML VIAL IV ONE (12:00)
[2017-12-03] MEDS ORDERED: ePHEDrine/NS 25 MG/5 ML SYRINGE IV ONE (12:00)
[2017-12-03] MEDS ORDERED: LIDOCAINE HCL 1% PF 5 ML SYRINGE OTHER ONE (12:00)
[2017-12-03] MEDS ORDERED: GLYCOPYRROLATE 1 MG/5 ML SYRINGE IV PUSH ONE (12:00)
[2017-12-03] MEDS ORDERED: ROCURONIUM INJ 50 MG/5 ML SYRINGE IV PUSH ONE (12:00)
[2017-12-03] MEDS ORDERED: NEOSTIGMINE 5 MG/5 ML SYRINGE IV PUSH ONE (12:00)
[2017-12-03] MEDS ORDERED: ceFAZolin 2 GM PREMIX 50 ML ONE (13:12)
--- NOTE | 2017-12-03 14:16 | PD.OP ---
cc: Alex Gill MD Operative Report Right femoral neck fracture, subcapital, impacted Postoperative Diagnosis: Same Procedure: Open treatment internal fixation right hip fracture with multiple skin related screws Anesthesia: Gen. Surgeon: Alex Gill Private Security Guard(s): FAUSTINA Stephens Operation and Findings: EBL: 100 cc INDICATION: This patient is a 82-year-old white male who fell yesterday. He has an impacted right subcapital femoral neck fracture. He presents for surgical treatment. NOTE: Milli Stephens PA-C was present for the entire surgical procedure as my mechanic assistant. In my medical opinion her skill and care was necessary for proper management of this patient PROCEDURE: The patient was brought to the operating room and anesthetized in the supine position. He was placed on the fracture table with both legs held extended. The opposite leg was in the well leg bhakta. The hip fracture was reduced anatomically. The hip and leg was scrubbed with alcohol followed by Hibiclens followed by ChloraPrep. A timeout was done and antibiotics were given within 1 hour time window. A longitudinal incision was made over the lateral aspect of the hip. This is carried down through skin and subcutaneous tissue. The fascia was opened longitudinally. Deep retractors allowed good visualization. Multiple guide pins were placed across the proximal femur across the neck of the femur. These were placed within the proper position in a parallel fashion into the femoral head. Overall alignment was satisfactory. Reduction was near anatomic. Each pin was measured and then the outer cortex drilled. Proper length 7.5mm ITS screws were advanced across the cannulated device and into the femoral head. Each screw had good position. Intraoperative x-rays were obtained. Alignment was satisfactory. No complication was noted. The wound was irrigated copiously. Hemostasis was controlled. The fascia was closed with interrupted Vicryl suture, subcutaneous tissue 2-0 Vicryl suture, skin with running intradermal 3-0 Vicryl followed by Steri-Strips and benzoin. A sterile dressing was applied The patient was awakened and taken to the recovery room in satisfactory condition. FINDINGS: There was evidence of his impacted subcapital femoral neck fracture. Screw position was satisfactory. No comp location was appreciated. Alex Gill MD Dec 03, 2017 14:15
[2017-12-03] MEDS ORDERED: Post-op Orders (for Pharmacy) XX ONE (14:30)
[2017-12-03] MEDS ORDERED: MORPHINE SULFATE 8 MG/ML INJ IM PRN (14:30)
[2017-12-03] MEDS ORDERED: TEMAZEPAM 15 MG CAP PO PRN (14:30)
[2017-12-03] MEDS ORDERED: MISCELLANEOUS PHARMACY INFORMATION XX ONE (14:30)
[2017-12-03] MEDS ORDERED: ACETAMINOPHEN/HYDROcodone 325 MG/7.5 MG TAB PO PRN ×2 (14:30)
[2017-12-03] MEDS ORDERED: ONDANSETRON HCL 4 MG/2 ML VIAL IVP PRN (14:30)
[2017-12-03] MEDS ORDERED: MISCELLANEOUS NURSING INFORMATION XX PRN (14:30)
[2017-12-03] MEDS ORDERED: ALUMINUM/MAGNESIUM/SIMETH 30 ML CUP PO PRN (14:30)
[2017-12-03] MEDS ORDERED: ACETAMINOPHEN 1000 MG/100 ML 100 ML IV ONE (14:37)
--- NOTE | 2017-12-03 14:46 | EKG ---
Date Performed: 12/02/2017 Time Performed: 17:38:20 PTAGE: 82 years EKG: Sinus rhythm NORMAL ECG PREVIOUS TRACING : 06/27/2015 22.42 Since the prior tracing, there has been no significant andre DOCTOR: Paxton Blanca Interpretating Date/Time 12/03/2017 14:38:10
[2017-12-03] MEDS: LACTATED RINGER'S 1000 ML INJ 1,000 ML IV SCH (15:26)
--- NOTE | 2017-12-03 17:04 | RADRPT ---
EXAM DATE/TIME: 12/03/2017 14:05 [place] COMPARISON: No previous studies available for comparison. INDICATIONS : Right hip repair with percutaneous screws. OR. MEDICAL HISTORY : None. SURGICAL HISTORY : None. ENCOUNTER: Initial ACUITY: 1 day PAIN SCORE: Non-responsive. LOCATION: Right hip FINDINGS: Compression screw fixation of the right femoral neck. Near-anatomic alignment. No additional fracture s. Hardware is well-positioned. CONCLUSION: 1. Status post compression screw fixation of the right femoral neck, as above. Geovanny Durand MD on December 03, 2017 at 17:01 Board Certified Radiologist. This report was verified electronically.
[2017-12-03] MEDS ORDERED: DO NOT ADM ANY ANTICOAGULANT DRUGS PRN (19:30)
[2017-12-03] MEDS: SENNOSIDES 8.6 MG TAB PO SCH (21:14)
[2017-12-03] MEDS: MAGNESIUM HYDROXIDE SUSP 30 ML CUP PO SCH (21:14)
[2017-12-04] VITALS (15 sets, daily range): BP systolic 106–139; BP diastolic 66–80; PULSE 74–91; RESP 16–18; TEMP 96.7–98.2; O2SAT 95–98
[2017-12-04] MEDS ORDERED: ENOXAPARIN SODIUM 30 MG/0.3 ML SYRINGE SQ SCH (02:30)
[2017-12-04 05:35] LABS: HEMATOCRIT 34.3 % (39.0-51.0); HEMOGLOBIN 11.9 GM/DL (13.0-17.0)
[2017-12-04] MEDS: LACTATED RINGER'S 1000 ML INJ 1,000 ML IV SCH ×2 (06:24→13:43)
--- NOTE | 2017-12-04 07:37 | PD.ORT.PN ---
Subjective Subjective Remarks No significant pain. Resting in bed comfortably. Before surgery, at home uses no external support. Out of the house, uses a cane Objective Vitals Vital Signs Date Time Temp Pulse Resp B/P (MAP) Pulse Ox O2 Delivery O2 Flow Rate FiO2 12/04/17 05:44 96.7 74 18 139/80 (99) 96 12/04/17 03:48 84 12/03/17 23:46 75 12/03/17 23:40 Nasal Cannula 2.00 12/03/17 23:00 96.7 86 18 121/84 (96) 97 12/03/17 20:43 77 12/03/17 19:24 97.1 71 18 138/78 (98) 98 12/03/17 16:46 96.5 80 17 144/89 (107) 98 12/03/17 16:00 98.5 68 18 135/60 (85) 99 Nasal Cannula 2 12/03/17 15:30 71 17 143/76 (98) 99 Nasal Cannula 2 12/03/17 15:15 79 20 130/76 (94) 98 Nasal Cannula 2 12/03/17 15:00 85 12 139/70 (93) 98 Nasal Cannula 2 12/03/17 14:45 72 18 136/80 (98) 98 Nasal Cannula 2 12/03/17 14:32 96.5 88 20 127/81 (96) 98 Nasal Cannula 4 12/03/17 09:59 75 12/03/17 08:53 98.0 88 18 145/75 (98) 91 I/O 12/03/17 12/03/17 12/03/17 12/04/17 12/04/17 12/04/17 07:00 15:00 23:00 07:00 15:00 23:00 Intake Total 700 ml 100 ml 360 ml Output Total 15 ml 250 ml Balance 685 ml 100 ml 110 ml Intake Oral 360 ml IV Total 100 ml Other 700 ml Output Urine Total 250 ml Estimated Blood Loss 15 ml # Voids 1 # Bowel Movements 0 Result Diagram: 12/04/17 0420 12/03/17 0615 Objective Remarks Dressing dry. No significant swelling. No calf tenderness. Neuro exam normal Assessment & Plan Assessment and Plan Right subcapital femoral neck fracture, impacted. Surgery: ORIF multiple screws, right hip: POD #1 PLAN: Toe-touch weight-bearing. Walker for ambulation. Probable discharge to home tomorrow. Follow-up in 2 weeks. [place] for pain. Lovenox 30 mg daily for 25 days Possible SNF if could not go home No dressing change. Alex Gill MD Dec 04, 2017 07:37
[2017-12-04] MEDS ORDERED: ENOX30P SQ (07:39)
[2017-12-04] MEDS ORDERED: HYDR-3580 PO (07:39)
[2017-12-04] MEDS: SODIUM CHLORIDE 0.9% FLUSH 10 ML FLUSH IV FLUSH SCH ×2 (09:00→21:14)
[2017-12-04] MEDS: MAGNESIUM HYDROXIDE SUSP 30 ML CUP PO SCH ×2 (10:09→21:13)
[2017-12-04] MEDS ORDERED: VITA2000 PO (12:29)
[2017-12-04] MEDS ORDERED: OILCAP (12:29)
[2017-12-04] MEDS ORDERED: ASCOPOW (12:32)
[2017-12-04] MEDS ORDERED: LISI30TA4 PO (12:32)
[2017-12-04] MEDS ORDERED: DOCU250C7 (13:05)
[2017-12-04] MEDS ORDERED: ACETAMINOPHEN/HYDROcodone 325 MG/7.5 MG TAB PO PRN (14:45)
--- NOTE | 2017-12-04 15:14 | HHI.PR ---
Subjective Remarks Patient is doing well postop claims to be pain-free as long as he does not move his leg. He is tolerating solid food. Denies any nausea now or overnight Objective Vitals Vital Signs Date Time Temp Pulse Resp B/P (MAP) Pulse Ox O2 Delivery O2 Flow Rate FiO2 12/04/17 13:17 88 12/04/17 12:20 87 12/04/17 12:00 97.5 87 16 106/66 (79) 95 12/04/17 08:00 97.3 74 16 134/73 (93) 96 12/04/17 07:47 76 12/04/17 05:44 96.7 74 18 139/80 (99) 96 12/04/17 03:48 84 12/03/17 23:46 75 12/03/17 23:40 Nasal Cannula 2.00 12/03/17 23:00 96.7 86 18 121/84 (96) 97 12/03/17 20:43 77 12/03/17 19:24 97.1 71 18 138/78 (98) 98 12/03/17 16:46 96.5 80 17 144/89 (107) 98 12/03/17 16:00 98.5 68 18 135/60 (85) 99 Nasal Cannula 2 12/03/17 15:30 71 17 143/76 (98) 99 Nasal Cannula 2 12/03/17 15:15 79 20 130/76 (94) 98 Nasal Cannula 2 I/O 12/03/17 12/03/17 12/03/17 12/04/17 12/04/17 12/04/17 07:00 15:00 23:00 07:00 15:00 23:00 Intake Total 700 ml 100 ml 1360 ml 1626 ml Output Total 15 ml 250 ml Balance 685 ml 100 ml 1110 ml 1626 ml Intake Oral 360 ml IV Total 100 ml 1000 ml 1626 ml Other 700 ml Output Urine Total 250 ml Estimated Blood Loss 15 ml # Voids 1 # Bowel Movements 0 Result Diagram: 12/04/17 0420 12/03/17 0615 Objective Remarks GENERAL: Well-nourished, well-developed patient. SKIN: Warm and dry. HEAD: Normocephalic. EYES: No scleral icterus. No injection or drainage. NECK: Supple, trachea midline. No JVD or lymphadenopathy. CARDIOVASCULAR: Regular rate and rhythm without murmurs, gallops, or rubs. RESPIRATORY: Breath sounds equal bilaterally. No accessory muscle use. GASTROINTESTINAL: Abdomen soft, non-tender, nondistended. EXTREMITIES: Limited range of motion in the right leg following hip surgery NEUROLOGICAL: Awake, alert, and oriented x 3. Non-focal. A/P Problem List: (1) Hip fracture ICD Code: S72.009A - Fracture of unspecified part of neck of unspecified femur , initial encounter for closed fracture Status: Acute Assessment and Plan Right hip fracture Status post ORIF of the right hip Doing well postop tolerating food Pain adequately controlled Expect discharge tomorrow Appreciate orthopedic surgery Early dementia Resume home meds Hypertension Continue with home meds DVT prophylaxis Lovenox Problem Qualifiers (1) Hip fracture: Qualified Codes: S72.001A - Fracture of unspecified part of neck of right femur , initial encounter for closed fracture Alexandre Carter MD Dec 04, 2017 15:14
[2017-12-04] MEDS: CEPHALEXIN MONOHYDRATE 500 MG CAP PO SCH (16:17)
[2017-12-04] MEDS: DOCUSATE SODIUM 100 MG/10 ML UDC PO SCH (16:17)
[2017-12-04] MEDS: SENNOSIDES 8.6 MG TAB PO SCH (21:13)
[2017-12-05] VITALS: BP 142/79; PULSE 81; RESP 18; TEMP 98.1; O2SAT 95
[2017-12-05 01:07] VITALS: PULSE 81
[2017-12-05] MEDS ORDERED: ENOXAPARIN SODIUM 30 MG/0.3 ML SYRINGE SQ SCH (03:00)
[2017-12-05] MEDS: LACTATED RINGER'S 1000 ML INJ 1,000 ML IV SCH ×2 (03:31→12:59)
[2017-12-05 04:00] VITALS: BP 132/81; PULSE 81; RESP 20; TEMP 97.7; O2SAT 97
[2017-12-05] MEDS: CEPHALEXIN MONOHYDRATE 500 MG CAP PO SCH (06:17)
[2017-12-05 08:00] VITALS: BP 127/85; PULSE 84; RESP 16; TEMP 97.7; O2SAT 98
--- NOTE | 2017-12-05 08:11 | PD.ORT.PN ---
Subjective Post Op Day #: 2 Subjective Remarks denies pain. thinks he is doing well. Objective Vitals Vital Signs Date Time Temp Pulse Resp B/P (MAP) Pulse Ox O2 Delivery O2 Flow Rate FiO2 12/05/17 04:00 97.7 81 20 132/81 (98) 97 12/05/17 01:07 81 12/05/17 00:00 98.1 81 18 142/79 (100) 95 12/04/17 22:41 90 12/04/17 22:07 Room Air 12/04/17 18:06 91 12/04/17 17:44 84 12/04/17 17:03 84 12/04/17 16:47 84 12/04/17 16:00 98.2 83 16 127/77 (94) 98 12/04/17 15:15 79 12/04/17 13:17 88 12/04/17 12:20 87 12/04/17 12:00 97.5 87 16 106/66 (79) 95 I/O 12/04/17 12/04/17 12/04/17 12/05/17 12/05/17 12/05/17 07:00 15:00 23:00 07:00 15:00 23:00 Intake Total 1360 ml 2186 ml 310 ml 220 ml Output Total 250 ml 450 ml Balance 1110 ml 2186 ml 310 ml -230 ml Intake Oral 360 ml 560 ml 240 ml 220 ml IV Total 1000 ml 1626 ml 70 ml Output Urine Total 250 ml 450 ml # Voids 1 3 1 2 # Bowel Movements 0 0 0 0 Result Diagram: 12/04/17 0420 12/03/17 0615 Objective Remarks Dressing dry. No significant swelling. No calf tenderness. Neuro exam normal Assessment & Plan Ortho Post Op Day #: 2 Problem List: Assessment and Plan Right subcapital femoral neck fracture, impacted. Surgery: ORIF multiple screws, right hip: POD #2 PLAN: Toe-touch weight-bearing. Walker for ambulation. ortho stable and cleared for d/c Follow-up in 2 weeks. [place] for pain. Lovenox 30 mg daily for 25 days Possible home with c vs SNF No dressing change. Bobo Meyer Dec 05, 2017 08:11
[2017-12-05] MEDS: MAGNESIUM HYDROXIDE SUSP 30 ML CUP PO SCH (08:32)
[2017-12-05] MEDS: DOCUSATE SODIUM 100 MG/10 ML UDC PO SCH ×2 (08:33→12:54)
[2017-12-05] MEDS: SODIUM CHLORIDE 0.9% FLUSH 10 ML FLUSH IV FLUSH SCH (08:39)
[2017-12-05] MEDS ORDERED: DONEPEZIL HCL 5 MG TAB PO SCH (09:00)
[2017-12-05] MEDS ORDERED: LISINOPRIL 10 MG TAB PO SCH (09:00)
[2017-12-05] MEDS ORDERED: BISACODYL 10 MG SUPP RECTAL PRN (09:45)
[2017-12-05 12:00] VITALS: BP 105/73; PULSE 95; RESP 16; TEMP 96.6; O2SAT 94
--- NOTE | 2017-12-05 12:12 | HHI.DCPOC ---
Discharge Care Plan Diagnosis: (1) Hip fracture Goals to Promote Your Health * To prevent worsening of your condition and complications * To maintain your health at the optimal level Directions to Meet Your Goals Take your medications as prescribed Follow your dietary instruction Follow activity as directed Keep your appointments as scheduled Take your immunizations and boosters as scheduled If your symptoms worsen call your PCP, if no PCP go to Urgent Care Center or Emergency Room Smoking is Dangerous to Your Health. Avoid second hand smoke Call the 24-hour hour crisis hotline for domestic abuse at Padma Tracey MD Dec 05, 2017 12:12
[2017-12-05] MEDS ORDERED: WALKER WHEELS/F1 MIS (12:16)
--- NOTE | 2017-12-05 15:32 | HHI.PR ---
Subjective Remarks Pt seen and examined. AFVSS. No acute events overnight. Reports he is feeling well and pain is controlled. Would like to go to rehab. Tolerating PO. Denies N/ V, abdominal pain, CP, or SOB. Objective Vitals Vital Signs Date Time Temp Pulse Resp B/P (MAP) Pulse Ox O2 Delivery O2 Flow Rate FiO2 12/05/17 12:00 96.6 95 16 105/73 (84) 94 12/05/17 08:00 97.7 84 16 127/85 (99) 98 12/05/17 04:00 97.7 81 20 132/81 (98) 97 12/05/17 01:07 81 12/05/17 00:00 98.1 81 18 142/79 (100) 95 12/04/17 22:41 90 12/04/17 22:07 Room Air 12/04/17 18:06 91 12/04/17 17:44 84 12/04/17 17:03 84 12/04/17 16:47 84 12/04/17 16:00 98.2 83 16 127/77 (94) 98 I/O 12/04/17 12/04/17 12/04/17 12/05/17 12/05/17 12/05/17 07:00 15:00 23:00 07:00 15:00 23:00 Intake Total 1360 ml 2186 ml 310 ml 220 ml Output Total 250 ml 450 ml Balance 1110 ml 2186 ml 310 ml -230 ml Intake Oral 360 ml 560 ml 240 ml 220 ml IV Total 1000 ml 1626 ml 70 ml Output Urine Total 250 ml 450 ml # Voids 1 3 1 2 # Bowel Movements 0 0 0 0 Result Diagram: 12/04/17 0420 12/03/17 0615 Other Results Last Impressions Hip X-Ray 12/03/17 0000 Signed Impressions: Service Date/Time: November 14:05 - CONCLUSION: 1. Status post compression screw fixation of the right femoral neck, as above. Geovanny Durand MD Lower Extremity CT 12/02/17 0000 Signed Impressions: Service Date/Time: Saturday, December 02, 2017 15:27 - CONCLUSION: Subtle impacted fracture of the femoral neck. Seen best on series 3 image 31 and series 4 images 30 and 31. Akash Frost MD FACR Hip and Pelvis X-Ray 12/02/17 0000 Signed Impressions: Service Date/Time: Saturday, December 02, 2017 14:23 - CONCLUSION: 1. No acute fracture. 2. Postsurgical changes suggestive of prior prostatectomy with bilateral side wall dieudonne dissection, hernia mesh repair and vasectomy. 3. Severe degenerative disc disease at L4-5. Milo Shultz MD Femur X-Ray 12/02/17 0000 Signed Impressions: Service Date/Time: Saturday, December 02, 2017 15:42 - CONCLUSION: Negative for fracture. Akash Frost MD FACR Chest X-Ray 12/02/17 0000 Signed Impressions: Service Date/Time: Saturday, December 02, 2017 17:19 - CONCLUSION: No acute disease. Akash Frost MD FACR Objective Remarks GENERAL: WN, WD pleasant elderly male laying comfortably in bed in NAD. SKIN: Warm and dry. HEENT: Pupils equal and round. MMM. NECK: Supple no tender LAD or JVD. HEART: RRR no m/r/g. LUNGS: CTAB without wheezes or crackles. ABDOMEN: Soft, NT, ND. EXTREMITIES: Dressing over R hip C/D/I. NEURO: Awake and alert. PSYCH: Appropriate mood and affect. Procedures Open internal fixation right hip 12/03/17 A/P Problem List: (1) Hip fracture ICD Code: S72.009A - Fracture of unspecified part of neck of unspecified femur , initial encounter for closed fracture Status: Acute Assessment and Plan Right hip fracture Status post ORIF of the right hip on 12/03/17 H&H stable Tolerating PO and pain adequately controlled Appreciate orthopedic surgery Early dementia Resume home meds Hypertension Continue with home meds H/O left septic knee arthritis w/ hardware Continue suppressive tx with Keflex DVT prophylaxis Lovenox Discharge Planning D/C to rehab today. Case management assisting Problem Qualifiers (1) Hip fracture: Qualified Codes: S72.001A - Fracture of unspecified part of neck of right femur , initial encounter for closed fracture Padma Tracey MD Dec 05, 2017 15:32
--- NOTE | 2017-12-06 20:31 | HHI.DS ---
Discharge Summary Admission Date Dec 02, 2017 at 19:07 Discharge Date: Dec 05, 2017 Admitting Diagnosis R HIP FX (1) Hip fracture ICD Code: S72.009A - Fracture of unspecified part of neck of unspecified femur , initial encounter for closed fracture Status: Acute Procedures Open internal fixation right hip 12/03/17 Brief History - From Admission states he was at a home he was there picking up his own arrangements it was facility, states he elligible for that he states he just tripped and fell tripped on metal threshold fell forward wtih his right knee did not hit head no syncope no premonitory symptoms prior to fall CBC/BMP: 12/04/17 0420 12/03/17 0615 Significant Findings Laboratory Tests Test 12/04/17 04:20 Hemoglobin 11.9 GM/DL (13.0-17.0) Hematocrit 34.3 % (39.0-51.0) Imaging Last Impressions Hip X-Ray 12/03/17 0000 Signed Impressions: Service Date/Time: November 14:05 - CONCLUSION: 1. Status post compression screw fixation of the right femoral neck, as above. Geovanny Durand MD Lower Extremity CT 12/02/17 0000 Signed Impressions: Service Date/Time: Saturday, December 02, 2017 15:27 - CONCLUSION: Subtle impacted fracture of the femoral neck. Seen best on series 3 image 31 and series 4 images 30 and 31. Akash Frost MD FACR Hip and Pelvis X-Ray 12/02/17 0000 Signed Impressions: Service Date/Time: Saturday, December 02, 2017 14:23 - CONCLUSION: 1. No acute fracture. 2. Postsurgical changes suggestive of prior prostatectomy with bilateral side wall dieudonne dissection, hernia mesh repair and vasectomy. 3. Severe degenerative disc disease at L4-5. Milo Shultz MD Femur X-Ray 12/02/17 0000 Signed Impressions: Service Date/Time: Saturday, December 02, 2017 15:42 - CONCLUSION: Negative for fracture. Akash Frost MD FACR Chest X-Ray 12/02/17 0000 Signed Impressions: Service Date/Time: Saturday, December 02, 2017 17:19 - CONCLUSION: No acute disease. Akash Frost MD FACR PE at Discharge GENERAL: WN, WD pleasant elderly male laying comfortably in bed in NAD. SKIN: Warm and dry. HEENT: Pupils equal and round. MMM. NECK: Supple no tender LAD or JVD. HEART: RRR no m/r/g. LUNGS: CTAB without wheezes or crackles. ABDOMEN: Soft, NT, ND. EXTREMITIES: Dressing over R hip C/D/I. NEURO: Awake and alert. PSYCH: Appropriate mood and affect. Hospital Course 82 YOWM admitted on 12/02/17 for right hip fracture after a mechanical fall. Orthopedic surgery was consulted and he went right total hip arthroplasty on . He was discharged in stable condition to a SNF on 12/05. Pt Condition on Discharge: Stable Discharge Disposition: Discharge to SNF Discharge Time: > 30 minutes Discharge Instructions DIET: Follow Instructions for: As Tolerated, No Restrictions Activities you can perform: Toe Touch Weight Bearing Follow up Referrals: Orthopedics - 2 Weeks with Alex Gill MD PCP Follow-up - 2 Weeks PCP Follow-up @ New Medications: Walker with Front Wheels (Walker with Front Wheels) 1 Mis Mis EA .XX DIRECTED, #1 0 Refills Enoxaparin Inj (Lovenox Inj) 30 Mg/0.3 Ml Syr 30 MG SQ Q24H for Prevent Blood Clot, #25 INJECTION Hydrocodone/Acetaminophen (Hydrocodone-Acetamin 7.5-325) 7.5 Mg-325 Mg Tablet 1 TAB PO Q4H PRN for PAIN, #25 TAB Continued Medications: Ascorbic Acid Powder (Vitamin C Powder) 1 Pow Pow BID Cephalexin (Keflex) 500 Mg Cap 500 MG PO Q12H for Infection, CAP 0 Refills Cholecalciferol (Vitamin D3) 2,000 Unit Cap 2000 UNITS PO BID for Nutritional Supplement, #1 BOTTLE 0 Refills Coenzyme Q10 (Ubidecarenone) (Co Q-10) 200 Mg Cap 1 CAP PO DAILY Cyanocobalamin (Vitamin B-12) 1,000 Mcg Subl 1000 MCG SL DAILY for Nutritional Supplement, TAB.SL 0 Refills Docusate Sodium (Docusate Sodium) 250 Mg Cap 250 MG TID for Prevent Constipation, #1 CAP 0 Refills Donepezil (Donepezil) 10 Mg Tab 10 MG PO DAILY for Dementia, #30 TAB 0 Refills Lisinopril (Lisinopril) 30 Mg Tab 30 MG PO DAILY for Blood Pressure Management, #1 TAB 0 Refills Oregano (Oil of Oregano) 1,500 Mg Cap BID Polyethylene Glycol 3350 Powder (Miralax Powder) 17 Gm Powd 17 GM PO DAILY for Constipation, #1 CAN 0 Refills Mix and dissolve one measuring cap-ful (17 grams) in water or juice. Pyridoxine (Vitamin B-6) 100 Mg Tab 100 MG PO DAILY for Nutritional Supplement, #30 TAB 0 Refills Saccharomyces Boulardii (Probiotic) 250 Mg Cap 250 MG PO BID for Nutritional Supplement, CAP 0 Refills [Magtein] () 1 CAP PO DAILY Padma Tracey MD Dec 06, 2017 20:31
== END 2017-12-05 17:44 | DRG 482 ==
LOC: NEPE 14:03 → NEDA 19:07 → NEPGCP 21:22 → N06B 12-03 11:14 → N06A 12-03 16:17
PROVIDERS: ADMIT Family Medicine; ATTEND Family Medicine
PROC: 2W6LX0Z Traction of Right Lower Extremity using Traction Apparatus (ICD-10-PCS; 2017-12-02)
PROC: 0QS604Z Reposition Right Upper Femur with Internal Fixation Device, Open Approach (ICD-10-PCS; principal; 2017-12-03 13:10)
DX: S72.011A Unspecified intracapsular fracture of right femur, initial encounter for closed fracture (principal); W01.0XXA Fall on same level from slipping, tripping and stumbling without subsequent striking against object, initial encounter; Y92.89 Other specified places as the place of occurrence of the external cause; F03.90 Unspecified dementia, unspecified severity, without behavioral disturbance, psychotic disturbance, mood disturbance, and anxiety; I10 Essential (primary) hypertension; H91.90 Unspecified hearing loss, unspecified ear; K21.9 Gastro-esophageal reflux disease without esophagitis; M19.049 Primary osteoarthritis, unspecified hand; Z87.891 Personal history of nicotine dependence; Z85.46 Personal history of malignant neoplasm of prostate; Z96.653 Presence of artificial knee joint, bilateral
CPT/HCPCS: 71045; 73502; 73552; 73700; 76000; 80048; 81001; 82948; 85014; 85018; 85025; 85610; 85730; 93005; 94150; C1713; J0131; J0690; J1100; J1580; J1650; J2405; J2710; J3010; J7120